=== PATIENT | male | born 1945 | race Caucasian/White ===

== ENCOUNTER → 2020-06-13 12:41 | Outpatient (CLI) | payer SELFPAY ==
[2020-06-13 10:41] VITALS: BMI 32.5
--- NOTE | 2020-06-13 12:55 | RAD_ITS ---
STUDY: X-RAY CHEST REASON FOR EXAM: Male, 75 years old. CHEST PAIN AND SOB ON EXERTION FOR AWHILE, TECHNIQUE: PA and lateral views of the chest. COMPARISON: None. FINDINGS: There is hyperinflation of the lungs consistent with chronic obstructive lung disease (COPD). There is no demonstrated pleural abnormality. Normal size heart. Normal mediastinum and tuyet. Normal visualized pulmonary arteries. There is atherosclerotic tortuosity of the aortic arch and descending thoracic aorta. Normal visualized thoracic spine. Normal visualized ribs, clavicles, and shoulders. There is no demonstrated abnormality of the visualized soft tissue structures of the upper abdomen. RAD/Chest PA and Lateral IMPRESSION: Emphysema without pneumonia or atelectasis. Electronically Signed: Preet Taylor MD at 16:59 EST Tel , Service support ,
[2020-06-13 14:16] LABS: Absolute Lymphocyte Count 1.89 X10^3/uL (0.83-4.51); Absolute Neutrophil Count 3.5 X10^3/uL (2.0-7.7); Basophil# 0.03 X10^3/uL; Basophil% 0.5 % (0-1); Eosinophil# 0.49 X10^3/uL; Eosinophils% 7.7 % (0-5); Hematocrit 42.6 % (40-54); Hemoglobin 13.7 g/dL (13.0-16.5); Lymphocyte # 1.89 X10^3/ul (4.0); Lymphocyte % 29.6 % (19-41); Mean Corp Hgb Conc 32.2 g/dL (32-36); Mean Corpuscular Hgb 29.3 pg (27.0-32.0); Monocyte# 0.51 X10^3/uL; NRBC Flagged by Analyzer 0 % (0-5); Neutrophil # 3.45 X10^3/uL (2.7-7.7); Platelet Count 165 K/mm3 (150-450); RBC Distribution Width CV 13.7 % (11.6-14.6); RBC Distribution Width SD 46.1 fl (35.1-43.9); Red Blood Count 4.68 M/mm3 (4.6-6.2); White Blood Count 6.4 K/mm3 (4.4-11.0)
[2020-06-13 14:22] LABS: International Normalized Ratio 1.5
[2020-06-13 14:23] LABS: Partial Thromboplast Time 40.7 Seconds (24.1-36.2)
[2020-06-13 14:42] LABS: AST(SGOT) 25 U/L (15-37); Alanine Aminotransfer ALT/SGPT 31 U/L (16-61); Albumin, Serum 3.7 g/dL (3.2-5.0); Alkaline Phosphatase 68 U/L (45-117); Anion Gap 5 (5-15); BUN 16 mg/dL (7-18); BUN/Creat Ratio 14.7 RATIO (10-20); Bilirubin, Direct 0.18 mg/dL (0.00-0.30); Calcium,Total 9.1 mg/dL (8.5-10.1); Chloride 102 mmol/L (98-107); Cholesterol 138 mg/dL (200); Creatinine, Serum 1.09 mg/dL (0.70-1.30); EST Glomerular Filtration Rate 70 mL/min (>60); Est Glom Filt Rate - Afr Amer 84 mL/min (>60); Globulin 4.1 g/dL (2.2-4.2); Glucose 95 mg/dL (74-106); High Density Lipoprotein 51 mg/dL; Potassium 4.4 mmol/L (3.5-5.1); Protein, Total 7.8 g/dL (6.4-8.2); Sodium Level 138 mmol/L (136-145); Triglycerides 159 mg/dL; Very Low Density Lipoprotein 32 mg/dL (5-40)
== END ==
PROVIDERS: PCP Internal Medicine; Referring Provider Internal Medicine Cardiovascular Disease; Visit Provider Internal Medicine Cardiovascular Disease
DX: R07.9 Chest pain, unspecified (principal); E78.00 Pure hypercholesterolemia, unspecified; I20.9 Angina pectoris, unspecified; I35.0 Nonrheumatic aortic (valve) stenosis; E78.2 Mixed hyperlipidemia; I10 Essential (primary) hypertension; I73.9 Peripheral vascular disease, unspecified; Z86.718 Personal history of other venous thrombosis and embolism
CPT/HCPCS: 36415; 71046; 80048; 80061; 80076; 85025; 85610; 85730

== ENCOUNTER → 2020-06-18 13:06 | Outpatient (CLI) | payer SELFPAY ==
[2020-06-13 10:41] VITALS: BMI 32.5
--- NOTE | 2020-06-18 13:17 | ECHOD_ITS ---
Reason For Study: Murmur Procedure This was a 2D Doppler, Color Flow transthoracic echocardiogram. The exam was of adequate technical quality. Exam performed in department. Left Ventricle Normal LV size. Left ventricular systolic function is normal. The estimated ejection fraction is 65 %. No evidence for diastolic dysfunction. No regional wall motion abnormalities noted. Right Ventricle Normal RV size. Normal systolic function. Atria The left atrium is mildly enlarged. Normal right atrium. No doppler evidence for ASD. Mitral Valve There is mild to moderate mitral annular calcification. Extension of the mitral annular calcification onto the base of the posterior mitral valve leaflet. Trivial mitral valve insufficiency. Tricuspid Valve Normal tricuspid valve. Trivial tricuspid valve insufficiency. Aortic Valve Trisinus/trileaflet aortic valve. Mild diffuse aortic valve thickening. Moderate to severe aortic valve calcification. Moderate to severe aortic valve stenosis. Trivial aortic valve insufficiency. Pulmonic Valve The pulmonic valve is not well visualized. Great Vessels Mild to moderately dilated aortic root. Pericardium/Pleural No pericardial effusion. MMode/2D Measurements & Calculations LVIDd: 4.9 cm IVSd: 0.81 cm LVOT diam: 2.2 cm LVIDs: 3.5 cm LVPWd: 1.2 cm LVOT area: 3.9 cm2 RVDd: 3.4 cm FS: 27.1 % LAV(MOD-bp): 75.8 ml Aortic Valve Planimetry: 1.1 cm2 LA A4 area: 23.4 cm2 LAV(MOD-bp) Indexed: 32.9 ml/m2 LAV(MOD-sp2): 77.8 ml LAV(MOD-sp4): 69.4 ml RA A4 area: 19.4 cm2 Time Measurements MV dec time: 0.27 sec Doppler Measurements & Calculations MV E max bon: 86.0 cm/sec Lat Peak E' Bon: 7.9 cm/sec Med Peak E' Bon: 6.5 cm/sec MV A max bon: 99.2 cm/sec E/E' lat: 10.8 E/E' med: 13.2 MV E/A: 0.87 MV V2 max: 108.0 cm/sec MV P1/2t max bon: 91.3 cm/sec Ao V2 max: 375.7 cm/sec MV max P.7 mmHg MV P1/2t: 97.4 msec Ao max P.5 mmHg MV V2 mean: 62.3 cm/sec MV dec slope: 274.6 cm/sec2 Ao V2 mean: 254.6 cm/sec MV mean P.8 mmHg Ao mean P.4 mmHg MV V2 VTI: 34.0 cm MVA(P1/2t): 2.3 cm2 Ao V2 VTI: 88.2 cm MVA(VTI): 3.1 cm2 EVERARDO(I,D): 1.2 cm2 EVERARDO(V,D): 1.0 cm2 AI max bon: 332.6 cm/sec LV V1 max: 97.6 cm/sec SV(LVOT): 104.3 ml AI max P.3 mmHg LV V1 max P.8 mmHg LV V1 mean P.3 mmHg AI dec slope: 128.1 cm/sec2 LV V1 mean: 70.4 cm/sec AI P1/2t: 760.8 msec LV V1 VTI: 26.9 cm PA V2 max: 104.0 cm/sec Interpretation Summary Left ventricular systolic function is normal. The estimated ejection fraction is 65 %. The left atrium is mildly enlarged. There is mild to moderate mitral annular calcification. Extension of the mitral annular calcification onto the base of the posterior mitral valve leaflet. Trivial mitral valve insufficiency. Trivial tricuspid valve insufficiency. Moderate to severe aortic valve stenosis. Trivial aortic valve insufficiency. Mild to moderately dilated aortic root. No evidence for diastolic dysfunction. Ordering Physician: Freddie Cantrell Referring Physician: Conor Contreras Performed By: Anoop Watkins RCS
== END ==
PROVIDERS: PCP Internal Medicine; Visit Provider Internal Medicine Cardiovascular Disease
DX: R01.1 Cardiac murmur, unspecified (principal); I20.9 Angina pectoris, unspecified; I35.0 Nonrheumatic aortic (valve) stenosis; I73.9 Peripheral vascular disease, unspecified; I10 Essential (primary) hypertension; E78.2 Mixed hyperlipidemia; Z86.718 Personal history of other venous thrombosis and embolism
CPT/HCPCS: 93306

== ENCOUNTER 2020-06-21 07:48 | Day surgery (SDC) | payer SELFPAY ==
[2020-06-13 10:41] VITALS: BMI 32.5
[2020-06-20 09:23] VITALS: BMI 32.5
--- NOTE | 2020-06-21 05:00 | HP_ITS ---
ADDENDUM by Dr. Freddie Cantrell MD on 06/13/20 at 1321 Addendum entered and electronically signed by Freddie Cantrell MD 06/13/20 13:21: Assessment & Plan 1. Nonrheumatic aortic (valve) stenosis I35.0 mild to moderate per ECHO 12/27/19 Plan - Dr. Freddie Cantrell MD The patient has a diagnosis of aortic valve stenosis. Based upon his previous noninvasive studies the degree/severity of aortic valve stenosis appears to is varied. This is included anywhere from mild to moderate to moderate to severe. At the present time based upon his symptoms and his previous diagnosis he will be asked to have a follow-up transthoracic echocardiogram performed. Orders Orders: 12 Lead EKG performed by [facility] Today Left & Right Heart Cath Today Basic Metabolic Profile (BMP) Today Lipid Profile Today Liver Profile Today Partial Thromboplast Time Today Prothrombin Time w/INR Today Echo Complete Today CBC W/Diff, Automated Today Chest PA and Lateral Today 2. Mixed hyperlipidemia E78.2 Plan - Dr. Freddie Cantrell MD The patient has a history of hyperlipidemia. He is on medical management. Orders Orders: Left & Right Heart Cath Today Basic Metabolic Profile (BMP) Today Lipid Profile Today Liver Profile Today Partial Thromboplast Time Today Prothrombin Time w/INR Today Echo Complete Today CBC W/Diff, Automated Today Chest PA and Lateral Today 3. Essential hypertension I10 Plan - Dr. Freddie Cantrell MD The patient has a history of hypertension. At the moment his blood pressure appears to be well controlled on no antihypertensive therapy. Orders Orders: 12 Lead EKG performed by B[facility] Today Left & Right Heart Cath Today Basic Metabolic Profile (BMP) Today Lipid Profile Today Liver Profile Today Partial Thromboplast Time Today Prothrombin Time w/INR Today Echo Complete Today CBC W/Diff, Automated Today Chest PA and Lateral Today 4. Peripheral arterial disease I73.9 Plan - Dr. Freddie Cantrell MD The patient has been evaluated for PAD in the past. The results that are available for review are noted above. Orders Orders: Left & Right Heart Cath Today Basic Metabolic Profile (BMP) Today Lipid Profile Today Liver Profile Today Partial Thromboplast Time Today Prothrombin Time w/INR Today Echo Complete Today CBC W/Diff, Automated Today Chest PA and Lateral Today 5. 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 Freddie Cantrell MD The patient has a history of DVT. It is unclear as to the exact etiology and whether or not he truly has an underlying inheritable/congenital condition. He has been on and then off and then back on anticoagulant therapy. Orders Orders: Left & Right Heart Cath Today Basic Metabolic Profile (BMP) Today Lipid Profile Today Liver Profile Today Partial Thromboplast Time Today Prothrombin Time w/INR Today Echo Complete Today CBC W/Diff, Automated Today Chest PA and Lateral Today 6. Angina pectoris I20.9 Plan - Dr. Freddie Cantrell MD The patient has symptoms that is concerning for an exertional angina pectoris scenario. This does raise concern about a relationship to his aortic valve disease but also with respect to the possibility of underlying CAD based upon his cardiovascular risk factors. Orders Orders: Left & Right Heart Cath Today Basic Metabolic Profile (BMP) Today Lipid Profile Today Liver Profile Today Partial Thromboplast Time Today Prothrombin Time w/INR Today Echo Complete Today CBC W/Diff, Automated Today Chest PA and Lateral Today Plan Detail Other Orders Orders: 12 Lead EKG performed by B[facility] Today I34.0, I35.1 Lipid Profile Today E78.00 Liver Profile Today E78.00 Other Medications New: aspirin 81 mg PO DAILY 1 tab 0RF Additional Comments - Dr. Freddie Cantrell MD The case was reviewed with the patient with his daughter present. At the present time he has been recommended to have a follow-up echocardiogram to reassess his aortic valve disorder. However based upon his symptoms and his known diagnosis and his cardiovascular risks he is also been recommended to have further evaluation with a diagnostic cardiac catheterization to evaluate not only his aortic valve disorder but also for the possibility of CAD. The procedure and risks were discussed with them. They were both agreeable to this approach. There was also discussion with respect to how to manage his anticoagulant therapy in and around the time of a diagnostic cardiac catheterization. The options included interruption of anticoagulant therapy with bridging anticoagulant therapy versus no bridging anticoagulant therapy. The patient's daughter states that when he was without his anticoagulant therapy it was for a long period of time and there was a question as to whether or not he had a recurrent DVT. She states there was no acute events soon after his lack of anticoagulant therapy. Thus, she was hopeful, as well as the patient, that this could be done without bridging anticoagulant therapy based upon his clinical scenario and lack of definitive diagnosis of any inheritable/congenital coagulopathy. The risks and benefits of bridging versus nonbridging anticoagulant therapy were discussed with him. At the present time they wanted to proceed with the above evaluation without bridging anticoagulant therapy. Depending upon the patient's findings he may need not only medical therapy but consideration for further tertiary care center evaluation of possible underlying CAD as well as his valvular heart disease. Thank you for allowing me to participate in the care of your patient. Please don't hesitate to call if any issues arise. This note was generated using a voice recognition system and there may be incorrect words, spelling or punctuation that were not noted when reviewing the office note prior to saving. Health Concerns The surgeon/proceduralist and patient have discussed in detail the risk of exposure to and/or potential harm posed by the COVID-19 virus with having a surgery/procedure at this time versus the risk of? delaying the surgery/procedure. It is not possible to know either the risk of delaying the surgery or procedure or chance of getting an infection with perfect accuracy, but a joint decision was made between the patient and the surgeon/proceduralist ?to proceed at this time with the scheduled surgery/procedure as indicated on the consent form. Follow Up 3 Months (PFM) 06/13/20 1321 <Electronically signed by Freddie faulkner MD> Date _ Freddie Cantrell MD cc: Dr. Conor Contreras MD ~* Signed HPI HPI History of Present Illness Details: This is a 75-year-old white male who presents today for outpatient cardiovascular consultation of a history of underlying aortic valve stenosis as well as concerns of exertional chest discomfort and shortness of breath/dyspnea concerning for angina pectoris. He states he has been followed in the past for a cardiac murmur and is somewhat knowledgeable about his underlying aortic valve disease. It appears that in December 2019 he had a transthoracic echocardiogram performed through the [facility] system. The left ventricle was reported as normal with an LVEF 65% with mild increased wall thickness, the mitral valve annulus was mildly calcified and there was mild MR, there was mild TR, the aortic valve was reported as having mild to moderate stenosis with mild AI, however his aortic valve area was reported at 0.9 cm?, the pulmonic valve had trivial OH. He had an echocardiogram performed through the same system in November 2018. Per that report he was reported as having an LVEF of 60%, concentric LVH, and moderate to severe aortic valve stenosis with an aortic valve area of 1.1 cm?. It also appears that in September 2014 he had a study done of his lower extremities which reported no evidence of arterial insufficiency in a nonexercised patient involving the right lower extremity or the left lower extremity. He also had a study done in August 2016 that stated he had chronic nonocclusive echogenic filling with abnormal compressibility involving the deep and superficial veins in the right common femoral vein, the right femoral vein, the right deep femoral vein, the right popliteal vein, the right posterior tibial vein, and the right greater saphenous vein which were consistent with the absence of acute DVT in the right lower extremity. He states that when he exerts himself he gets chest discomfort/pressure/tightness as well as feels short of breath. This improves when he stops and rests. He does not have orthopnea or PND. He states he has worn support stockings because of his history of DVT. He does not recall the etiology of his DVT. There is been no definitive inheritable condition diagnosed. He states he has been on warfarin for a long time. He was off of it for a long time. His daughter who is with him states that she believes at some point in time after he was off of it he may have developed recurrent DVT. He was placed back on his warfarin therapy and has remained on it. There is been no report of any recent acute DVT. He had an ECG in the office today. He was noted to be in sinus rhythm with no acute ECG changes. Intake Vital Signs 06/13/20 Height 6 ft 06/13/20 Weight: 240 lb 06/13/20 BMI 32.5 06/13/20 BP 102/60 06/13/20 Blood Pressure Location Lt brachial 06/13/20 Position Sitting 06/13/20 Respiration 18 06/13/20 Pulse 68 06/13/20 Pulse Source Auscultation Intake Visit Reasons: aortic valve stenosis/Ref. 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 Accompanied by: Daughter Allergies Penicillins Allergy (Unknown, Verified 06/13/20 10:41) unknown Medications atorvastatin 20 mg tablet 20 mg PO QHS 06/03/20 [History Confirmed 06/13/20] pantoprazole 40 mg tablet,delayed release 40 mg PO DAILY 06/03/20 [History Confirmed 06/13/20] tamsulosin 0.4 mg capsule 0.4 mg PO QHS 06/03/20 [History Confirmed 06/13/20] warfarin 5 mg tablet 5 mg PO DAILY 06/03/20 [History Confirmed 06/13/20] aspirin 81 mg tablet,delayed release 81 mg PO DAILY #1 tab 06/13/20 [Rx Confirmed 06/13/20] omega-3 fatty acids 1,000 mg capsule 1,000 mg PO DAILY 06/13/20 [History Confirmed 06/13/20] [facility] Medical History Mixed hyperlipidemia (Chronic) GERD (gastroesophageal reflux disease) (Chronic) PAD (peripheral artery disease) (Chronic) Non-rheumatic mitral regurgitation (Acute) Non-rheumatic aortic regurgitation (Acute) Nonrheumatic aortic (valve) stenosis (Chronic) Essential hypertension (Chronic) History of DVT (deep vein thrombosis) (Chronic) BPH (benign prostatic hyperplasia) (Chronic) Peripheral neuropathy (Chronic) Surgical History History of hernia repair (Resolved) Family History Other Sudden cardiac Social History (Updated 06/13/20 @ 13:[address] Freddie Cantrell MD) Smoking Status: Former smoker alcohol intake: never substance use type: does not use caffeine: Yes Type: coffee Number of servings: 1 ROS Const Const: Positive for fatigue (increased); negative for weakness, frequent falls, excessive sweating, weight gain or weight loss Eyes Eyes: Negative for transient loss of vision, blurry vision or change in vision ENT ENT: Positive for balance problems (slight); negative for dizziness Cardio Chest Pain: Yes Character: sharp Onset: exercise Location: mid sternal Relieving: rest Palpitations: No Edema: None (wears compression socks) Muscle aches with walking: None Resp Respiratory: Negative for SOB with activity, SOB at rest, SOB orthopnea\SOB lying down, Cough, Coughing up blood/hemoptysis, chest congestion, pain on inspiration, snoring, stridor, wheezing, crackles, paroxysmal nocturnal dyspnea or other GI GI: Negative vomiting or vomiting blood/hematemesis : Negative for hematuria Musc Musc: Positive for balance problems (slight); negative for muscle aches/ myalgia, muscle weakness or joint pain Skin Skin: Negative non-healing lesions or rash Neuro Neuro: Negative for dizziness, lightheadedness, orthostatic symptoms, frequent falls, weakness or blurry vision Robert Hematologic/Lymphatic: Negative for easy bleeding Endo Endo: Positive for fatigue (increased); negative for excessive sweating Psych Psych: Negative for anxiety or depression Allergy Allergy/Immunology: Negative for hives, Negative for rash Cardiology Exam Const Appearance: cooperative, healthy appearing, comfortable, no acute distress, well developed and well groomed Nutritional Appearance: overweight Orientation: alert, awake and oriented x3 Head Head: normal to inspection, normocephalic and atraumatic Ears: hearing grossly normal bilaterally Nose: external nose normal Face and Sinus: face symmetric Eyes Eyelids: eyelids normal Conjunctivae: conjunctivae normal Pupils: PERRL EOM: EOM intact bilaterally Neck Neck: normal visual inspection and full ROM Chest Chest inspection: normal inspection of the chest, symmetric chest movement and normal respiratory effort Auscultation: Bilateral: Clear to Auscultation Cardio Palpation: normal PMI Rate: regular rate Rhythm: regular rhythm Heart sounds: S1 normal and S2 normal Murmur: Grade 3/6, harsh and crescendo-decrescendo GI GI: normal to inspection, no hepatosplenomegaly and bowel sounds present Neuro General: alert, awake, oriented x3 and moves all extremities Skin Skin: no rashes or lesions noted Extremities Bruits: Positive: Right Radial Bruit, Left Radial Bruit Lower Extremity Edema: +1: Bilateral Bilateral support stockings Psych Psychological: normal affect Assessment & Plan 1. Nonrheumatic aortic (valve) stenosis I35.0 mild to moderate per ECHO 12/27/19 Plan The patient has a diagnosis of aortic valve stenosis. Based upon his previous noninvasive studies the degree/severity of aortic valve stenosis appears to is varied. This is included anywhere from mild to moderate to moderate to severe. At the present time based upon his symptoms and his previous diagnosis he will be asked to have a follow-up transthoracic echocardiogram performed. Orders Orders: 12 Lead EKG performed by [facility] Today Left & Right Heart Cath Today Basic Metabolic Profile (BMP) Today Lipid Profile Today Liver Profile Today Partial Thromboplast Time Today Prothrombin Time w/INR Today Echo Complete Today CBC W/Diff, Automated Today Chest PA and Lateral Today 2. Mixed hyperlipidemia E78.2 Plan The patient has a history of hyperlipidemia. He is on medical management. Orders Orders: Left & Right Heart Cath Today Basic Metabolic Profile (BMP) Today Lipid Profile Today Liver Profile Today Partial Thromboplast Time Today Prothrombin Time w/INR Today Echo Complete Today CBC W/Diff, Automated Today Chest PA and Lateral Today 3. Essential hypertension I10 Plan The patient has a history of hypertension. At the moment his blood pressure appears to be well controlled on no antihypertensive therapy. Orders Orders: 12 Lead EKG performed by BMS Today Left & Right Heart Cath Today Basic Metabolic Profile (BMP) Today Lipid Profile Today Liver Profile Today Partial Thromboplast Time Today Prothrombin Time w/INR Today Echo Complete Today CBC W/Diff, Automated Today Chest PA and Lateral Today 4. Peripheral arterial disease I73.9 Plan The patient has been evaluated for PAD in the past. The results that are available for review are noted above. Orders Orders: Left & Right Heart Cath Today Basic Metabolic Profile (BMP) Today Lipid Profile Today Liver Profile Today Partial Thromboplast Time Today Prothrombin Time w/INR Today Echo Complete Today CBC W/Diff, Automated Today Chest PA and Lateral Today 5. 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 It is unclear as to the exact etiology and whether or not he truly has an underlying inheritable/congenital condition. He has been on and then off and then back on anticoagulant therapy. Orders Orders: Left & Right Heart Cath Today Basic Metabolic Profile (BMP) Today Lipid Profile Today Liver Profile Today Partial Thromboplast Time Today Prothrombin Time w/INR Today Echo Complete Today CBC W/Diff, Automated Today Chest PA and Lateral Today 6. Angina pectoris I20.9 Plan The patient has symptoms that is concerning for an exertional angina pectoris scenario. This does raise concern about a relationship to his aortic valve disease but also with respect to the possibility of underlying CAD based upon his cardiovascular risk factors. Orders Orders: Left & Right Heart Cath Today Basic Metabolic Profile (BMP) Today Lipid Profile Today Liver Profile Today Partial Thromboplast Time Today Prothrombin Time w/INR Today Echo Complete Today CBC W/Diff, Automated Today Chest PA and Lateral Today Plan Detail Other Orders Orders: 12 Lead EKG performed by BMS Today I34.0, I35.1 Lipid Profile Today E78.00 Liver Profile Today E78.00 Other Medications New: aspirin 81 mg PO DAILY 1 tab 0RF Additional Comments The case was reviewed with the patient with his daughter present. At the present time he has been recommended to have a follow-up echocardiogram to reassess his aortic valve disorder. However based upon his symptoms and his known diagnosis and his cardiovascular risks he is also been recommended to have further evaluation with a diagnostic cardiac catheterization to evaluate not only his aortic valve disorder but also for the possibility of CAD. The procedure and risks were discussed with them. They were both agreeable to this approach. There was also discussion with respect to how to manage his anticoagulant therapy in and around the time of a diagnostic cardiac catheterization. The options included interruption of anticoagulant therapy with bridging anticoagulant therapy versus no bridging anticoagulant therapy. The patient's daughter states that when he was without his anticoagulant therapy it was for a long period of time and there was a question as to whether or not he had a recurrent DVT. She states there was no acute events soon after his lack of anticoagulant therapy. Thus, she was hopeful, as well as the patient, that this could be done without bridging anticoagulant therapy based upon his clinical scenario and lack of definitive diagnosis of any inheritable/congenital coagulopathy. The risks and benefits of bridging versus nonbridging anticoagulant therapy were discussed with him. At the present time they wanted to proceed with the above evaluation without bridging anticoagulant therapy. Depending upon the patient's findings he may need not only medical therapy but consideration for further tertiary care center evaluation of possible underlying CAD as well as his valvular heart disease. Thank you for allowing me to participate in the care of your patient. Please don't hesitate to call if any issues arise. This note was generated using a voice recognition system and there may be incorrect words, spelling or punctuation that were not noted when reviewing the office note prior to saving. Follow Up 3 Months (PFM) Coding Level of Care Code Off vis,new,level 5 Diagnoses Nonrheumatic aortic (valve) stenosis I35.0 Mixed hyperlipidemia E78.2 Essential hypertension I10 Peripheral arterial disease I73.9 History of DVT (deep vein thrombosis) Z86.718 Angina pectoris I20.9 Coding Level of Care Code Off vis,new,level 5 Diagnoses Nonrheumatic aortic (valve) stenosis I35.0 Mixed hyperlipidemia E78.2 Essential hypertension I10 Peripheral arterial disease I73.9 History of DVT (deep vein thrombosis) Z86.718 Angina pectoris I20.9 Supplemental Info Supplemental Information Diagnostics Electrocardiogram 06/13/20 Chest X-Ray 06/13/20 I have examined the patient the following changes are noted: The patient has undergone additional noninvasive valuation with a transthoracic echocardiogram with the results as noted below. Interpretation Summary Left ventricular systolic function is normal. The estimated ejection fraction is 65 %. The left atrium is mildly enlarged. There is mild to moderate mitral annular calcification. Extension of the mitral annular calcification onto the base of the posterior mitral valve leaflet. Trivial mitral valve insufficiency. Trivial tricuspid valve insufficiency. Moderate to severe aortic valve stenosis. Trivial aortic valve insufficiency. Mild to moderately dilated aortic root. No evidence for diastolic dysfunction. As noted before, case has been previously reviewed with the patient with his daughter present. The recommendation was to proceed with further evaluation with diagnostic cardiac catheterization. The procedure and risks were discussed and the patient with his daughter present granted consent.
[2020-06-21 08:21] LABS: Prothrombin Time Fingerstick 14.2 SEC (11.9-14.4)
[2020-06-21 09:46] LABS: Base Excess 2 mmol/L (-2 to +2); Bicarbonate 27.8 mmol/L (22-26); Blood Gas Specimen Type ART; PO2 36 mmHG (75-100); SO2 65 % (95-99); Total Carbon Dioxide 29 mmol/L; pCO2 51.8 mmHg (35-45); pH 7.34 (7.35-7.45)
[2020-06-21 09:46] LABS: Base Excess 3 mmol/L (-2 to +2); Bicarbonate 27.9 mmol/L (22-26); Blood Gas Specimen Type ART; PO2 69 mmHG (75-100); SO2 93 % (95-99); Total Carbon Dioxide 29 mmol/L; pCO2 47.3 mmHg (35-45); pH 7.38 (7.35-7.45)
[2020-06-21 09:55] LABS: Blood Gas Specimen Type VEN; VBG BASE EXCESS 3 mmol/L (-1.0-3.5); VBG Bicarbonate 29 mmol/L (22-26); VBG PO2 38 mmHg (25-40); VBG SO2 67 % (50-70); VBG TCO2 31 mmol/L (23-33); VBG pCO2 54.7 mmHg (41-51); VBG pH 7.33 (7.32-7.42)
[2020-06-21 10:00] LABS: Blood Gas Specimen Type VEN; VBG BASE EXCESS 2 mmol/L (-1.0-3.5); VBG Bicarbonate 28 mmol/L (22-26); VBG PO2 37 mmHg (25-40); VBG SO2 65 % (50-70); VBG TCO2 29 mmol/L (23-33); VBG pCO2 53.1 mmHg (41-51); VBG pH 7.33 (7.32-7.42)
[2020-06-21 10:00] LABS: Blood Gas Specimen Type VEN; VBG BASE EXCESS 2 mmol/L (-1.0-3.5); VBG Bicarbonate 28 mmol/L (22-26); VBG PO2 37 mmHg (25-40); VBG SO2 66 % (50-70); VBG TCO2 30 mmol/L (23-33); VBG pCO2 52.1 mmHg (41-51); VBG pH 7.34 (7.32-7.42)
--- NOTE | 2020-06-21 11:54 | CL.D_ITS ---
Patient Name: MANGO CASE Study Date: 06/21/2020 Performing: Freddie Cantrell MD Ht: 72.04 inches 183 cm : 1945 Wt: 240.3 lbs 109 kg Age: 75 Gender: male BSA: 2.3 PROCEDURE(S) PERFORMED BQ27-EPA/LHC/COR/LV DC11-AO ROOT ANGIO WITH HEART CATH CLINICAL PROFILE AND INDICATIONS Indications: Worsening Angina, Suspected CAD, Valvular Disease Heart Failure: None Stress/Imaging Stress/Image Study Performed: No Angina Classification Anginal Classification w/in 2 Weeks: CCS III CAD Presentations: Stable angina. CONCLUSIONS Elevated Left Ventricular End Diastolic Pressure Right heart pressures - mildly to moderately elevated The patient has pulmonary hypertension which is mild - moderate Intracardiac shunting: None Normal LV size, wall motion,and systolic function LVEF: by LV gram 55 % [place] Multivessel CAD Aortic Valve Calcification- Moderate - Severe Aortic Valve Stenosis- Moderate Aortic Root dilated Aortic Root Aneurysm RECOMMENDATIONS Risk factor modification Medical therapy Routine post intervention care Surgery consult for valvular disease, thoracic aortic disease, and CAD DESCRIPTION OF PROCEDURE The patient arrived to the procedure lab. The risks and benefits of the procedure as well as a full d escription of our services here and current unavailability of surgical backup were fully explained to the patient and/or their significant other prior to the catheterization. The Timeout was completed, verifying the correct patient and procedure. The patient's procedural site was prepped and draped in the usual fashion. Local anesthetic was given subcutaneously to right radial region with Lidocaine 2% . Using a modified Seldinger technique, arterial access was obtained via the right radial artery, a 6 Fr sheath was inserted. Venous access was obtained via the right brachiocephalic vein, with Micropunc ture set replacing the 20g IV in same arm. A 7Fr thermal dilution catheter was inserted and right hea rt pressures were recorded, it was then advanced to PA position for cardiac outputs. O2 saturations w ere then obtained. Thermal dilution cardiac outputs were then recorded. Left Coronary Artery selective angiography was performed in multiple views using a 5 Fr. 4.0 [place] catheter. Right Coronary Artery selective angiography was then performed in multiple views using a 6 Fr. JR 4 cathete r. Left Ventriculography was performed in [place] projection using a 5 Fr. [place] catheter. Simultaneous pressures were then recorded. LV to AO pullback pressures were then recorded. The Thermal dilution c atheter was then removed.The venous sheath was then pulled and manual compression applied until hemos tasis achieved. The arterial sheath was pulled and a TR Band was applied for hemostasis 9cc air inser francesco CORONARY ANGIOGRAPHY DOMINANCE: Right Dominant LEFT HEART ASSESSMENT Left Ventricular Ejection Fraction: by LV Gram 55 % Normal LV wall motion Elevated Left Ventricular End Diastolic Pressure LVEDP: 32 mmHg RIGHT HEART ASSESSMENT Thermal CO: 6.37 Thermal CI: 2.77 Sona CO: 6.08 Sona CI: 2.64 PW: 12 PA: 35/14 22 RV: 35/3 12 RA: 10 8 PVR: 126 SVR: 1331 Aortic Valve Area: 1.41 Aortic Valve Index: 0.61 Aortic Valve Mean Gradient: 23.1 Mitral Valve Area: >3.50 Mitral Valve index: 1.52 Mitral Valve Mean Gradient: 9.5 Right Heart pressures - elevated Pulmonary Hypertension Mild - Moderate Intracardiac shunting: None LEFT MAIN: Moderate calcification, eccentric: calified plaque: 50 % Stenosis LEFT ANTERIOR DESCENDING ARTERY: PROX LAD: 10 - 25 % Stenosis MID LAD: Mild luminal irregularities DIAGONAL 1: Proximal - 10 - 25 % Stenosis CIRCUMFLEX ARTERY: PROX CIRC: Mild luminal irregularities, eccentric: 10 - 25 % Stenosis RAMUS: is occluded RIGHT CORONARY ARTERY: Mild luminal irregularities VALVE FINDINGS: Aortic Valve Calcification - moderate - severe Aortic Valve Stenosis - moderate AORTIC ROOT: Dilated Aneurysm COMPLICATIONS No Complications PROCEDURE MEDICATIONS Fentanyl 50 mcg IV Versed 1 mg IV Heparin diluted in 23cc Heparinized saline. Patient given 10cc IA of this solution. 06/21/2020 09:25: 56 Heparin diluted in 23cc Heparinized saline. Patient given 10cc IA of this solution. 06/21/2020 09:25: 56 Verapamil 2.5mg, Ntg 100mcgs, 2000 units of Heparin diluted in 23cc Heparinized saline. Patient give n 10cc IA of this solution. 06/21/2020 09:25:56 SUMMARY OF HEMODYNAMIC DATA Time AIR REST ECG 08:17:21 Art 134/70 (92) 09:32:41 RA 10/ (8) SV 09:48:06 RV 35/3, 12 09:48:48 PA 35/14 (22) PA 09:49:25 PW 15/13 (12) PV 09:50:28 AO 145/84 (114) SA 10:09:45 PA 44/18 (26) 10:22:25 LV 177/14, 33 10:55:01 PW 29/37 (28) 10:55:01 LV 181/10, 32 10:55:07 PW / (21) 10:55:07 LV 191/3, 33 10:56:20 PW 30/30 (22) 10:56:20 LV 193/3, 33 10:56:26 PW 32/32 (24) 10:56:26 LVp 190/2, 34 10:56:42 AOp 181/81 (125) 10:56:47 PW 24/ (17) 10:58:08 PA 45/ (32) 10:58:21 RV 42/6, 17 10:58:36 RA 18/15 (13) 10:59:05 RM AIR REST 11:41:52 Valve Area (c P-P/ms Time AIR REST Mitral 3.50 9.5 mn/198 ms 10:55:01 Aortic 1.41 23.1 mn/348 ms9.0 pk/348 ms 10:56:42 Type SV CO (l/m) CI (l/m/ HR Time AIR REST Thermal 104.40 6.37 2.77 61 08:17:21 Sona 99.70 6.08 2.64 61 08:17:21 Label % O2 Pres/Loc Time AIR REST AO 93 PV 09:44:41 RA 66 SV 09:55:29 SVC 67 09:55:32 PA 65 PA 09:58:33 Signed By Freddie Cantrell MD On 06/21/2020 11:53:44 Freddie Cantrell MD
== END 2020-06-21 14:20 | disposition home or self-care (01) ==
PROVIDERS: PCP Internal Medicine; Referring Provider Internal Medicine Cardiovascular Disease; Visit Provider Internal Medicine Cardiovascular Disease
DX: I25.118 Atherosclerotic heart disease of native coronary artery with other forms of angina pectoris (principal); I27.20 Pulmonary hypertension, unspecified; I35.0 Nonrheumatic aortic (valve) stenosis; I73.9 Peripheral vascular disease, unspecified; I10 Essential (primary) hypertension; E78.2 Mixed hyperlipidemia; E66.3 Overweight; Z68.32 Body mass index [BMI] 32.0-32.9, adult; Z86.718 Personal history of other venous thrombosis and embolism; Z79.82 Long term (current) use of aspirin; Z79.01 Long term (current) use of anticoagulants; Z87.891 Personal history of nicotine dependence
CPT/HCPCS: 36416; 82803; 85610; 93460; 93567; 99152; 99153; J7040; Q9967; C1751; C1769; C1894

== ENCOUNTER → 2020-08-26 09:57 | Outpatient (CLI) | payer SELFPAY ==
[2020-08-26 08:38] VITALS: BMI 30.6
--- NOTE | 2020-08-26 10:02 | RAD_ITS ---
STUDY: X-RAY CHEST REASON FOR EXAM: Male, 75 years old. [place] TECHNIQUE: PA and lateral views of the chest. COMPARISON: Comparison is made with prior study dated 06/13/2020. FINDINGS: Surgical clips are seen in the right upper hemithorax. There now is evidence of a small left pleural effusion with left basilar infiltration and/or atelectasis. Sternal cerclage wires are present from a prior sternotomy. Prior mitral bowel replacement. Normal mediastinum and tuyet. Normal visualized pulmonary arteries. There is atherosclerotic calcification of the aortic arch with tortuosity. There are degenerative changes of the visualized thoracic spine. Normal visualized ribs, clavicles, and shoulders. There is no demonstrated abnormality of the visualized soft tissue structures of the upper abdomen. RAD/Chest PA and Lateral IMPRESSION: Small left pleural effusion with left basilar atelectasis and/or infiltrate. Electronically Signed: Omid Burleson MD at 13:23 EDT , Service support ,
[2020-08-26 11:24] LABS: Absolute Lymphocyte Count 1.81 X10^3/uL (0.83-4.51); Absolute Neutrophil Count 4.8 X10^3/uL (2.0-7.7); Basophil# 0.02 X10^3/uL; Basophil% 0.3 % (0-1); Eosinophil# 0.45 X10^3/uL; Eosinophils% 5.8 % (0-5); Hematocrit 39.5 % (40-54); Hemoglobin 12.6 g/dL (13.0-16.5); Lymphocyte # 1.81 X10^3/ul (4.0); Lymphocyte % 23.1 % (19-41); Mean Corp Hgb Conc 31.9 g/dL (32-36); Mean Corpuscular Volume 90.8 fL (80-94); Mean Platelet Vol. 10.4 fl (6.2-12.0); Monocyte# 0.68 X10^3/uL; Monocyte% 8.7 % (0-10); NRBC Flagged by Analyzer 0 % (0-5); Neutrophil # 4.83 X10^3/uL (2.7-7.7); Neutrophil % 61.7 % (47-70); Platelet Count 257 K/mm3 (150-450); RBC Distribution Width CV 13.6 % (11.6-14.6); RBC Distribution Width SD 45.6 fl (35.1-43.9); Red Blood Count 4.35 M/mm3 (4.6-6.2); White Blood Count 7.8 K/mm3 (4.4-11.0)
[2020-08-26 11:32] LABS: Prothrombin Time (Protime)PT. 42.2 SECONDS (11.7-14.9)
[2020-08-26 11:35] LABS: International Normalized Ratio 4.4
[2020-08-26 12:05] LABS: Anion Gap 7 (5-15); BUN 23 mg/dL (7-18); BUN/Creat Ratio 21.5 RATIO (10-20); Calcium,Total 8.9 mg/dL (8.5-10.1); Chloride 103 mmol/L (98-107); Creatinine, Serum 1.07 mg/dL (0.70-1.30); EST Glomerular Filtration Rate 71 mL/min (>60); Est Glom Filt Rate - Afr Amer 86 mL/min (>60); Glucose 105 mg/dL (74-106); Sodium Level 137 mmol/L (136-145)
== END ==
PROVIDERS: PCP Internal Medicine; Referring Provider Physician Assistant Medical; Visit Provider Physician Assistant Medical
DX: I25.10 Atherosclerotic heart disease of native coronary artery without angina pectoris (principal); I77.810 Thoracic aortic ectasia; I10 Essential (primary) hypertension; R06.00 Dyspnea, unspecified; Z95.3 Presence of xenogenic heart valve; Z95.1 Presence of aortocoronary bypass graft; Z98.890 Other specified postprocedural states
CPT/HCPCS: 36415; 71046; 80048; 85025; 85610

== ENCOUNTER → 2020-10-09 08:11 | Outpatient (CLI) | payer SELFPAY ==
[2020-08-26 08:38] VITALS: BMI 30.6
--- NOTE | 2020-10-09 08:13 | ECHOD_ITS ---
Reason For Study: AVR Procedure This was a 2D Doppler, Color Flow transthoracic echocardiogram. The study was technically difficult. Exam performed in department. Left Ventricle Normal LV size. Left ventricular systolic function is normal. The estimated ejection fraction is 55 %. Post operative septal motion. No regional wall motion abnormalities noted. Right Ventricle Normal RV size. Normal systolic function. Atria The left atrium is mildly enlarged. The right atrium is mildly enlarged. No doppler evidence for ASD. Mitral Valve There is moderate mitral annular calcification. Extension of the mitral annular calcification onto the base of the posterior mitral valve leaflet. Mild (1+) mitral valve insufficiency. Tricuspid Valve Normal tricuspid valve. Mild tricuspid valve insufficiency. Right ventricular systolic pressure estimated to be 28 mmHg. Aortic Valve Stable appearing bioprosthetic aortic valve apparatus. Pulmonic Valve The pulmonic valve is not well visualized. Great Vessels The aortic root is not well visualized. Pericardium/Pleural No pericardial effusion. MMode/2D Measurements & Calculations LVIDd: 3.5 cm IVSd: 1.4 cm LVOT diam: 2.0 cm LVIDs: 2.7 cm LVPWd: 1.1 cm LVOT area: 3.1 cm2 RVDd: 3.7 cm FS: 24.0 % LAV(MOD-bp): 78.0 ml LVAd ap4: 29.2 cm2 LVAd ap2: 31.3 cm2 LAV(MOD-bp) Indexed: 34.8 ml/m2 LVLd ap4: 7.6 cm LVLd ap2: 7.8 cm LAV(MOD-sp2): 90.3 ml EDV(MOD-sp4): 92.8 ml EDV(MOD-sp2): 106.1 ml LAV(MOD-sp4): 65.5 ml EDV(sp4-el): 95.3 ml EDV(sp2-el): 106.5 ml LVAs ap4: 19.0 cm2 LVAs ap2: 19.5 cm2 LVLs ap4: 6.7 cm LVLs ap2: 6.9 cm ESV(MOD-sp4): 46.5 ml ESV(MOD-sp2): 47.1 ml ESV(sp4-el): 45.4 ml ESV(sp2-el): 46.8 ml EF(MOD-sp4): 49.9 % EF(MOD-sp2): 55.6 % EF(sp4-el): 52.4 % SV(MOD-sp4): 46.3 ml SV(MOD-sp2): 59.0 ml SV(sp4-el): 49.9 ml LA dimension(2D): 4.9 cm LA A4 area: 22.1 cm2 RA A4 area: 19.2 cm2 Doppler Measurements & Calculations MV E max bon: 92.2 cm/sec Lat Peak E' Bon: 7.2 cm/sec Med Peak E' Bon: 5.2 cm/sec MV A max bon: 86.5 cm/sec E/E' lat: 12.9 E/E' med: 17.8 MV E/A: 1.1 Ao V2 max: 209.3 cm/sec LV V1 max: 138.6 cm/sec SV(LVOT): 107.9 ml Ao max P.5 mmHg LV V1 max P.7 mmHg Ao V2 mean: 147.8 cm/sec LV V1 mean P.3 mmHg Ao mean P.7 mmHg LV V1 mean: 97.7 cm/sec Ao V2 VTI: 50.8 cm LV V1 VTI: 34.3 cm EV[place]ARDO(I,D): 2.1 cm2 [place](V,D): 2.1 cm2 PA V2 max: 100.0 cm/sec TR max bon: 248.3 cm/sec TR max P.7 mmHg ECHO/Echo Complete Interpretation Summary The study was technically difficult. Left ventricular systolic function is normal. The estimated ejection fraction is 55 %. Post operative septal motion. The left atrium is mildly enlarged. The right atrium is mildly enlarged. There is moderate mitral annular calcification. Extension of the mitral annular calcification onto the base of the posterior mi tral valve leaflet. Mild (1+) mitral valve insufficiency. Mild tricuspid valve insufficiency. Stable appearing bioprosthetic aortic valve apparatus. Right ventricular systolic pressure estimated to be 28 mmHg. Transmitral diastolic flow velocities suggest diastolic dysfunction (pseudonorm al pattern). Ordering Physician: Miriam Perez/Freddie Cantrell Referring Physician: Conor Contreras Performed By: Billie Chandler RDCS
== END ==
PROVIDERS: PCP Internal Medicine; Referring Provider Physician Assistant Medical; Visit Provider Physician Assistant Medical
DX: I25.10 Atherosclerotic heart disease of native coronary artery without angina pectoris (principal); Z95.3 Presence of xenogenic heart valve; Z98.890 Other specified postprocedural states
CPT/HCPCS: 93306

== ENCOUNTER → 2020-11-25 09:29 | Outpatient (CLI) | payer SELFPAY ==
[2020-11-25 08:26] VITALS: BMI 32.4
--- NOTE | 2020-11-25 09:41 | RAD_ITS ---
STUDY: X-RAY - LEFT SHOULDER REASON FOR EXAM: Female, 69 years old. Left shoulder pain with reduced range of motion. TECHNIQUE: 4 view(s) of the shoulder. COMPARISON: None. FINDINGS: Generalized osteopenia. Mild arthrosis of the glenohumeral joint. Mild arthrosis of the AC joint. Normal acromion. Sclerosis and cystic change of the greater tuberosity humeral head. Calcific tendinitis. Normal visualized pulmonary apex. RAD/Shoulder min 2 Views IMPRESSION: Osteopenia with osteoarthritic changes as described. Calcific tendinitis. No acute abnormality, erosions or periostitis. Electronically Signed: Gary Palm MD at 12:56 EDT , Service support ,
== END ==
PROVIDERS: PCP Internal Medicine; Referring Provider Internal Medicine; Visit Provider Internal Medicine
DX: M25.512 Pain in left shoulder (principal)
CPT/HCPCS: 73030

== ENCOUNTER → 2021-01-22 10:14 | Outpatient (CLI) | payer OTHER, SELFPAY ==
[2021-01-22 12:17] LABS: AST(SGOT) 22 U/L (15-37); Alanine Aminotransfer ALT/SGPT 32 U/L (16-61); Alkaline Phosphatase 70 U/L (45-117); Bilirubin, Direct 0.17 mg/dL (0.00-0.30); Cholesterol 152 mg/dL (200); High Density Lipoprotein 54 mg/dL; Triglycerides 142 mg/dL; Very Low Density Lipoprotein 28 mg/dL (5-40)
== END ==
PROVIDERS: PCP Internal Medicine; Referring Provider Physician Assistant Medical; Visit Provider Physician Assistant Medical
DX: E78.2 Mixed hyperlipidemia (principal)
CPT/HCPCS: 36415; 80061; 80076

== ENCOUNTER → 2021-03-05 11:31 | Outpatient (CLI) | payer OTHER, SELFPAY ==
[2021-03-05 15:14] LABS: Absolute Lymphocyte Count 1.65 X10^3/uL (0.83-4.51); Basophil# 0.02 X10^3/uL; Basophil% 0.4 % (0-1); Eosinophil# 0.44 X10^3/uL; Eosinophils% 7.7 % (0-5); Hematocrit 42.7 % (40-54); Hemoglobin 13.9 g/dL (13.0-16.5); Lymphocyte # 1.65 X10^3/ul (0.83-4.51); Mean Corp Hgb Conc 32.6 g/dL (32-36); Mean Corpuscular Hgb 29.8 pg (27.0-32.0); Mean Corpuscular Volume 91.6 fL (80-94); Mean Platelet Vol. 11.1 fl (6.2-12.0); Monocyte# 0.56 X10^3/uL; Monocyte% 9.9 % (0-10); NRBC Flagged by Analyzer 0 % (0-5); Neutrophil # 2.99 X10^3/uL (2.7-7.7); Neutrophil % 52.6 % (47-70); Platelet Count 166 K/mm3 (150-450); RBC Distribution Width CV 14.6 % (11.6-14.6); RBC Distribution Width SD 49.2 fl (35.1-43.9); Red Blood Count 4.66 M/mm3 (4.6-6.2); White Blood Count 5.7 K/mm3 (4.4-11.0)
[2021-03-05 15:28] LABS: ALB/GLOB Ratio 0.8 RATIO (0.9-2.4); AST(SGOT) 27 U/L (15-37); Alanine Aminotransfer ALT/SGPT 28 U/L (16-61); Albumin, Serum 3.6 g/dL (3.2-5.0); Alkaline Phosphatase 63 U/L (45-117); Anion Gap 7 (5-15); BUN 20 mg/dL (7-18); BUN/Creat Ratio 17.5 RATIO (10-20); Calcium,Total 9.3 mg/dL (8.5-10.1); Chloride 102 mmol/L (98-107); Creatinine, Serum 1.14 mg/dL (0.70-1.30); EST Glomerular Filtration Rate 66 mL/min (>60); Est Glom Filt Rate - Afr Amer 80 mL/min (>60); Globulin 4.3 g/dL (2.2-4.2); Glucose 107 mg/dL (74-106); Potassium 4.6 mmol/L (3.5-5.1); Protein, Total 7.9 g/dL (6.4-8.2); Sodium Level 138 mmol/L (136-145)
== END ==
PROVIDERS: PCP Internal Medicine; Visit Provider Internal Medicine
DX: R10.9 Unspecified abdominal pain (principal)
CPT/HCPCS: 36415; 80053; 85025

== ENCOUNTER → 2021-03-14 07:22 | Outpatient (CLI) | payer SELFPAY, OTHER ==
--- NOTE | 2021-03-14 07:29 | CT_ITS ---
INDICATION: Abdominal pain EXAMINATION: CT ABDOMEN AND PELVIS WITH CONTRAST - CT Abdomen And Pelvis W/ Contrast Injection TECHNIQUE: Helically acquired images were obtained of the abdomen and pelvis following IV contrast. A radiation dose optimization technique was used for this scan. IV Contrast dosage and agent: 100 mL of ISOVUE 300 Oral contrast: None. COMPARISON: None. FINDINGS: LOWER CHEST: Mild prominence of the bronchovascular and interstitial lung markings is visualized, mild scarring visualized in bilateral lung latif with subtle bronchiectatic changes. Tortuosity of the lower thoracic aorta above the diaphragm. LIVER: Homogeneous. No focal mass. GALLBLADDER AND BILIARY TREE: No calcified gallstones. No gallbladder distension or wall edema. No intra- or extrahepatic biliary ductal dilation. PANCREAS: No focal cystic or solid mass. SPLEEN: Normal size without focal cystic or solid mass. ADRENAL GLANDS: No nodules. KIDNEYS AND URETERS: Normal renal size and position. Bilateral parapelvic cysts and mild prominence of the pelvicalyceal systems is visualized bilaterally, no evidence of obstructive stone or mass is seen. Mild hydronephrosis and hydroureter is seen. PERITONEUM: No ascites or free air. No other fluid collection. BOWEL: Subtle low attenuation visualized in the wall of the cecum inferior to the ileocecal junction, this could be artifactual due to overlying stool however would recommend follow-up evaluation. Scattered diverticular disease but no evidence of acute diverticulitis. Abundance of stool visualized in the large bowel. The small bowel loops are unremarkable. The appendix is visualized and is unremarkable. LYMPH NODES: Subtle scattered peritoneal lymph nodes are seen. VESSELS: Aorta is non-dilated. URINARY BLADDER: Unremarkable. REPRODUCTIVE ORGANS: The prostate gland is enlarged in size and demonstrates multiple coarse calcifications. ABDOMINAL WALL: No discrete abdominal wall hernia. Left inguinal hernia visualized. Bilateral inguinal lymphadenopathy seen. Lymph nodes visualized along the iliac chains most prominent on axial series 2 image 105 measuring 1.5 cm on the right and 1.8 cm on the left.. BONES: Extensive degenerative bone changes are visualized most prominent at L5-S1. CT/Abdomen/Pelvis WITH Contrast IMPRESSION: Mild bilateral hydroureter nephrosis and hydroureter with parapelvic cysts seen. Enlarged prostate gland with multiple coarse calcifications. Bilateral inguinal lymphadenopathy seen. Subtle scattered peritoneal lymphadenopathy seen. Left inguinal hernia. Electronically Signed: Mitchell Joshua MD at 11:44 EDT Tel , Service support ,
== END ==
PROVIDERS: PCP Internal Medicine; Visit Provider Internal Medicine
DX: K40.90 Unilateral inguinal hernia, without obstruction or gangrene, not specified as recurrent (principal); N40.0 Benign prostatic hyperplasia without lower urinary tract symptoms; R59.0 Localized enlarged lymph nodes
CPT/HCPCS: 74177; Q9967

== ENCOUNTER → 2021-04-04 09:42 | Outpatient (CLI) | payer OTHER, SELFPAY ==
[2021-04-04 12:29] LABS: PSA,Total - Annual Screen 0.32 ng/mL (0.00-4.00)
== END ==
PROVIDERS: PCP Internal Medicine; Referring Provider Internal Medicine; Visit Provider Internal Medicine
DX: N40.0 Benign prostatic hyperplasia without lower urinary tract symptoms (principal)
CPT/HCPCS: 36415; 84153; G0103

== ENCOUNTER → 2021-05-15 10:27 | Outpatient (CLI) | payer OTHER, SELFPAY ==
[2021-05-15 12:11] LABS: PSA,Total- Diagnostic 0.33 ng/mL (0.0-4.0)
== END ==
PROVIDERS: PCP Internal Medicine; Referring Provider Urology; Visit Provider Urology
DX: N40.1 Benign prostatic hyperplasia with lower urinary tract symptoms (principal)
CPT/HCPCS: 36415; 84153

== ENCOUNTER 2021-07-23 10:14 | Outpatient (CLI) | payer SELFPAY ==
[2021-07-23 12:35] LABS: Absolute Lymphocyte Count 1.93 X10^3/uL (0.83-4.51); Absolute Neutrophil Count 2.9 X10^3/uL (2.0-7.7); Basophil# 0.02 X10^3/uL; Basophil% 0.3 % (0-1); Eosinophil# 0.34 X10^3/uL; Eosinophils% 5.8 % (0-5); Hematocrit 42.3 % (40-54); Hemoglobin 13.8 g/dL (13.0-16.5); Lymphocyte # 1.93 X10^3/ul (0.83-4.51); Lymphocyte % 32.8 % (19-41); Mean Corp Hgb Conc 32.6 g/dL (32-36); Mean Corpuscular Hgb 28.9 pg (27.0-32.0); Mean Corpuscular Volume 88.7 fL (80-94); Mean Platelet Vol. 10.5 fl (6.2-12.0); Monocyte# 0.68 X10^3/uL; Monocyte% 11.6 % (0-10); NRBC Flagged by Analyzer 0 % (0-5); Neutrophil # 2.89 X10^3/uL (2.7-7.7); Neutrophil % 49.2 % (47-70); Platelet Count 187 K/mm3 (150-450); RBC Distribution Width CV 14.1 % (11.6-14.6); RBC Distribution Width SD 45.3 fl (35.1-43.9); Red Blood Count 4.77 M/mm3 (4.6-6.2); White Blood Count 5.9 K/mm3 (4.4-11.0)
[2021-07-23 12:53] LABS: Anion Gap 5 (5-15); BUN 28 mg/dL (7-18); Calcium,Total 9.1 mg/dL (8.5-10.1); Chloride 100 mmol/L (98-107); EST Glomerular Filtration Rate 52 mL/min (>60); Est Glom Filt Rate - Afr Amer 63 mL/min (>60); Glucose 111 mg/dL (74-106); Potassium 4.6 mmol/L (3.5-5.1); Sodium Level 133 mmol/L (136-145)
[2021-07-23 12:59] LABS: AST(SGOT) 32 U/L (15-37); Alanine Aminotransfer ALT/SGPT 29 U/L (16-61); Albumin, Serum 3.5 g/dL (3.2-5.0); Alkaline Phosphatase 83 U/L (45-117); Bilirubin, Direct 0.15 mg/dL (0.00-0.30); Cholesterol 221 mg/dL (200); Globulin 4.6 g/dL (2.2-4.2); High Density Lipoprotein 34 mg/dL; Protein, Total 8.1 g/dL (6.4-8.2); Triglycerides 283 mg/dL; Very Low Density Lipoprotein 57 mg/dL (5-40)
== END 2021-07-23 23:59 | disposition home or self-care (01) ==
LOC: BIMLAB 10:14
PROVIDERS: Physician Assistant Medical; PCP Internal Medicine; Referring Provider Internal Medicine; Visit Provider Internal Medicine
DX: I10 Essential (primary) hypertension (principal); E78.00 Pure hypercholesterolemia, unspecified; E78.2 Mixed hyperlipidemia
CPT/HCPCS: 36415; 80048; 80061; 80076; 85025

== ENCOUNTER → 2021-11-28 | Outpatient (CLI) | payer OTHER, SELFPAY ==
[2021-11-28 09:57] LABS: AST(SGOT) 34 U/L (15-37); Alanine Aminotransfer ALT/SGPT 33 U/L (16-61); Albumin, Serum 3.7 g/dL (3.2-5.0); Alkaline Phosphatase 70 U/L (45-117); Bilirubin, Direct 0.15 mg/dL (0.00-0.30); Cholesterol 148 mg/dL (200); Globulin 4.1 g/dL (2.2-4.2); High Density Lipoprotein 46 mg/dL; Protein, Total 7.8 g/dL (6.4-8.2); Triglycerides 175 mg/dL; Very Low Density Lipoprotein 35 mg/dL (5-40)
== END | disposition home or self-care (01) ==
PROVIDERS: PCP Internal Medicine; Referring Provider Internal Medicine Cardiovascular Disease; Visit Provider Internal Medicine Cardiovascular Disease
DX: E78.00 Pure hypercholesterolemia, unspecified (principal)
CPT/HCPCS: 36415; 80061; 80076

== ENCOUNTER → 2022-01-16 | Outpatient (CLI) | payer OTHER, SELFPAY ==
[2022-01-16 12:54] LABS: Anion Gap 6 (5-15); BUN 22 mg/dL (7-18); Calcium,Total 9.3 mg/dL (8.5-10.1); Chloride 104 mmol/L (98-107); Creatinine, Serum 1.16 mg/dL (0.70-1.30); EST Glomerular Filtration Rate 65 mL/min (>60); Est Glom Filt Rate - Afr Amer 78 mL/min (>60); Glucose 119 mg/dL (74-106); PSA,Total- Diagnostic 0.24 ng/mL (0.0-4.0); Potassium 4.4 mmol/L (3.5-5.1); Sodium Level 137 mmol/L (136-145)
== END | disposition home or self-care (01) ==
LOC: BIMLAB 08:31
PROVIDERS: PCP Internal Medicine; Referring Provider Internal Medicine; Visit Provider Internal Medicine
DX: I10 Essential (primary) hypertension (principal); N40.1 Benign prostatic hyperplasia with lower urinary tract symptoms
CPT/HCPCS: 36415; 80048; 84153

== ENCOUNTER → 2022-07-31 | Outpatient (CLI) | payer OTHER, SELFPAY ==
[2022-07-31 15:41] LABS: Absolute Neutrophil Count 4.5 X10^3/uL (2.0-7.7); Basophil# 0.02 X10^3/uL; Basophil% 0.3 % (0-1); Eosinophil# 0.54 X10^3/uL; Eosinophils% 7.4 % (0-5); Hematocrit 43.2 % (40-54); Hemoglobin 13.8 g/dL (13.0-16.5); Mean Corp Hgb Conc 31.9 g/dL (32-36); Mean Corpuscular Hgb 29.2 pg (27.0-32.0); Mean Corpuscular Volume 91.3 fL (80-94); Mean Platelet Vol. 10.9 fl (6.2-12.0); Monocyte# 0.61 X10^3/uL; Monocyte% 8.4 % (0-10); NRBC Flagged by Analyzer 0 % (0-5); Neutrophil % 61.8 % (47-70); Platelet Count 164 K/mm3 (150-450); RBC Distribution Width SD 47.5 fl (35.1-43.9); Red Blood Count 4.73 M/mm3 (4.6-6.2); White Blood Count 7.3 K/mm3 (4.4-11.0)
[2022-07-31 15:50] LABS: ALB/GLOB Ratio 0.9 RATIO (0.9-2.4); AST(SGOT) 27 U/L (15-37); Alanine Aminotransfer ALT/SGPT 26 U/L (16-61); Albumin, Serum 3.6 g/dL (3.2-5.0); Alkaline Phosphatase 64 U/L (45-117); Anion Gap 6 (5-15); BUN 25 mg/dL (7-18); BUN/Creat Ratio 21.6 RATIO (10-20); Calcium,Total 9.2 mg/dL (8.5-10.1); Chloride 105 mmol/L (98-107); Creatinine, Serum 1.16 mg/dL (0.70-1.30); EST Glomerular Filtration Rate 65 mL/min (>60); Est Glom Filt Rate - Afr Amer 78 mL/min (>60); Glucose 107 mg/dL (74-106); Potassium 4.4 mmol/L (3.5-5.1); Protein, Total 7.6 g/dL (6.4-8.2); Sodium Level 139 mmol/L (136-145)
== END | disposition home or self-care (01) ==
PROVIDERS: PCP Internal Medicine; Referring Provider Internal Medicine; Visit Provider Internal Medicine
DX: K21.9 Gastro-esophageal reflux disease without esophagitis (principal)
CPT/HCPCS: 36415; 80053; 85025

== ENCOUNTER → 2022-10-02 | Outpatient (CLI) | payer OTHER, SELFPAY ==
[2022-10-02 10:46] LABS: AST(SGOT) 35 U/L (15-37); Alanine Aminotransfer ALT/SGPT 33 U/L (16-61); Albumin, Serum 3.7 g/dL (3.2-5.0); Alkaline Phosphatase 84 U/L (45-117); Cholesterol 149 mg/dL (200); Globulin 4.4 g/dL (2.2-4.2); High Density Lipoprotein 47 mg/dL; Protein, Total 8.1 g/dL (6.4-8.2); Triglycerides 159 mg/dL; Very Low Density Lipoprotein 32 mg/dL (5-40)
== END | disposition home or self-care (01) ==
LOC: LAB 09:38
PROVIDERS: PCP Internal Medicine; Referring Provider Nurse Practitioner Family; Visit Provider Nurse Practitioner Family
DX: E78.2 Mixed hyperlipidemia (principal); Z95.3 Presence of xenogenic heart valve
CPT/HCPCS: 36415; 80061; 80076

== ENCOUNTER → 2022-10-09 | Outpatient (CLI) | payer SELFPAY, OTHER ==
--- NOTE | 2022-10-09 08:05 | CDU_ITS ---
Reason For Study: Abnormal life line screening Rt. Velocities/BP Lt. Velocities/BP Prox CCA 60.7/12.6 cm/sec. Prox CCA 60.5/15.1 cm/sec. Mid CCA 52.2/12.6 cm/sec. Mid CCA 64.2/21.2 cm/sec. Dist CCA 61.7/14.5 cm/sec. Dist CCA 61.8/15.1 cm/sec. Prox ICA 47.5/16.3 cm/sec. Prox ICA 55.6/16.3 cm/sec. Mid ICA 107.2/36 cm/sec. Mid ICA 82.6/24.9 cm/sec. Dist ICA 64.5/19.5 cm/sec. Dist ICA 75.8/25.1 cm/sec. Rt. ICA/CCA = 1.77. Lt. ICA/CCA = 1.34. Prox ECA 79.6/10.7 cm/sec. Prox ECA 101.1/7.7 cm/sec. Rt. Vert. 65.4/17.6 cm/sec. Lt. Vert. 53.2/14.5 cm/sec. Right Extracranial There is intimal thickening but no significant atherosclerotic plaque noted in the right common carotid artery. There is heterogeneous, irregular atherosclerotic plaque noted in the right internal carotid artery. There is intimal thickening but no significant atherosclerotic plaque noted in the right external carotid artery. Antegrade flow is noted in the right vertebral artery. Left Extracranial There is intimal thickening but no significant atherosclerotic plaque noted in the left common carotid artery. There is heterogeneous, smooth atherosclerotic plaque noted in the left internal carotid artery. There is heterogeneous, irregular atherosclerotic plaque noted in the left external carotid artery. Antegrade flow is noted in the left vertebral artery. Procedure Carotid Duplex [id number]. This is a Carotid Duplex examination using B-mode, color flow and specral Doppler. Exam performed in department. VL/Carotid Duplex Ultrasound Interpretation Summary Mild (<50%) stenosis right extracranial internal carotid. Mild (<50%) stenosis left extracranial internal carotid. Patent and antegrade vertebrals bilaterally. Ordering Physician: David Roman Referring Physician: Guillaume Javed Performed By: Leesa Calderón RVT
== END | disposition home or self-care (01) ==
PROVIDERS: PCP Internal Medicine; Referring Provider Nurse Practitioner Family; Visit Provider Nurse Practitioner Family
DX: I65.22 Occlusion and stenosis of left carotid artery (principal); R68.89 Other general symptoms and signs
CPT/HCPCS: 93880

== ENCOUNTER → 2023-02-12 | Outpatient (CLI) | payer OTHER, SELFPAY ==
--- NOTE | 2023-02-12 14:19 | RAD_ITS ---
EXAM: XR LUMBOSACRAL SPINE, 4 OR 5 VIEWS CLINICAL INDICATION: Low Back Pain TECHNIQUE: Frontal, lateral and bilateral oblique views of the lumbar spine. COMPARISON: CT abdomen and pelvis, 03/14/2021 FINDINGS: VERTEBRAE: Multilevel endplate osteophytosis and facet arthrosis. Preservation of the normal lumbar lordosis. No discrete evidence of spondylolysis or spondylolisthesis. No acute fracture is identified. SACRUM/COCCYX: Symmetric arthrosis of the bilateral SI joints. DISC SPACES: Multilevel intervertebral disc height loss. VASCULATURE: Vascular calcifications. GASTROINTESTINAL TRACT: Normal as visualized. Included bowel gas pattern is non-obstructive. RAD/L/S Spine Min 4 Views IMPRESSION: Degenerative changes. No acute osseous findings. Electronically Signed: Raúl Keen DO at 21:00 EDT ,
--- NOTE | 2023-02-12 14:20 | RAD_ITS ---
EXAM: XR BILATERAL HIPS WITH PELVIS WHEN PERFORMED, 2 VIEWS CLINICAL INDICATION: Bilateral Hip pain TECHNIQUE: Frontal view of the bilateral hips with pelvis when performed. COMPARISON: Lumbar spine on the same date. CT abdomen and pelvis, 03/14/2021. FINDINGS: BONES/JOINTS: Degenerative changes in the lower lumbar spine and at the bilateral SI joints. Acetabular hypertrophy and sclerosis. Mild superior hip joint space narrowing, left greater than right. No displaced fracture. No widening of the pubic symphysis. SOFT TISSUES: No significant abnormality. No soft tissue swelling or gas. VASCULATURE: Vascular calcifications. RAD/Hips B/L min 2 views w/ Pelvis IMPRESSION: Degenerative changes. No acute osseous findings. Electronically Signed: Raúl Keen DO at 21:09 EDT ,
== END | disposition home or self-care (01) ==
PROVIDERS: PCP Internal Medicine; Referring Provider Internal Medicine; Visit Provider Internal Medicine
DX: M25.551 Pain in right hip (principal); M25.552 Pain in left hip; M54.50 Low back pain, unspecified
CPT/HCPCS: 72110; 73521

== ENCOUNTER → 2023-06-18 | Outpatient (CLI) | payer OTHER, SELFPAY ==
--- OUTSIDE RECORDS SUMMARY | 2023-06-18 09:26 | XMS RPT_ITS | CCD ---
Author Name Unknown Address [address] [place] [address] Organization [facility] Care Team Providers Care Morning Caregiver Name Role Phone LEOLA KINSEY MD Referring Unavailable LEOLA KINSEY MD Consulting Unavailable ABEL HERNANDES MD Admitting Unavailable ABEL HERNANDES MD Attending Unavailable ABEL HERNANDES MD Primary Care Unavailable PROVIDER, UNKNOWN Consulting Unavailable AMELIE MO, DR LEOLA Mooney Primary Care Physician Allergies Allergy Classification Reported Allergen(s) Allergy Type Date of Onset Reaction(s) Facility (1 source) Adhesive Tape Drug allergy (disorder) [facility] Repository (1 source) Penicillin Drug Allergy [facility] Repository (1 source) Penicillin; Translations: [penicillins] Drug Allergy Muscle pain (finding) [facility] Medications Current Medications Medication Drug Class(es) Dates Sig (Normalized) Sig (Original) bee propolis (1 source) Start: 9 bee propolis bee propolis, 2 cap, BID, 0 Refill(s) Start Date: 08/15/18 Status: Ordered calcium carbonate 1500 mg / cholecalciferol 200 unt oral tablet (1 source) Vitamin D Start: 9 take 1 tablet by mouth twice daily calcium (as carbonate)-vitamin D 600 mg-200 intl units oral tablet Dose = 2 tab(s), Oral, BID, # 270 tab(s), 0 Refill(s) Start Date: 08/05/18 Status: Ordered latif of green (1 source) Start: 9 latif of green ltaif of green, 1 cap, BID, 0 Refill(s) Start Date: 08/15/18 Status: Ordered forever active MONIQUE (1 source) Start: 9 forever active MONIQUE forever active MONIQUE, 2 cap(s), BID, hyaloronic acid, wolfgang, turmeric, 0 Refill(s) Start Date: 08/15/18 Status: Ordered Garlic preparation (1 source) Non-Standardized Food Allergenic Extract Start: 9 take 1 capsule by mouth twice daily garlic oral capsule Dose = 3 cap(s), Oral, BID, 0 Refill(s) Start Date: 08/05/18 Status: Ordered inflammatone (1 source) Start: 9 inflammatone inflammatone, 2 tab(s), BID, 0 Refill(s) Start Date: 08/15/18 Status: Ordered krill oil 500 mg oral capsule (1 source) Start: 5 omega-3 polyunsaturated fatty acids 500 mg oral capsule Dose : 1,000 mg = 2 cap(s), Oral, BID, 0 Refill(s) Start Date: 09/21/14 Status: Ordered magnesium oxide 250 mg oral tablet (1 source) Start: 9 Magnesium 250 mg tablet Dose : 250 mg = 1 tab(s), Oral, BID, 0 Refill(s) Start Date: 08/15/18 Status: Ordered pantoprazole 40 mg delayed release oral tablet (1 source) Proton Pump Inhibitor Start: 5 Protonix 40 mg oral enteric coated tablet Dose : 40 mg = 1 tab(s), Oral, qAM, 0 Refill(s) Start Date: 09/21/14 Status: Ordered tadalafil 20 mg oral tablet (1 source) Phosphodiesterase 5 Inhibitor Start: 9 Cialis 20 mg oral tablet (NF) Dose : 20 mg = 1 tab(s), Oral, qDay, PRN as needed for erectile dysfunction, 0 Refill(s) Start Date: 08/05/18 Status: Ordered tamsulosin hydrochloride 0.4 mg oral capsule (1 source) alpha-Adrenergic Janeth Start: 9 tamsulosin 0.4 mg oral capsule Dose : 0.4 mg = 1 cap(s), Oral, qHS, # 30 cap(s), 0 Refill(s) Start Date: 08/05/18 Status: Ordered turmeric extract 500 mg oral capsule (1 source) Start: 9 take 1 tablet by mouth twice daily turmeric 500 mg oral capsule 1 tab, BID, 0 Refill(s) Start Date: 08/15/18 Status: Ordered warfarin sodium 5 mg oral tablet (1 source) Vitamin K Antagonist Start: 5 warfarin 5 mg oral tablet Dose : 10 mg = 2 tab(s), Oral, qHS, 0 Refill(s) Start Date: 09/21/14 Status: Ordered Problems Problem Classification Problem Date Documented Da te Episodic/Chronic Esophageal disorders (2 sources) Gastro-esophageal reflux disease without esophagitis; Translations: [Acid reflux] Onset: 11-23-2019 09-21-2014 Chronic Fever of unknown origin (2 sources) Fever, unspecified; Translations: [Fever, unspecified] Onset: 11-23-2019 Episodic Fluid and electrolyte disorders (1 source) Hypo-osmolality and hyponatremia; Translations: [Hypo-osmolality and hyponatremia] Onset: 11-23-2019 Episodic Hyperplasia of prostate (1 source) Benign prostatic hyperplasia without lower urinary tract symptoms; Translations: [Benign prostatic hyperplasia without lower urinary tract symptoms] Onset: 11-23-2019 Chronic Other aftercare (1 source) terminal makeup operator (current) use of anticoagulants; Translations: [alf (current) use of anticoagulants] Onset: 11-23-2019 Episodic Other aftercare (1 source) Long-term current use of anticoagulant; Translations: [alf (current) use of anticoagulants] Episodic Other aftercare (1 source) Drug monitoring done; Translations: [Encounter for therapeutic drug level monitoring] Episodic Other diseases of veins and lymphatics (1 source) Peripheral venous insufficiency 06-24-2015 Episodic Other lower respiratory disease (1 source) Hypoxemia; Translations: [Hypoxemia] Onset: 11-23-2019 Episodic Other nervous system disorders (1 source) 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 Peripheral and visceral atherosclerosis (1 source) Peripheral vascular disease, unspecified; Translations: [Peripheral vascular disease, unspecified] Onset: 11-23-2019 Chronic Phlebitis; thrombophlebitis and thromboembolism (3 sources) Personal history of other venous thrombosis and embolism; Translations: [History of thromboembolism of vein] Onset: 11-23-2019 Episodic Results Test Name Value Interpretation Reference Range Facil ity Encounters Encounter Date Encounter Type Care Provider Facility Start: 11-22-2020 End: 11-05-2021 Lab-Standing Order [facility] Start: 11-23-2019 End: 11-27-2019 Evaluation and management of inpatient LEOLA MO [facility] Procedures Date Procedure Procedure Detail Performing Clinician Start: 11-23-2019 Urinalysis LEOLA WILL IAMS Payers Date Payer Category Payer Unknown [id number] Unknown [id number] Social History Date Type Detail Facility Start: 08-05-2018 Tobacco smoking status Ex-smoker (fi nding) [facility] Evaluation + Plan note Note Date & Type Note Facility Evaluation + Plan note No data available for this section [facility] Hospital Discharge instructions Note Date & Type Note Facility Hospital Discharge instructions No data available for this section [facility] Progress note Note Date & Type Note Facility Progress note No data available for this section [facility] Summary Purpose Family History No Family History Records FoundNo Family History Records FoundNo Family History Records FoundNo Family History Records FoundNo Family History Records Found Advance Directives No Advanced Directives Records FoundNo Advanced Directives Records FoundNo Advanced Directives Records FoundNo Advanced Directives Records FoundNo Advanced Directives Records Found Hospital Course Note [facility] DISCHARGE SUMMARY NAME ACCOUNT SEX AGE ADMIT DISCHARGE PT MED. RECORD# NUMBER DATE DATE TYPE MANGO CASE [id number] M 74 11/23/19 11/27/19 1 [id number] ROOM: [facility] DATE OF : 1945 ATTENDING PHYSICIAN: Silvia Leung This is a shared split visit with Dr. Hernandes, who also rounded on and examined the patient today. FINAL DIAGNOSES: 1. COVID-19. 2. Pneumonia. 3. Hypoxia, resolved. DIAGNOSTIC DATA: Laboratory data: The patient was positive for coronavirus. INR on admission was 1.4. Today, on the day of discharge, is 2.9. Kidney function stayed stable. On discharge, his BUN is 14, creatinine 0.8, sodium 132. Urinalysis is unremarkable. Legionella is negative. Urine culture with no growth. Mycoplasma pneumonia is still pending. Blood cultures x2 are still pending, but are negative at 72 hours. Chest x-ray revealed a right upper lobe infiltrate and left lower lobe infiltrate. HOSPITAL COURSE: This is a 74-year-old normally healthy, active Sikh gentleman who presented to the (more content not included)... Additional Source Comments (unrecognized sect ion and content) No Status Records FoundNo Status Records FoundNo Status Records FoundNo Status Records FoundNo Status Records Found INFORMATION SOURCE (unrecogn ized section and content) DATE CREATED AUTHOR AUTHOR'S ORGANIZ ATION 12/28/2019 [facility] DATE CREATED AUTHOR AUTHOR'S ORGANIZ ATION 08/14/2020 [facility] DATE CREATED AUTHOR AUTHOR'S ORGANIZ ATION 11/23/2020 [facility] DATE CREATED AUTHOR AUTHOR'S ORGANIZ ATION 07/30/2021 [facility] Care Team (unrecognized sect ion and content) Personnel Name: LEOLA KINSEY MD Address: [address] [place] [address], [address] FOR RECORDS PERTAINING TO PATIENTS WHO ARE OR HAVE BEEN ENROLLED IN A CHEMICAL DEPENDENCY/SUBSTANCEABUSE PROGRAM, SOME INFORMATION MAY BE OMITTED. This clinical summary was aggregated from multiple sources. Caution should be exercised in using it in the provision of clinical care. This summary normalizes information from multiple sources, and as a consequence, information in this document may materially change the coding, format and clinical context of patient data. In addition, data may be omitted in some cases. CLINICAL DECISIONS SHOULD BE BASED ON THE PRIMARY CLINICAL RECORDS. [facility] [employer] [facility]. provides no warranty or guarantee of the accuracy or completeness of information in this document.
[2023-06-18 12:10] LABS: Absolute Lymphocyte Count 1.59 X10^3/uL (0.83-4.51); Absolute Neutrophil Count 3.9 X10^3/uL (2.0-7.7); Basophil# 0.03 X10^3/uL; Basophil% 0.4 % (0-1); Eosinophil# 0.64 X10^3/uL; Eosinophils% 9.5 % (0-5); Hematocrit 44.7 % (40-54); Hemoglobin 14.2 g/dL (13.0-16.5); Lymphocyte # 1.59 X10^3/ul (0.83-4.51); Lymphocyte % 23.6 % (19-41); Mean Corp Hgb Conc 31.8 g/dL (32-36); Mean Corpuscular Volume 94.3 fL (80-94); Mean Platelet Vol. 11.4 fl (6.2-12.0); Monocyte# 0.61 X10^3/uL; Monocyte% 9.1 % (0-10); NRBC Flagged by Analyzer 0 % (0-5); Neutrophil # 3.86 X10^3/uL (2.7-7.7); Neutrophil % 57.3 % (47-70); Platelet Count 168 K/mm3 (150-450); RBC Distribution Width CV 13.6 % (11.6-14.6); RBC Distribution Width SD 46.8 fl (35.1-43.9); Red Blood Count 4.74 M/mm3 (4.6-6.2); White Blood Count 6.7 K/mm3 (4.4-11.0)
[2023-06-18 12:32] LABS: Anion Gap 5 (5-15); BUN 28 mg/dL (7-18); BUN/Creat Ratio 23.9 RATIO (10-20); Calcium,Total 9.7 mg/dL (8.5-10.1); Chloride 105 mmol/L (98-107); Creatinine, Serum 1.17 mg/dL (0.70-1.30); EST Glomerular Filtration Rate 64 mL/min (>60); Est Glom Filt Rate - Afr Amer 77 mL/min (>60); Glucose 115 mg/dL (74-106); PSA,Total - Annual Screen 0.31 ng/mL (0.00-4.00); Potassium 4.5 mmol/L (3.5-5.1); Sodium Level 141 mmol/L (136-145)
[2023-06-18 12:38] LABS: AST(SGOT) 28 U/L (15-37); Alanine Aminotransfer ALT/SGPT 27 U/L (16-61); Albumin, Serum 3.7 g/dL (3.2-5.0); Alkaline Phosphatase 70 U/L (45-117); Bilirubin, Direct 0.15 mg/dL (0.00-0.30); Cholesterol 130 mg/dL (200); Globulin 3.9 g/dL (2.2-4.2); High Density Lipoprotein 45 mg/dL; Protein, Total 7.6 g/dL (6.4-8.2); Triglycerides 156 mg/dL; Very Low Density Lipoprotein 31 mg/dL (5-40)
== END | disposition home or self-care (01) ==
LOC: BIMLAB 09:04
PROVIDERS: Nurse Practitioner Family; PCP Internal Medicine; Referring Provider Internal Medicine; Visit Provider Internal Medicine
DX: I10 Essential (primary) hypertension (principal); E78.2 Mixed hyperlipidemia; Z12.5 Encounter for screening for malignant neoplasm of prostate
CPT/HCPCS: 36415; 80048; 80061; 80076; 84153; 85025; G0103

== ENCOUNTER → 2023-12-14 | Outpatient (CLI) | payer OTHER, SELFPAY ==
[2023-12-14 11:08] LABS: Absolute Lymphocyte Count 1.84 X10^3/uL (0.83-4.51); Absolute Neutrophil Count 4.4 X10^3/uL (2.0-7.7); Basophil# 0.02 X10^3/uL; Basophil% 0.3 % (0-1); Eosinophil# 0.33 X10^3/uL; Eosinophils% 4.6 % (0-5); Hemoglobin 13.8 g/dL (13.0-16.5); Lymphocyte # 1.84 X10^3/ul (0.83-4.51); Lymphocyte % 25.4 % (19-41); Mean Corp Hgb Conc 32.1 g/dL (32-36); Mean Corpuscular Hgb 29.5 pg (27.0-32.0); Mean Corpuscular Volume 91.9 fL (80-94); Monocyte# 0.63 X10^3/uL; Monocyte% 8.7 % (0-10); NRBC Flagged by Analyzer 0 % (0-5); Neutrophil # 4.41 X10^3/uL (2.7-7.7); Neutrophil % 60.7 % (47-70); Platelet Count 183 K/mm3 (150-450); RBC Distribution Width CV 14.1 % (11.6-14.6); RBC Distribution Width SD 47.8 fl (35.1-43.9); Red Blood Count 4.68 M/mm3 (4.6-6.2); White Blood Count 7.3 K/mm3 (4.4-11.0)
[2023-12-14 11:29] LABS: Anion Gap 6 (5-15); BUN 30 mg/dL (7-18); Chloride 105 mmol/L (98-107); Creatinine, Serum 1.11 mg/dL (0.70-1.30); EST Glomerular Filtration Rate 68 mL/min (>60); Est Glom Filt Rate - Afr Amer 82 mL/min (>60); Glucose 105 mg/dL (74-106); Potassium 4.2 mmol/L (3.5-5.1); Sodium Level 139 mmol/L (136-145)
[2023-12-14 11:50] LABS: AST(SGOT) 31 U/L (15-37); Alanine Aminotransfer ALT/SGPT 30 U/L (16-61); Albumin, Serum 3.5 g/dL (3.2-5.0); Alkaline Phosphatase 74 U/L (45-117); Bilirubin, Direct 0.17 mg/dL (0.00-0.30); Cholesterol 128 mg/dL (200); Globulin 3.9 g/dL (2.2-4.2); High Density Lipoprotein 45 mg/dL; Protein, Total 7.4 g/dL (6.4-8.2); Triglycerides 142 mg/dL; Very Low Density Lipoprotein 28 mg/dL (5-40)
== END | disposition home or self-care (01) ==
PROVIDERS: Nurse Practitioner Family; PCP Internal Medicine; Referring Provider Internal Medicine; Visit Provider Internal Medicine
DX: I10 Essential (primary) hypertension (principal); E78.2 Mixed hyperlipidemia
CPT/HCPCS: 36415; 80048; 80061; 80076; 85025

== ENCOUNTER → 2024-01-14 | Outpatient (CLI) | payer SELFPAY, OTHER ==
--- NOTE | 2024-01-14 07:52 | ECHOD_ITS ---
Reason For Study: VALVE REPLACEMENT Procedure This was a 2D Doppler, Color Flow transthoracic echocardiogram. Exam performed in department. Left Ventricle Normal LV size. Left ventricular systolic function is normal. The left ventricular ejection fraction is 60 %. Stage 1 diastolic dysfunction. No regional wall motion abnormalities noted. Right Ventricle Normal RV size. Normal systolic function. Atria The left atrium is mildly enlarged. The right atrium is mildly enlarged. Tricuspid Valve Normal tricuspid valve. Mild (1+) tricuspid valve insufficiency. Pulmonary artery systolic pressure is 34 mmHg. Aortic Valve Peak aortic valve gradient 35 mmHg. Mean aortic valve gradient 20 mmHg. Normal prosthetic aortic valve. Pulmonic Valve Normal pulmonic valve. Great Vessels Mild to moderately dilated aortic root. The pulmonary artery is normal size. Inferior vena cava collapse with respiration. Pericardium/Pleural No pericardial effusion. MMode/2D Measurements & Calculations LVOT diam: 2.0 cm Ao root diam: 4.1 cm LAV(MOD-bp): 78.5 ml LVOT area: 3.1 cm2 LAV(MOD-bp) Indexed: 34.4 ml/m2 LAV(MOD-sp2): 74.2 ml LAV(MOD-sp4): 75.4 ml LVAd ap4: 32.9 cm2 SV(MOD-sp4): 76.9 ml SV(sp4-el): 82.0 ml LVLd ap4: 8.1 cm EDV(MOD-sp4): 109.1 ml EDV(sp4-el): 113.1 ml LVAs ap4: 15.9 cm2 LVLs ap4: 6.9 cm ESV(MOD-sp4): 32.2 ml ESV(sp4-el): 31.1 ml EF(MOD-sp4): 70.5 % EF(sp4-el): 72.5 % LA A4 area: 24.5 cm2 LA dimension(2D): 5.4 cm RA A4 area: 23.2 cm2 Time Measurements MV dec time: 0.24 sec Doppler Measurements & Calculations MV E max bon: 91.9 cm/sec Lat Peak E' Bon: 10.6 cm/sec Med Peak E' Bon: 5.8 cm/sec MV A max bon: 104.4 cm/sec E/E' lat: 8.7 E/E' med: 15.8 MV E/A: 0.88 MV V2 max: 108.8 cm/sec Ao V2 max: 295.6 cm/sec MV max P.7 mmHg MV dec slope: 387.7 cm/sec2 Ao max P.0 mmHg MV V2 mean: 62.8 cm/sec Ao V2 mean: 212.3 cm/sec MV mean P.8 mmHg Ao mean P.6 mmHg MV V2 VTI: 45.1 cm Ao V2 VTI: 72.2 cm AV (velocity ratio): 0.50 MVA(VTI): 2.5 cm2 EVERARDO(I,D): 1.6 cm2 EVERARDO(V,D): 1.5 cm2 LV V1 max: 140.8 cm/sec SV(LVOT): 112.2 ml TR max bon: 279.0 cm/sec LV V1 max P.9 mmHg TR max P.1 mmHg LV V1 mean P.0 mmHg LV V1 mean: 106.6 cm/sec LV V1 VTI: 35.9 cm ECHO/Echo Complete Interpretation Summary Normal LV size. Left ventricular systolic function is normal. The left ventricular ejection fraction is 60 %. Stage 1 diastolic dysfunction. Pulmonary artery systolic pressure is 34 mmHg. Mean aortic valve gradient 20 mmHg. Normal prosthetic aortic valve. Ordering Physician: Naman Mckeon Referring Physician: Naman Mckeon Performed By: Terra Meyer RCS
== END | disposition home or self-care (01) ==
LOC: CVS 07:48
PROVIDERS: PCP Internal Medicine; Referring Provider Internal Medicine Cardiovascular Disease; Visit Provider Internal Medicine Cardiovascular Disease
DX: Z95.3 Presence of xenogenic heart valve (principal)
CPT/HCPCS: 93306

== ENCOUNTER → 2024-11-17 | Outpatient (CLI) | payer OTHER, SELFPAY ==
[2024-11-17 12:43] LABS: Absolute Lymphocyte Count 1.72 X10^3/uL (0.83-4.51); Absolute Neutrophil Count 5.4 X10^3/uL (2.0-7.7); Basophil# 0.02 X10^3/uL; Basophil% 0.2 % (0-1); Eosinophils% 3.7 % (0-5); Hematocrit 38.8 % (40-54); Hemoglobin 12.7 g/dL (13.0-16.5); Lymphocyte # 1.72 X10^3/ul (0.83-4.51); Lymphocyte % 21.2 % (19-41); Mean Corp Hgb Conc 32.7 g/dL (32-36); Mean Corpuscular Hgb 30.2 pg (27.0-32.0); Mean Corpuscular Volume 92.4 fL (80-94); Mean Platelet Vol. 11.4 fl (6.2-12.0); Monocyte# 0.67 X10^3/uL; Monocyte% 8.3 % (0-10); NRBC Flagged by Analyzer 0 % (0-5); Neutrophil # 5.38 X10^3/uL (2.7-7.7); Neutrophil % 66.2 % (47-70); Platelet Count 140 K/mm3 (150-450); RBC Distribution Width CV 14.5 % (11.6-14.6); RBC Distribution Width SD 48.9 fl (35.1-43.9); White Blood Count 8.1 K/mm3 (4.4-11.0)
[2024-11-17 13:42] LABS: Cholesterol 140 mg/dL (<=200); High Density Lipoprotein 46 mg/dL; Low Density Lipoprotein Calc. 75 mg/dL; Triglycerides 97 mg/dL; Very Low Density Lipoprotein 19 mg/dL (5-40); cholesterol:hdl ratio screen 3.06
[2024-11-17 14:18] LABS: PSA,Total - Annual Screen 0.24 ng/mL (0.02-4.00)
[2024-11-17 15:12] LABS: ALB/GLOB Ratio 1.5 RATIO (0.9-2.4); AST(SGOT) 34 U/L (<=37); Alanine Aminotransfer ALT/SGPT 32 U/L (<=46); Albumin, Serum 4.1 g/dL (3.4-4.8); Alkaline Phosphatase 62 U/L (40-129); Anion Gap 10 (5-15); BUN 30 mg/dL (4-19); BUN/Creat Ratio 28.6 RATIO (10-20); Bilirubin, Direct 0.24 mg/dL (0.00-0.30); Calcium,Total 9.2 mg/dL (7.6-11.0); Carbon Dioxide 26.3 mmol/L (21.0-32.0); Chloride 102 mmol/L (98-108); Creatinine, Serum 1.06 mg/dL (0.70-1.20); EST Glomerular Filtration Rate 71 (>60); Globulin 2.7 g/dL (2.2-4.2); Glucose 96 mg/dL (70-99); Potassium 4.4 mmol/L (3.3-5.1); Protein, Total 6.8 g/dL (5.9-8.4); Sodium Level 139 mmol/L (133-145); Total Bilirubin 0.56 mg/dL (0.00-1.30)
== END | disposition home or self-care (01) ==
PROVIDERS: Nurse Practitioner Family; PCP Internal Medicine; Referring Provider Internal Medicine; Visit Provider Internal Medicine
DX: I10 Essential (primary) hypertension (principal); E78.2 Mixed hyperlipidemia; N40.1 Benign prostatic hyperplasia with lower urinary tract symptoms
CPT/HCPCS: 36415; 80053; 80061; 82248; 84153; 84439; 84443; 85025; G0103

== ENCOUNTER → 2025-01-12 | Outpatient (CLI) | payer OTHER, SELFPAY ==
--- OUTSIDE RECORDS SUMMARY | 2025-01-12 06:22 | XMS RPT_ITS | CCD ---
Author Organization [facility] Care Team Providers Care Director Of Culture Name Role Phone CONOR KINSEY MD Referring Unavailable CONOR KINSEY MD Consulting Unavailable ABEL HERNANDES MD Admitting Unavailable ABEL HERNANDES MD Attending Unavailable ABEL HERNANDES MD Primary Care Unavailable PROVIDER, UNKNOWN Consulting Unavailable AMELIE MO, DR CONOR Mooney Primary Care Physician [phone] Dr. Conor Kinsey Referring Provider Dr. Freddie Cantrell Attending Provider Dr. Guillaume Javed Primary Care Provider [phone] Dr. Guillaume Javed Primary Care Provider [phone] Dr. Guillaume Javed Attending Provider [phone] Dr. Guillaume Javed Referring Provider [phone] Dr. Guillaume Javed Primary Care Provider [phone] Dr. Guillaume Javed Attending Provider [phone] Dr. Guillaume Javed Referring Provider [phone] Dr. Guillaume Javed Primary Care Provider [phone] Dr. Guillaume Javed Attending Provider [phone] Dr. Guillaume Javed Referring Provider [phone] Jessie REFERENCE SERVICES HEAD, BISHOP Bland Attending Provider [phone] Dr. Jenaro Perez Attending Provider [phone] Dr. Guillaume Javed Primary Care Provider [phone] Dr. Guillaume Javed Referring Provider [phone] [facility] REFERENCE SERVICES HEAD, REFERENCE SERVICES HEAD-C Lena Bland Attending Provider [phone] Dr. Guillaume Javed Attending Provider [phone] Tegan MO, Dr. Galaviz Primary Care Provider Tegan MO, Dr. Galaviz Attending Provider [phone] Tegan MO, Dr. Galaviz Referring Provider [phone] Shilo Higuera Attending Provider Jewel REFERENCE SERVICES HEAD-CRicky Attending Provider Anatoly REFERENCE SERVICES HEAD-CAminata Attending Provider [phone] Cate Hunter Attending Unavailable Oleghe, Efewongbe Primary Care Unavailable Mike, Naman Attending Unavailable Oleghe, Efewongbe Primary Care Unavailable Oleghe, Efewongbe Primary Care Unavailable hSilo Dockery Attending Unavailable Oleghe, Efewongbe Referring Unavailable Oleghe, Efewongbe Referring Unavailable Korey Santos Attending Unavailable Oleghe, Efewongbe Primary Care Unavailable Oleghe, Efewongbe Referring Unavailable Oleghe, Efewongbe Primary Care Unavailable Oleghe, Efewongbe Attending Unavailable Oleghe, Efewongbe Primary Care Unavailable Ricky Holloway Attending Unavailable Oleghe, Efewongbe Referring Unavailable Oleghe, Efewongbe Primary Care Unavailable Aminata Ledbetter Attending Unavailable Oleghe, Efewongbe Referring Unavailable Oleghe, Efewongbe Referring Unavailable Oleghe, Efewongbe Primary Care Unavailable Oleghe, Efewongbe Attending Unavailable Mike, Deep Water Attending Unavailable Mike, Deep Water Referring Unavailable Oleghe, Efewongbe Primary Care Unavailable Oleghe, Efewongbe Primary Care Unavailable Shilo Dockery Attending Unavailable Shilo Dockery Referring Unavailable Allergies Allergy Classification Reported Allergen(s) Allergy Type Date of Onset Reaction(s) Facility (1 source) Adhesive Tape Drug allergy (disorder) [facility] (1 source) Penicillin Drug Allergy [facility] (1 source) Penicillin; Translations: [penicillins] Drug Allergy Muscle pain (finding) [facility] (9 sources) Penicillins Propensity to adverse reactions 3 Extreme Pain [facility] (1 source) Penicillins Drug allergy (disorder) 5 [facility] Medications Current Medications Medication Drug Class(es) Dates Sig (Normalized) Sig (Original) aspirin 81 mg delayed release oral tablet (11 sources) Platelet Aggregation Inhibitor, Nonsteroidal Anti-inflammatory Drug Start: 2020 take 1 tablet by mouth once daily Aspirin 81 mg tablet,delayed release (DR/EC) Active 81 mg PO DAILY 1 2020 1:00am bee propolis (1 source) Start: 08-15-2018 bee propolis bee propolis, 2 cap, BID, 0 Refill(s) Start Date: 08/15/18 Status: Ordered calcium carbonate 1500 mg / cholecalciferol 200 unt oral tablet (1 source) Vitamin D Start: 08-05-2018 take 1 tablet by mouth twice daily calcium (as carbonate)-vitamin D 600 mg-200 intl units oral tablet Dose = 2 tab(s), Oral, BID, # 270 tab(s), 0 Refill(s) Start Date: 08/05/18 Status: Ordered cephalexin 500 mg oral capsule (2 sources) Cephalosporin Antibacterial Start: 12-28-2024 take 1 capsule by mouth every six hours Cephalexin 500 mg capsule Active 500 mg PO EVERY 6 HOURS 28 7 0 December 28, 2024 12:00am January 03, 2025 12:00am latif of green (1 source) Start: 08-15-2018 latif of green altif of green, 1 cap, BID, 0 Refill(s) Start Date: 08/15/18 Status: Ordered forever active MONIQUE (1 source) Start: 08-15-2018 forever active MONIQUE forever active MONIQUE, 2 cap(s), BID, hyaloronic acid, wolfgang, turmeric, 0 Refill(s) Start Date: 08/15/18 Status: Ordered Garlic preparation (1 source) Non-Standardized Food Allergenic Extract Start: 08-05-2018 take 1 capsule by mouth twice daily garlic oral capsule Dose = 3 cap(s), Oral, BID, 0 Refill(s) Start Date: 08/05/18 Status: Ordered inflammatone (1 source) Start: 08-15-2018 inflammatone inflammatone, 2 tab(s), BID, 0 Refill(s) Start Date: 08/15/18 Status: Ordered krill oil 500 mg oral capsule (1 source) Start: 09-21-2014 omega-3 polyunsaturated fatty acids 500 mg oral capsule Dose : 1,000 mg = 2 cap(s), Oral, BID, 0 Refill(s) Start Date: 09/21/14 Status: Ordered magnesium oxide 250 mg oral tablet (1 source) Start: 08-15-2018 Magnesium 250 mg tablet Dose : 250 mg = 1 tab(s), Oral, BID, 0 Refill(s) Start Date: 08/15/18 Status: Ordered [place]-3 Fatty Acids (Fish Oil Concentrate) 1,000 mg capsule (11 sources) Start: 2020 take 1 capsule by mouth once daily [place]-3 Fatty Acids (Fish Oil Concentrate) 1,000 mg capsule Active 1000 mg PO DAILY 2020 1:00am Start: 2020 take 1 capsule by mo uth once daily [place]-3 Fatty Acids (Fish Oil Concentrate) 1,000 mg capsule Active 1000 MG PO DAILY 2020 12:00am Start: 2020 take 1 capsule by mo [facility] once daily [place]-3 Fatty Acids (Fish Oil Concentrate) 1,000 mg capsule Active 1000 MG PO DAILY 2020 1:00am polyethylene glycol 3350 78803 mg powder for oral solution (11 sources) Osmotic Laxative Start: 07-31-2020 Polyethylene Glycol 3350 (Miralax) 17 gram powder in packet Active 17 g PO DAILY July 31, 2020 1:00am tadalafil 20 mg oral tablet (1 source) Phosphodiesterase 5 Inhibitor Start: 08-05-2018 Cialis 20 mg oral tablet (NF) Dose : 20 mg = 1 tab(s), Oral, qDay, PRN as needed for erectile dysfunction, 0 Refill(s) Start Date: 08/05/18 Status: Ordered turmeric extract 500 mg oral capsule (1 source) Start: 08-15-2018 take 1 tablet by mouth twice daily turmeric 500 mg oral capsule 1 tab, BID, 0 Refill(s) Start Date: 08/15/18 Status: Ordered Completed/Discontinued Medications Medication Drug Class(es) Dates Sig (Normalized) Sig (Original) acetaminophen 325 mg oral tablet (11 sources) Start: 07-31-2020 End: 08-22-2021 take 2 tablets by mouth every four hours as needed Acetaminophen 325 mg tablet Discontinued 650 mg PO Q4H as needed July 31, 2020 1:00am August 22, 2021 9:48am Start: 07-31-2020 End: 08-22-2021 take 650 mg by mouth every four hours Acetaminophen Discontinued 650 MG PO Q4H July 31, 2020 12:00am August 22, 2021 8:48am apixaban 5 mg oral tablet (20 sources) Factor Xa Inhibitor Start: 10-31-2020 End: 04-28-2024 take 1 tablet by mouth twice daily Apixaban (Eliquis) 5 mg tablet Discontinued 5 mg PO TWICE A DAY 180 4 May 27, 2023 5:09pm April 28, 2024 11:27am atorvastatin 20 mg oral tablet (20 sources) HMG-CoA Reductase Inhibitor Start: 09-08-2022 End: 09-19-2024 take 1 tablet by mouth at bedtime Atorvastatin 20 mg tablet Discontinued 20 mg PO AT BEDTIME 90 3 September 20, 2023 11:24am September 19, 2024 11:49am Start: 03-31-2022 End: 09-08-2022 Atorvastatin 40 mg tablet Discontinued 20 mg PO AT BEDTIME 45 3 September 08, 2022 1:29pm September 08, 2022 2:06pm Start: 03-31-2022 End: 09-08-2022 take 20 mg by mouth at bedtime Atorvastatin Discontinu ed 20 MG PO AT BEDTIME 45 September 08, 2022 12:29pm September 08, 2022 1:06pm Start: 08-22-2021 End: 03-31-2022 take 1 tablet by mouth at bedtime Atorvastatin 40 mg tablet Discontinued 40 mg PO AT BEDTIME 90 3 August 22, 2021 10:12am March 31, 2022 8:37am Start: 06-03-2020 End: 08-22-2021 take 1 tablet by mouth at bedtime Atorvastatin 20 mg tablet Discontinued 20 mg PO AT BEDTIME June 03, 2020 1:00am August 22, 2021 10:13am azithromycin 250 mg oral tablet (11 sources) Macrolide Antimicrobial Start: 06-20-2021 End: 07-23-2021 take 2-5 tablets by mouth once daily Azithromycin 250 mg tablet Discontinued 0 PO .COMPLEX 6 0 June 20, 2021 1:00am July 23, 2021 10:51am take 500 mg today (day 1), then 250 mg for 4 days (days 2-5) PO furosemide 40 mg oral tablet (20 sources) Loop Diuretic Start: 08-26-2020 End: 10-09-2020 take 1 tablet by mouth once daily Furosemide (Lasix) 40 mg tablet Discontinued 40 mg PO DAILY 30 August 26, 2020 5:05pm October 09, 2020 9:12am lansoprazole 30 mg delayed release oral capsule (18 sources) Proton Pump Inhibitor Start: 07-31-2022 End: 11-17-2024 take 1 capsule by mouth once daily Lansoprazole (Prevacid) 30 mg capsule,delayed release(DR/EC) Discontinued 30 mg PO DAILY October 07, 2023 4:28pm November 17, 2024 12:10pm methylPREDNISolone 4 mg oral tablet (6 sources) Corticosteroid Start: 02-12-2023 End: 06-04-2023 take 1 tablet by mouth once daily Methylprednisolone (Medrol (You)) 4 mg tablets,dose pack Discontinued 4 mg PO DAILY February 12, 2023 12:00am June 04, 2023 10:08am metoprolol tartrate 25 mg oral tablet (20 sources) beta-Adrenergic Janeth Start: 07-31-2020 End: 12-15-2024 Metoprolol Tartrate 25 mg tablet Discontinued 12.5 mg PO TWICE A DAY May 02, 2024 12:30pm December 15, 2024 8:54am Start: 07-31-2020 End: 04-05-2023 take 12.5 mg by mouth twice daily Metoprolol Tartrate Active 12.5 MG PO TWICE A DAY April 05, 2023 12:08pm Start: 06-21-2020 End: 07-31-2020 take 1 tablet by mouth twice daily Metoprolol Tartrate 25 mg tablet Discontinued 25 mg PO TWICE A DAY 60 June 21, 2020 2:07pm July 31, 2020 10:22am mupirocin 0.02 mg/mg topical ointment (20 sources) RNA Synthetase Inhibitor Antibacterial Start: 11-09-2023 End: 12-15-2024 Mupirocin 2 % ointment Discontinued 1 NMA TOPICAL DAILY 28 06May 19, 2024 9:23am December 15, 2024 8:27am Start: 02-15-2023 End: 11-09-2023 Mupirocin 2 % ointment Disco ntinued 1 NMA TOPICAL DAILY 28 06February 15, 2023 1:20pm November 09, 2023 4:06pm Start: 03-31-2022 End: 02-15-2023 Mupirocin 2 % ointment Disco ntinued 1 NMA TOPICAL DAILY March 31, 2022 8:35am February 15, 2023 1:20pm Start: 03-31-2022 End: 02-15-2023 Mupirocin Active 1 APPLIC TO PICAL DAILY February 15, 2023 12:20pm Start: 02-27-2022 End: 03-31-2022 Mupirocin 2 % ointment Disco ntinued 1 NMA TOPICAL TWICE A DAY 26 08February 27, 2022 12:00am March 31, 2022 8:37am pantoprazole 40 mg delayed release oral tablet (20 sources) Proton Pump Inhibitor Start: 07-23-2021 End: 07-31-2022 take 1 tablet by mouth once daily Pantoprazole 40 mg tablet,delayed release (DR/EC) Discontinued 40 mg PO DAILY 90 July 23, 2021 11:08am July 31, 2022 12:38pm Start: 04-04-2021 End: 07-23-2021 take 1 tablet by mouth twice daily Pantoprazole 40 mg tablet,delayed release (DR/EC) Discontinued 40 mg PO TWICE A DAY 180 April 04, 2021 9:32am July 23, 2021 11:09am Start: 09-21-2014 End: 04-04-2021 take 1 tablet by mouth once daily Pantoprazole 40 mg tablet,delayed release (DR/EC) Discontinued 40 mg PO DAILY 90 August 26, 2020 9:15am April 04, 2021 9:33am sennosides, long term 8.6 mg oral capsule (11 sources) Start: 07-31-2020 End: 08-26-2020 take 1 capsule by mouth twice daily Sennosides (Senna) 8.6 mg capsule Discontinued 8.6 mg PO TWICE A DAY July 31, 2020 1:00am August 26, 2020 8:39am tamsulosin hydrochloride 0.4 mg oral capsule (20 sources) alpha-Adrenergic Janeth Start: 08-05-2018 End: 03-17-2024 take 1 capsule by mouth at bedtime Tamsulosin 0.4 mg capsule Discontinued 0.4 mg PO AT BEDTIME 90 March 09, 2023 2:04pm March 17, 2024 12:00pm traMADol hydrochloride 50 mg oral tablet (11 sources) Opioid Agonist Start: 07-31-2020 End: 11-25-2020 take 1 tablet by mouth every six hours as needed Tramadol 50 mg tablet Discontinued 50 mg PO EVERY 6 HOURS as needed July 31, 2020 1:00am November 25, 2020 8:24am warfarin sodium 5 mg oral tablet (20 sources) Vitamin K Antagonist Start: 10-09-2020 End: 11-25-2020 take 2 tablets by mouth once daily Warfarin 5 mg tablet Discontinued 10 mg PO DAILY 180 3 October 14, 2020 4:48pm November 25, 2020 8:24am Please contact the information source for Protocol details. Start: 10-09-2020 End: 11-25-2020 take 10 mg by mouth once daily Warfarin Discontinued 1 0 MG PO DAILY 180 October 14, 2020 3:48pm November 25, 2020 7:24am Start: 09-21-2014 End: 10-09-2020 take 1 tablet by mouth once daily Warfarin 5 mg tablet Discontinued 5 mg PO DAILY June 03, 2020 1:00am October 09, 2020 9:15am Problems Active Problems Problem Classification Problem Date Documented Da te Episodic/Chronic Abdominal hernia (12 sources) Hernia of abdominal cavity; Translations: [Unspecified abdominal hernia without obstruction or gangrene] Episodic Abdominal pain (20 sources) Left flank pain; Translations: [Unspecified abdominal pain] 01-06-2021 Episodic Acute bronchitis (11 sources) Acute bronchitis; Translations: [Acute bronchitis, unspecified] 06-20-2021 Episodic Aortic; peripheral; and visceral artery aneurysms (11 sources) Aortic root dilatation; Translations: [Thoracic aortic ectasia] 06-21-2020 Chronic Blindness and vision defects (6 sources) Visual impairment; Translations: [Unqualified visual loss, right eye, normal vision left eye] 06-04-2023 Chronic Blindness and vision defects (1 source) Unqualified visual loss, right eye, normal vision left eye; Translations: [Unqualified visual loss, one eye] 06-04-2023 Chronic Chronic ulcer of skin (9 sources) Ulcer of lower extremity; Translations: [Non-pressure chronic ulcer of unspecified part of right lower leg with fat layer exposed] 02-27-2022 Chronic Coronary atherosclerosis and other heart disease (20 sources) Coronary arteriosclerosis; Translations: [Atherosclerotic heart disease of [place] coronary artery without angina pectoris] Onset: 01-09-2025 Chronic Disorders of lipid metabolism (18 sources) Mixed hyperlipidemia; Translations: [Mixed hyperlipidemia] Chronic Esophageal disorders (20 sources) Gastro-esophageal reflux disease without esophagitis; Translations: [Acid reflux] Onset: 11-23-2019 09-21-2014 Chronic Essential hypertension (20 sources) Essential hypertension; Translations: [Essential (primary) hypertension] Onset: 11-23-2024 Chronic Fever of unknown origin (2 sources) Fever, unspecified; Translations: [Fever, unspecified] Onset: 11-23-2019 Episodic Fluid and electrolyte disorders (1 source) Hypo-osmolality and hyponatremia; Translations: [Hypo-osmolality and hyponatremia] Onset: 11-23-2019 Episodic Heart valve disorders (20 sources) Aortic stenosis, non-rheumatic ; Translations: [Nonrheumatic aortic (valve) stenosis] Onset: 07-08-2020 Chronic Comment on above: mild to moderate per ECHO 12/27/19 23 mm [place] [place] valve-tissue valve 07/22/20 Hyperplasia of prostate (20 sources) Benign prostatic hyperplasia without lower urinary tract symptoms; Translations: [Benign prostatic hyperplasia] Onset: 11-23-2019 Chronic Open wounds of extremities (1 source) Unspecified open wound, left lower leg, initial encounter; Translations: [Unspecified open wound, left lower leg, initial encounter] Onset: 01-02-2025 Episodic Osteoarthritis (11 sources) Osteoarthritis of joint of left shoulder region; Translations: [Primary osteoarthritis, left shoulder] 12-18-2020 Chronic Other aftercare (1 source) terminal worker (current) use of anticoagulants; Translations: [terminal worker (current) use of anticoagulants] Onset: 11-23-2019 Episodic Other aftercare (15 sources) Long-term current use of anticoagulant; Translations: [halfway (current) use of anticoagulants] Episodic Other aftercare (1 source) Drug monitoring done; Translations: [Encounter for therapeutic drug level monitoring] Episodic Other connective tissue disease (11 sources) Tendinitis of left rotator cuff; Translations: [Other shoulder lesions, left shoulder] 12-18-2020 Episodic Other connective tissue disease (11 sources) Calcific tendinitis of left shoulder; Translations: [Calcific tendinitis of left shoulder] 11-25-2020 Episodic Other diseases of kidney and ureters (11 sources) Bilateral hydronephrosis ; Translations: [Unspecified hydronephrosis] 03-14-2021 Episodic Other diseases of veins and lymphatics (1 source) Peripheral venous insufficiency 06-24-2015 Episodic Other ear and sense organ disorders (10 sources) Bilateral earache; Translations: [Otalgia, bilateral] 01-16-2022 Episodic Other ear and sense organ disorders (1 source) Otalgia, bilateral; Translations: [Otalgia, unspecified] Episodic Other lower respiratory disease (1 source) Hypoxemia; Translations: [Hypoxemia] Onset: 11-23-2019 Episodic Other lower respiratory disease (6 sources) Rib pain; Translations: [Pleurodynia] 10-29-2022 Episodic Other lower respiratory disease (1 source) Other forms of dyspnea; Translations: [Other forms of dyspnea] Onset: 01-09-2025 Episodic Other nervous system disorders (1 source) 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 Other nervous system disorders (1 source) Unspecified mononeuropathy of bilateral lower limbs; Translations: [Unspecified mononeuropathy of bilateral lower limbs] Onset: 01-02-2025 Chronic Other nervous system disorders (8 sources) Tremor; Translations: [Tremor, unspecified] 11-17-2024 Episodic Other non-traumatic joint disorders (11 sources) Pain in right knee; Translations: [Right knee pain] 07-23-2021 Episodic Other non-traumatic joint disorders (5 sources) Shoulder pain; Translations: [Pain in left shoulder] 11-25-2020 Episodic Other non-traumatic joint disorders (6 sources) Hip pain; Translations: [Pain in right hip] 02-12-2023 Episodic Other non-traumatic joint disorders (6 sources) Pain in left shoulder; Translations: [Left shoulder pain] 11-25-2020 Episodic Other non-traumatic joint disorders (1 source) Pain in right hip; Translations: [Pain in joint, pelvic region and thigh] 06-18-2023 Episodic Peripheral and visceral atherosclerosis (12 sources) Peripheral vascular disease, unspecified; Translations: [Peripheral arterial disease] Onset: 11-23-2019 06-03-2020 Chronic Phlebitis; thrombophlebitis and thromboembolism (14 sources) Personal history of other venous thrombosis and embolism; Translations: [History of thromboembolism of vein] Onset: 11-23-2019 Episodic Comment on above: bilateral legs Chronic bilateral Pneumonia (except that caused by tuberculosis or sexually transmitted disease) (1 source) Unspecified bacterial pneumonia; Translations: [Unspecified bacterial pneumonia] Onset: 11-23-2019 Episodic Residual codes; unclassified (6 sources) Hypersomnia; Translations: [Hypersomnia, unspecified] 10-29-2022 Chronic Residual codes; unclassified (9 sources) Bilateral lower limb edema; Translations: [Localized edema] 02-27-2022 Episodic Residual codes; unclassified (8 sources) Problem, abnormal test; Translations: [Other general symptoms and signs] 10-02-2022 Episodic Residual codes; unclassified (3 sources) Other general symptoms and signs; Translations: [Other abnormal clinical findings] 10-02-2022 Episodic Skin and subcutaneous tissue infections (4 sources) Cellulitis of lower leg; Translations: [Cellulitis of left lower limb] 12-28-2024 Episodic Spondylosis; intervertebral disc disorders; other back problems (7 sources) Low back pain; Translations: [Low back pain] 02-12-2023 Episodic Unclassified (1 source) Invalid ICD10 Description; Translations: [Invalid ICD10 Description] Onset: 11-23-2019 Unclassified (1 source) Eye glasses, device (physical object) 09-21-2014 Varicose veins of lower extremity (1 source) Asymptomatic varicose veins of unspecified lower extremity; Translations: [Asymptomatic varicose veins of unspecified lower extremity] Onset: 11-23-2019 Episodic Past or Other Problems Problem Classification Problem Date Documented Da te Episodic/Chronic Coronary atherosclerosis and other heart disease (4 sources) Presence of aortocoronary bypass graft; Translations: [Aortocoronary bypass status] Onset: 07-08-2020 Episodic Residual codes; unclassified (14 sources) History of repair of ascending aorta; Translations: [Other specified postprocedural states] Onset: 07-08-2020 03-31-2022 Episodic Comment on above: aortoplasty of the a scending aorta 07/22/20 Residual codes; unclassified (4 sources) Other specified postprocedural states; Translations: [Personal history of surgery to heart and great vessels, presenting hazards to health] Onset: 07-08-2020 Episodic Results Test Name Value Interpretation Reference Range Facility Internal Medicine Office Vis benji 01-02-2025 Internal Medicine Office Visit [facility] [address] [place] [address] [place] [address] OFFICE VISIT Date of Service: 01/02/25 MR#: [id number] Acct: [id number] Name: HAYDEN CASE Boni Rep #: [id number] : 1945 Provider: BISHOP alston Age/Sex: 79/M Location: [facility] Status: Signed Intake Vital Signs 12/28/24 10:21 01/02/25 09:01 Height 5 ft 11 in Weight: 224 lb BMI 31.2 BP 121/73 H 158/94 H Blood Pressure Location Lt brachial Lt brachial Position Sitting Sitting Respiration 18 Pulse 67 76 Pulse Source Monitor Monitor Temp 98.2 F 98.4 F Temp Source Temporal Temporal Pulse Oximetry (%) 96 95 Oxygen Delivery Method room air room air Intake Visit Reasons: [facility] F/U Chief Complaint: 6 M FU Security Rep Required: No Accompanied by: Is patient in pain?: No Allergies Penicillins Adverse Reaction (Unknown, Verified 01/02/25 08:53) Extreme Pain Medications ???Medication ???Instructions ???Recorded ???Confirmed ???Type aspirin 81 mg tablet,delayed 81 mg PO DAILY #1 TAB 06/13/20 Rx release omega-3 fatty acids 1,000 mg 1,000 mg PO DAILY 06/13/20 5 History capsule (Fish Oil Concentrate) polyethylene glycol 3350 17 gram 17 g PO DAILY 07/31/20 01/02/25 Hi story oral powder packet (Miralax) tamsulosin 0.4 mg capsule 0.4 mg PO QHS #90 caps 03/17/24 Rx apixaban 5 mg tablet (Eliquis) 5 mg PO BID #180 tabs 04/28/24 Rx atorvastatin 20 mg tablet 20 mg PO QHS #90 tabs 09/19/24 Rx lansoprazole 30 mg capsule,delayed 30 mg PO DAILY #90 caps 11/17/24 01/02/25 Rx release (Prevacid) cephalexin 500 mg capsule 500 mg PO Q6H 7 days #28 caps 12/0601/02/25 Rx Have you fallen in the past year?: No Nurse's Note: Pt was seen on 12/28/24 for Cellulitis on LLE, pt was started on Keflex but it was noted it looked really bad. Pt has seen a lot of improvement w/ the keflex and has 2 more days left. Pt denies, redness, warmth, or drainage. He states there is still some swelling but it is nowhere near what it was. Pt denies redness traveling up or down. Pt has been elevating and using compression socks. Upon examination. Pt has warmth, purple tissue, some yellow where skin tore. Pt has very edematous L ankle swelling and a wound on the ankle which has been there for a year and never fully healed, The wound did not occur w/ any injury, it is yellow, and seeping. Pt states that was there before the cellulitis, pt also c/o dulled sensation in BLE and pins and needles, w/ slow healing wounds for a long time now. a1c done to this. +1 pitting edema noted. [facility] Medical History Cellulitis of left lower leg Tremor Low back pain Bilateral hip pain Hypersomnolence Rib pain on left side Bilateral lower extremity edema Ulcer of right lower extremity with fat layer exposed Chronic pain of both ears Abdominal hernia CAD (coronary artery disease) Right knee pain Enlarged prostate Bilateral hydronephrosis Abdominal pain BPH (benign prostatic hyperplasia) Left flank pain Calcific tendinitis of left shoulder Left shoulder pain Aortic root dilatation Atherosclerotic heart disease of [place] coronary artery without angina pectoris Mixed hyperlipidemia GERD (gastroesophageal reflux disease) BPH (benign prostatic hyperplasia) PAD (peripheral artery disease) Non-rheumatic mitral regurgitation Non-rheumatic aortic regurgitation Nonrheumatic aortic (valve) stenosis Essential hypertension Peripheral neuropathy History of DVT (deep vein thrombosis) Surgical History History of ascending aorta repair ( 07/22/20) History of aortic valve replacement with bioprosthetic valve ( 07/22/20) History of coronary artery bypass surgery ( 07/22/20) History of right and left heart catheterization (LHC) ( 06/21/20) History of hernia repair Family History Other Sudden cardiac Social History household members: children housing: house Smoking Status: Former smoker how long ago did patient quit smokin years ago alcohol intake: never substance use type: does not use caffeine: Yes Type: coffee Number of servings: 1 what type of physical activity do you participate in: none do you feel safe at home: Yes HPI HPI Chief Complaint: 6 M FU Details: HAYDEN CASE, is a 79 M who presents to the office today for follow-up for cellulitis of the left lower extremity. Patient does have a history of of chronic vascular disease as well as neuropathy. Patient states that he has had a wound to the left inner aspect of his (more content not included)... Normal [facility] Urgent Care Visit Reporton 0 12-28-2024 Urgent Care Visit Report [facility] [address], [address] [place] [address] OFFICE VISIT Date of Service: 12/28/24 MR#: [id number] Acct: [id number] Name: HAYDEN CASE Rep #: [id number] : 1945 Provider: BISHOP Holloway Age/Sex: 79/M Location: [facility] Status: Signed Intake Vital Signs 12/15/24 08:25 12/28/24 10:21 Height 5 ft 11 in 5 ft 11 in Weight: 226 lb 224 lb BMI 31.5 31.2 BP 96/48 L 121/73 H Blood Pressure Location Lt brachial Lt brachial Position Sitting Sitting Respiration 18 Pulse 55 L 67 Pulse Source Monitor Monitor Temp 98.2 F Temp Source Temporal Pulse Oximetry (%) 92 96 Oxygen Delivery Method room air room air Intake Visit Reasons: LEFT LEG INFECTED/ SORES Chief Complaint: 6 M FU Allergies Penicillins Adverse Reaction (Unknown, Verified 12/28/24 10:22) Extreme Pain Medications ???Medication ???Instructions ???Recorded ???Confirmed ???Type aspirin 81 mg tablet,delayed 81 mg PO DAILY #1 TAB 06/13/20 Rx release omega-3 fatty acids 1,000 mg 1,000 mg PO DAILY 06/13/20 5 History capsule (Fish Oil Concentrate) polyethylene glycol 3350 17 gram 17 g PO DAILY 07/31/20 12/28/24 Hi story oral powder packet (Miralax) tamsulosin 0.4 mg capsule 0.4 mg PO QHS #90 caps 03/17/24 Rx apixaban 5 mg tablet (Eliquis) 5 mg PO BID #180 tabs 04/28/24 Rx atorvastatin 20 mg tablet 20 mg PO QHS #90 tabs 09/19/24 Rx lansoprazole 30 mg capsule,delayed 30 mg PO DAILY #90 caps 11/17/24 12/28/24 Rx release (Prevacid) cephalexin 500 mg capsule 500 mg PO Q6H 7 days #28 caps 12/0612/28/24 Rx Have you fallen in the past year?: No PFSH Medical History (Updated 12/28/24 @ 10:31 by BISHOP Patel) Cellulitis of left lower leg Tremor Low back pain Bilateral hip pain Hypersomnolence Rib pain on left side Bilateral lower extremity edema Ulcer of right lower extremity with fat layer exposed Chronic pain of both ears Abdominal hernia CAD (coronary artery disease) Right knee pain Enlarged prostate Bilateral hydronephrosis Abdominal pain BPH (benign prostatic hyperplasia) Left flank pain Calcific tendinitis of left shoulder Left shoulder pain Aortic root dilatation Atherosclerotic heart disease of [place] coronary artery without angina pectoris Mixed hyperlipidemia GERD (gastroesophageal reflux disease) BPH (benign prostatic hyperplasia) PAD (peripheral artery disease) Non-rheumatic mitral regurgitation Non-rheumatic aortic regurgitation Nonrheumatic aortic (valve) stenosis Essential hypertension Peripheral neuropathy History of DVT (deep vein thrombosis) Surgical History History of ascending aorta repair ( 07/22/20) History of aortic valve replacement with bioprosthetic valve ( 07/22/20) History of coronary artery bypass surgery ( 07/22/20) History of right and left heart catheterization (LHC) ( 06/21/20) History of hernia repair Family History Other Sudden cardiac Social History household members: children housing: house Smoking Status: Former smoker how long ago did patient quit smokin years ago alcohol intake: never substance use type: does not use caffeine: Yes Type: coffee Number of servings: 1 what type of physical activity do you participate in: none do you feel safe at home: Yes HPI HPI Chief Complaint: 6 M FU Details: HAYDEN CASE, is a 79 M who presents to the office today for HPI: Patient presents today complaining of increased redness and swelling to his left lower extremity. He notes that he does have chronic vascular changes however he feels that over the last several days it has worsened becoming more red and swollen. Patient does have a history of DVT for which he takes Eliquis and denies any missed doses. Denies any fever. Denies any trauma to the leg. ROS: As noted in HPI Physical Exam: VITALS: Reviewed. GEN: Healthy appearing, well-developed, NAD. PSYCH: AOx3. Normal memory, mood, and affect. HEENT -Eyes: -No discharge or redness; -Ears: -Mouth and throat: Moist mucous membranes. NECK: CV: Regular rate and rhythm LUNGS: Normal respiratory effort. Lungs clear bilaterally. SKIN: Warm, well perfused. Chronic vascular changes and erythema to the left lower leg from the lower calf down to and including the left foot. There are several ulcerated areas. No obvious drainage noted. No obvious streaking noted. MSK: Normal gait. No calf or popliteal tenderness. NEURO: Ambulating with no limitations. Normal muscle strength and tone. No focal deficits. C (more content not included)... Normal [facility] Cardiology Visit Reporton Cardiology Visit Report [facility] [address] [place] [address] OFFICE VISIT Date of Service: 12/15/24 MR#: [id number] Acct: [id number] Name: HAYDEN CASE Rep #: [id number] : 1945 Provider: FLEX Bañuelos Age/Sex: 79/M Location: [facility] Status: Signed HPI HPI History of Present Illness Details: Hayden Case is an 79-year-old male who presents to office today for follow-up for monitoring his cardiovascular health. He has a history of CAD status post CABG, status post aortic valve replacement, status post ascending aortic aortoplasty, hyperlipidemia and hypertension. He has a history of chronic DVT and is on Eliquis for this. Patient underwent CABG at [facility] receiving HERMAN to the LAD and SVG to the diagonal branch. His aortic valve replacement and aortoplasty was performed at [facility] 05/21/2021. Most recent echocardiogram 01/14/2024 demonstrates ejection fraction of 60%, pulmonary artery systolic pressure 34 mmHg, mean aortic valve gradient 20 mmHg with normal prosthetic aortic valve. Upon presentation today, patient reports fatigue described as low energy with exertion. His daughter shares he fell asleep several times on his way to his appointment today. He reports he typically gets good sleep but went to bed late last night. He reports dizziness most noticed when walking or going from sitting to standing. He notices bilateral lower extremity edema that fluctuates. He denies any noticable correlation with his swelling, nothing makes it better, nothing worsens it/causes it. He becomes short of breath with activity, as simple as walking on a flat surface. this has been going on for probably about a year now. Further ROS below. 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 His job does not required exerting himself. Intake Vital Signs 12/14/23 08:41 11/17/24 08:19 12/15/24 08:25 Height 5 ft 11 in 5 ft 11 in 5 ft 11 in Weight: 226 lb BMI 31.5 BP 96/48 L Blood Pressure Location Lt brachial Position Sitting Respiration 18 Pulse 55 L Pulse Source Monitor Pulse Oximetry (%) 92 Oxygen Delivery Method room air Intake Visit Reasons: 1 Y FU Security Rep Required: No Is patient in pain?: No Allergies Penicillins Adverse Reaction (Unknown, Verified 12/15/24 08:25) Extreme Pain Medications ???Medication ???Instructions ???Recorded ???Confirmed ???Type aspirin 81 mg tablet,delayed 81 mg PO DAILY #1 TAB 06/13/2005/01 Rx release omega-3 fatty acids 1,000 mg 1,000 mg PO DAILY 06/13/20 5 History capsule (Fish Oil Concentrate) polyethylene glycol 3350 17 gram 17 g PO DAILY 07/31/20 12/15/24 Hi story oral powder packet (Miralax) tamsulosin 0.4 mg capsule 0.4 mg PO QHS #90 caps 03/17/24 Rx apixaban 5 mg tablet (Eliquis) 5 mg PO BID #180 tabs 04/28/2405/01 Rx atorvastatin 20 mg tablet 20 mg PO QHS #90 tabs 09/19/2405/01 Rx lansoprazole 30 mg capsule,delayed 30 mg PO DAILY #90 caps 11/17/24 12/15/24 Rx release (Prevacid) Have you fallen in the past year?: No PFSH Medical History Tremor Low back pain Bilateral hip pain Hypersomnolence Rib pain on left side Bilateral lower extremity edema Ulcer of right lower extremity with fat layer exposed Chronic pain of both ears Abdominal hernia CAD (coronary artery disease) Right knee pain Enlarged prostate Bilateral hydronephrosis Abdominal pain BPH (benign prostatic hyperplasia) Left flank pain Calcific tendinitis of left shoulder Left shoulder pain Aortic root dilatation Atherosclerotic heart disease of [place] coronary artery without angina pectoris Mixed hyperlipidemia GERD (gastroesophageal reflux disease) BPH (benign prostatic hyperplasia) PAD (peripheral artery disease) Non-rheumatic mitral regurgitation Non-rheumatic aortic regurgitation Nonrheumatic aortic (valve) stenosis Essential hypertension Peripheral neuropathy History of DVT (deep vein thrombosis) Surgical History History of ascending aorta repair ( 07/22/20) History of aortic valve replacement with bioprosthetic valve ( 07/22/20) History of coronary artery bypass surgery ( 07/22/20) History of right and left heart catheterization (LHC) ( 06/21/20) History of hernia repair Family History Other Sudden cardiac Social History household members: children housing: house Smoking Status: Former smoker how long ago did patient quit smokin years ago alcohol intake: never substance use type: does not use caffeine: Yes Type: coffee Number of servings: 1 what type of ph (more content not included)... Normal [facility] Absolute lymphocyte countOrd ered By: Guillaume Javed on 11-17-2024 Lymphocytes Auto (Unsp spec) [#/Vol] 1.72 10*3/uL 0.83-4.51 [facility] Absolute neutrophil countOrd ered By: Guillaume Javed on 11-17-2024 Neutrophils (Bld) [#/Vol] 5.4 10*3/uL 2.0-7.7 [facility] Anion gap in Serum or Plasma Ordered By: Guillaume Javed on 11-17-2024 Anion gap [Moles/Vol] 10 mmol/L 5-15 [facility] Automated lymphocyte count a s percentage of total leukocytesOrdered By: Guillaume Javed on 11-17-2024 Lymphocytes/100 WBC Auto (Unsp spec) 21.2 % 19-41 [facility] BUN/creatinine ratioOrdered By: Guillaume Javed on 11-17-2024 Urea nitrogen/Creatinine [Mass ratio] 28.6 mg/mg High 10-20 [facility] Basophil percentageOrdered B y: Guillaume Javed on 11-17-2024 Basophils/100 WBC (Bld) 0.2 % 0-1 [facility] Bilirubin directOrdered By: Guillaume Javed on 11-17-2024 Bilirubin.direct [Mass/Vol] 0.24 mg/dL 0.00-0.30 [facility] Bilirubin, Directon 11-18-19 25 Bilirubin.direct [Mass/Vol] 0.24 mg/dL Normal 0.00-0.30 [facility] Comment on above: Order Comment: DR. Juan Ramon POSADAS ORDERED ALL LABS BUT JUNIE LENA JESSIE ORDERED LIVER Performed By: #### L [id number], L501.9910, L500.4050, L506.0400, L100.0100, L501.4700 #### [facility] [address] [place], [address] Bilirubin, totalOrdered By: Guillaume Javed on 11-17-2024 Bilirubin [Mass/Vol] 0.56 mg/dL 0.00-1.30 [facility] CBC W/Diff, Automatedon 11-05 Absolute Lymph 1.72 X10 3/uL Normal 0.83-4.51 [facility] Comment on above: Performed By: #### L [id number], L501.9910, L500.4050, L506.0400, L100.0100, L501.4700 #### [facility] [address] [place], [address] Absolute Neut 5.4 X10 3/uL Normal 2.0-7.7 [facility] Comment on above: Performed By: #### L [id number], [id number], L500.4050, L506.0400, L100.0100, L501.4700 #### [facility] [address] [place], [address] Basophils/100 WBC (Bld) 0.2 % Normal 0-1 [facility] Comment on above: Performed By: #### L [id number], [id number], L500.4050, L506.0400, L100.0100, L501.4700 #### [facility] [address] [place], [address] Eosinophils/100 WBC (Bld) 3.7 % Normal 0-5 [facility] Comment on above: Performed By: #### L [id number], L501.9910, L500.4050, L506.0400, L100.0100, L501.4700 #### [facility] [address] [place], [address] Erythrocyte distribution width (RBC) [Ratio] 14.5 % Normal 11.6-14.6 [facility] Comment on above: Performed By: #### L [id number], L501.9910, L500.4050, L506.0400, L100.0100, L501.4700 #### [facility] [address] [place], [address] Hematocrit (Bld) [Volume fraction] 38.8 % Low 40-54 [facility] Comment on above: Performed By: #### L [id number], L501.9910, L500.4050, L506.0400, L100.0100, L501.4700 #### [facility] [address] [place], [address] Hemoglobin (Bld) [Mass/Vol] 12.7 g/dL Low 13.0-16.5 [facility] Comment on above: Performed By: #### L [id number], L501.9910, L500.4050, L506.0400, L100.0100, L501.4700 #### [facility] [address] [place], [address] IG% 0.400 Normal 0.0-0.9 [facility] Comment on above: Result Comment: IG% - Immature Granulocytes (promyelocytes, myelocytes and metamyelocytes) > 1% indicates that a LEFT SHIFT is Present. Performed By: #### L [id number], L501.9910, L500.4050, L506.0400, L100.0100, L501.4700 #### [facility] [address] [place], [address] Lymphocytes/100 WBC (Bld) 21.2 % Normal 19-41 [facility] Comment on above: Performed By: #### L [id number], L501.9910, L500.4050, L506.0400, L100.0100, L501.4700 #### [facility] [address] [place], [address] MCH (RBC) [Entitic mass] 30.2 pg Normal 27.0-32.0 [facility] Comment on above: Performed By: #### L [id number], L501.9910, L500.4050, L506.0400, L100.0100, L501.4700 #### [facility] [address] [place], [address] MCHC (RBC) [Mass/Vol] 32.7 g/dL Normal 32-36 [facility] Comment on above: Performed By: #### L [id number], L501.9910, L500.4050, L506.0400, L100.0100, L501.4700 #### [facility] [address] [place], [address] MCV (RBC) [Entitic vol] 92.4 fL Normal 80-94 [facility] Comment on above: Performed By: #### L [id number], L501.9910, L500.4050, L506.0400, L100.0100, L501.4700 #### [facility] [address] [place], [address] Monocytes/100 WBC (Bld) 8.3 % Normal 0-10 [facility] Comment on above: Performed By: #### L [id number], L501.9910, L500.4050, L506.0400, L100.0100, L501.4700 #### [facility] [address] [place], [address] Neutrophils/100 WBC (Bld) 66.2 % Normal 47-70 [facility] Comment on above: Performed By: #### L 501.9520, L501.9910, L500.4050, L506.0400, L100.0100, L501.4700 #### [facility] [address] [place], [address] Nucleated RBC (Bld) [#/Vol] 0 10*3/uL Normal 0-5 [facility] Comment on above: Performed By: #### L 501.9520, L501.9910, L500.4050, L506.0400, L100.0100, L501.4700 #### [facility] [address] [place], [address] Platelet mean volume (Bld) [Entitic vol] 11.4 fL Normal 6.2-12.0 [facility] Comment on above: Performed By: #### L 501.9520, L501.9910, L500.4050, L506.0400, L100.0100, L501.4700 #### [facility] [address] [place], [address] Platelets (Bld) [#/Vol] 140 10*3/uL Low 150-450 [facility] Comment on above: Performed By: #### L [id number], L501.9910, L500.4050, L506.0400, L100.0100, L501.4700 #### [facility] [address] [place], [address] RBC (Bld) [#/Vol] 4.20 10*6/uL Low 4.6-6.2 [facility] Comment on above: Performed By: #### L 501.9520, L501.9910, L500.4050, L506.0400, L100.0100, L501.4700 #### [facility] [address] [place], [address] RDW SD 48.9 fl High 35.1-43.9 [facility] Comment on above: Performed By: #### L 501.9520, L501.9910, L500.4050, L506.0400, L100.0100, L501.4700 #### [facility] [address] [place], [address] WBC (Bld) [#/Vol] 8.1 10*3/uL Normal 4.4-11.0 [facility] Comment on above: Performed By: #### L 501.9520, L501.9910, L500.4050, L506.0400, L100.0100, L501.4700 #### [facility] [address] [place], [address] Calculated very low density lipoprotein (VLDL) cholesterol measurementOrdered By: Lena Roman on 11-17-2024 Calculated very low density lipoprotein (VLDL) cholesterol measurement 19 mg/dL 5-40 [facility] Carbon dioxide, total [Moles /volume] in Central venous bloodOrdered By: Guillaume Javed on 11-17-2024 CO2 [Moles/Vol] 26.3 mmol/L 21.0-32.0 [facility] Chloride assayOrdered By: Leonora Javed on 11-17-2024 Chloride [Moles/Vol] 102 mmol/L 98-108 [facility] Comprehensive Metabolic Prof ilon 11-17-2024 Albumin [Mass/Vol] 4.1 g/dL Normal 3.4-4.8 [facility] Comment on above: Order Comment: DR. Juan Ramon POSADAS ORDERED ALL LABS BUT JUNIE ROMAN ORDERED LIVER Performed By: #### L 501.9520, L501.9910, L500.4050, L506.0400, L100.0100, L501.4700 #### [facility] [address] [place], [address] Albumin/Globulin [Mass ratio] 1.5 {ratio} Normal 0.9-2.4 [facility] Comment on above: Order Comment: DR. Juan Ramon POSADAS ORDERED ALL LABS BUT JUNIE PAREDES JESSIE ORDERED LIVER Performed By: #### L 501.9520, L501.9910, L500.4050, L506.0400, L100.0100, L501.4700 #### [facility] [address] [place], [address] ALK PHOS 62 U/L Normal 40-129 [facility] Comment on above: Order Comment: DR. Juan Ramon POSADAS ORDERED ALL LABS BUT JUNIE PAREDES JESSIE ORDERED LIVER Performed By: #### L 501.9520, L501.9910, L500.4050, L506.0400, L100.0100, L501.4700 #### [facility] [address] [place], [address] ALT [Catalytic activity/Vol] 32 U/L Normal <=46 [facility] Comment on above: Order Comment: DR. Juan Ramon POSADAS ORDERED ALL LABS BUT JUNIE LENA ROMAN ORDERED LIVER Performed By: #### L 501.9520, L501.9910, L500.4050, L506.0400, L100.0100, L501.4700 #### [facility] [address] [place], [address] AST [Catalytic activity/Vol] 34 U/L Normal <=37 [facility] Comment on above: Order Comment: DR. Juan Ramon POSADAS ORDERED ALL LABS BUT JUNIE LENA ROMAN ORDERED LIVER Performed By: #### L 501.9520, L501.9910, L500.4050, L506.0400, L100.0100, L501.4700 #### [facility] [address] [place], [address] Bilirubin [Mass/Vol] 0.56 mg/dL Normal 0.00-1.30 [facility] Comment on above: Order Comment: DR. Juan Ramon POSADAS ORDERED ALL LABS BUT JUNIE ROMAN ORDERED LIVER Performed By: #### L 501.9520, L501.9910, L500.4050, L506.0400, L100.0100, L501.4700 #### [facility] [address] [place], [address] BUN/CRE 28.6 RATIO High 10-20 [facility] Comment on above: Order Comment: DR. Juan Ramon POSADAS ORDERED ALL LABS BUT JUNIE ROMAN ORDERED LIVER Performed By: #### L [id number], L501.9910, L500.4050, L506.0400, L100.0100, L501.4700 #### [facility] [address] [place], [address] Calcium [Mass/Vol] 9.2 mg/dL Normal 7.6-11.0 [facility] Comment on above: Order Comment: DR. Juan Ramon POSADAS ORDERED ALL LABS BUT JUNIE ROMAN ORDERED LIVER Performed By: #### L [id number], L501.9910, L500.4050, L506.0400, L100.0100, L501.4700 #### [facility] [address] [place], [address] Chloride [Moles/Vol] 102 mmol/L Normal 98-108 [facility] Comment on above: Order Comment: DR. Juan Ramon POSADAS ORDERED ALL LABS BUT JUNIE ROMAN ORDERED LIVER Performed By: #### L [id number], L501.9910, L500.4050, L506.0400, L100.0100, L501.4700 #### [facility] [address] [place], [address] CO2 [Moles/Vol] 26.3 mmol/L Normal 21.0-32.0 [facility] Comment on above: Order Comment: DR. Juan Ramon POSADAS ORDERED ALL LABS BUT JUNIE ROMAN ORDERED LIVER Performed By: #### L [id number], L501.9910, L500.4050, L506.0400, L100.0100, L501.4700 #### [facility] [address] [place], [address] Creatinine [Mass/Vol] 1.06 mg/dL Normal 0.70-1.20 [facility] Comment on above: Order Comment: DR. Juan Ramon POSADAS ORDERED ALL LABS BUT JUNIE ROMAN ORDERED LIVER Performed By: #### L [id number], L501.9910, L500.4050, L506.0400, L100.0100, L501.4700 #### [facility] [address] [place], [address] GAP 10 Normal 5-15 [facility] Comment on above: Order Comment: DR. Juan Ramon POSADAS ORDERED ALL LABS BUT JUNIE ROMAN ORDERED LIVER Performed By: #### L [id number], L501.9910, L500.4050, L506.0400, L100.0100, L501.4700 #### [facility] [address] [place], [address] GFR/1.73 sq M.predicted among non-blacks MDRD (S/P/Bld) [Vol rate/Area] 71 mL/min/{1.73_m2} Normal >60 [facility] Comment on above: Order Comment: DR. Juan Ramon POSADAS ORDERED ALL LABS BUT JUNIE ROMAN ORDERED LIVER Result Comment: mL/m in/1.73m2 CKD-EPI Creatinine Equation (2020) Performed By: #### L 501.9520, L501.9910, L500.4050, L506.0400, L100.0100, L501.4700 #### [facility] [address] [place], [address] Globulin (S) [Mass/Vol] 2.7 g/dL Normal 2.2-4.2 [facility] Comment on above: Order Comment: DR. Juan Ramon POSADAS ORDERED ALL LABS BUT JUNIE ROMAN ORDERED LIVER Performed By: #### L 501.9520, L501.9910, L500.4050, L506.0400, L100.0100, L501.4700 #### [facility] [address] [place], [address] Glucose [Mass/Vol] 96 mg/dL Normal 70-99 [facility] Comment on above: Order Comment: DR. Juan Ramon POSADAS ORDERED ALL LABS BUT JUNIE ROMAN ORDERED LIVER Performed By: #### L 501.9520, L501.9910, L500.4050, L506.0400, L100.0100, L501.4700 #### [facility] [address] [place], [address] Potassium [Moles/Vol] 4.4 mmol/L Normal 3.3-5.1 [facility] Comment on above: Order Comment: DR. Juan Ramon POSADAS ORDERED ALL LABS BUT JUNIE ROMAN ORDERED LIVER Performed By: #### L 501.9520, L501.9910, L500.4050, L506.0400, L100.0100, L501.4700 #### [facility] [address] [place], [address] Sodium [Moles/Vol] 139 mmol/L Normal 133-145 [facility] Comment on above: Order Comment: DR. Juan Ramon POSADAS ORDERED ALL LABS BUT JUNIE ROMAN ORDERED LIVER Performed By: #### L 501.9520, L501.9910, L500.4050, L506.0400, L100.0100, L501.4700 #### [facility] [address] [place], [address] T PROT 6.8 g/dL Normal 5.9-8.4 [facility] Comment on above: Order Comment: DR. Juan Ramon POSADAS ORDERED ALL LABS BUT JUNIE ROMAN ORDERED LIVER Performed By: #### L 501.9520, L501.9910, L500.4050, L506.0400, L100.0100, L501.4700 #### [facility] [address] [place], [address] Urea nitrogen [Mass/Vol] 30 mg/dL High 4-19 [facility] Comment on above: Order Comment: DR. Juan Ramon POSADAS ORDERED ALL LABS BUT JUNIE LENA JESSIE ORDERED LIVER Performed By: #### L 501.9520, L501.9910, L500.4050, L506.0400, L100.0100, L501.4700 #### [facility] [address] [place], [address] Eosinophil percentageOrdered By: Guillaume Javed on 11-17-2024 Eosinophils/100 WBC (Bld) 3.7 % 0-5 [facility] Erythrocyte distribution wid th ratioOrdered By: Guillaume Javed on 11-17-2024 Erythrocyte distribution width (RBC) [Ratio] 14.5 % 11.6-14.6 [facility] Erythrocyte distribution wid th standard deviationOrdered By: Guillaume Javed on 11-17-2024 Erythrocyte distribution width (RBC) [Ratio] 48.9 fl High 35.1-43.9 [facility] Glomerular filtration rate ( GFR) estimation/1.73 sq m using serum, plasma, or whole bOrdered By: Guillaume Javed on 11-17-2024 GFR/1.73 sq M.predicted among non-blacks MDRD (S/P/Bld) [Vol rate/Area] 71 mL/min/{1.73_m2} >60 [facility] Comment on above: mL/min/1.73m2 CKD-EP I Creatinine Equation (2020) Hematocrit Auto (Bld) [Volum e fraction]Ordered By: Guillaume Javed on 11-17-2024 Hematocrit (Bld) [Volume fraction] 38.8 % Low 40-54 [facility] Hemoglobin measurementOrdere d By: Guillaume Javed on 11-17-2024 Hemoglobin (Bld) [Mass/Vol] 12.7 g/dL Low 13.0-16.5 [facility] Immature granulocytes/100 WB C Auto (Bld)Ordered By: Guillaume Javed on 11-17-2024 Immature granulocytes/100 WBC (Bld) 0.400 % 0.0-0.9 [facility] Comment on above: IG% - Immature Granu locytes (promyelocytes, myelocytes and metamyelocytes) > 1% indicates that a LEFT SHIFT is Present. Internal Medicine Office Vis iton 11-17-2024 Internal Medicine Office Visit [facility] [address] [place] [address] [place] [address] OFFICE VISIT Date of Service: 11/17/24 MR#: [id number] Acct: [id number] Name: HAYDEN CASE Rep #: [id number] : 1945 Provider: Dr. Guillaume martinez MD Age/Sex: 79/M Location: [facility] Status: Signed Intake Vital Signs 05/19/24 07:54 11/17/24 08:19 Height 5 ft 11 in 5 ft 11 in Weight: 225 lb BMI 31.4 BP 126/72 H Blood Pressure Location Lt brachial Position Sitting Respiration 16 Pulse 68 Pulse Source Monitor Temp 97.4 F L Temp Source Temporal Pulse Oximetry (%) 95 Oxygen Delivery Method room air Intake Visit Reasons: 6 M FU Chief Complaint: 6 M FU Is patient in pain?: No Allergies Penicillins Adverse Reaction (Unknown, Verified 11/17/24 08:16) Extreme Pain Medications ???Medication ???Instructions ???Recorded ???Confirmed ???Type aspirin 81 mg tablet,delayed 81 mg PO DAILY #1 TAB 06/13/20 Rx release omega-3 fatty acids 1,000 mg 1,000 mg PO DAILY 06/13/20 5 History capsule (Fish Oil Concentrate) polyethylene glycol 3350 17 gram 17 g PO DAILY 07/31/20 11/17/24 Hi story oral powder packet (Miralax) tamsulosin 0.4 mg capsule 0.4 mg PO QHS #90 caps 03/17/24 Rx apixaban 5 mg tablet (Eliquis) 5 mg PO BID #180 tabs 04/28/24 Rx metoprolol tartrate 25 mg tablet 12.5 mg (1/2 x 25 mg) PO BID #90 1 07/02/23 11/17/24 Rx tabs mupirocin 2 % topical ointment 1 applic topical DAILY #22 grams 1 07/20/23 11/17/24 Rx atorvastatin 20 mg tablet 20 mg PO QHS #90 tabs 09/19/24 Rx lansoprazole 30 mg capsule,delayed 30 mg PO DAILY #90 caps 11/17/24 Rx release (Prevacid) Have you fallen in the past year?: No PFSH Medical History (Updated 11/17/24 @ 12:[address] Guillaume Javed MD) Tremor Low back pain Bilateral hip pain Hypersomnolence Rib pain on left side Bilateral lower extremity edema Ulcer of right lower extremity with fat layer exposed Chronic pain of both ears Abdominal hernia CAD (coronary artery disease) Right knee pain Enlarged prostate Bilateral hydronephrosis Abdominal pain BPH (benign prostatic hyperplasia) Left flank pain Calcific tendinitis of left shoulder Left shoulder pain Aortic root dilatation Atherosclerotic heart disease of [place] coronary artery without angina pectoris Mixed hyperlipidemia GERD (gastroesophageal reflux disease) BPH (benign prostatic hyperplasia) PAD (peripheral artery disease) Non-rheumatic mitral regurgitation Non-rheumatic aortic regurgitation Nonrheumatic aortic (valve) stenosis Essential hypertension Peripheral neuropathy History of DVT (deep vein thrombosis) Surgical History History of ascending aorta repair ( 07/22/20) History of aortic valve replacement with bioprosthetic valve ( 07/22/20) History of coronary artery bypass surgery ( 07/22/20) History of right and left heart catheterization (LHC) ( 06/21/20) History of hernia repair Family History Other Sudden cardiac Social History household members: children housing: house Smoking Status: Former smoker how long ago did patient quit smokin years ago alcohol intake: never substance use type: does not use caffeine: Yes Type: coffee Number of servings: 1 what type of physical activity do you participate in: none do you feel safe at home: Yes HPI HPI Chief Complaint: 6 M FU Details: HAYDEN CASE, is a 79 M who presents to the office today for follow up of his chronic medical conditions. Also has some concerns. Reports tremors which he believes started a year ago. He states that it is intermittent and sometimes with intentionality, he believes he could control it. Occasionally, feels dizzy but he states that this typically only happens after lunch at work. No falls. No family history of Parkinson's. Feels well otherwise. History of hypertension, blood pressure today 26/72 mmHg. No chest pain, palpitation or shortness of breath. Also history of reflux on Prevacid. No dark or bloody stool or unintentional weight changes. Other chronic medical conditions are stable. ROS Const Constitutional: No body ache, chills, excessive sweating, fatigue, fever(s), frequent falls, headache(s), snoring, weakness, sleep problems or change in appetite Eyes Eyes: No blurry vision, change in vision, bulging eyes, floaters, visual disturbances or Light sensitivity ENT ENT: No abnormal hearing, ear or mastoid pain, tinnitus, balance problems, nosebleed/epistaxis , nasal congestion, nasal discharge, headache(s), neck pain or sore throat Resp Respiratory: No cough, excessive phlegm produ (more content not included)... Normal [facility] LDL calc ser/plasOrdered By: Lena Roman on 11-17-2024 Cholesterol in LDL [Mass/Vol] 75 mg/dL [facility] Comment on above: Artcomoeha=172-285 m g/dL & Higher Kzav=618 mg/dL or greater Laboratory - Chemistry and C hemistry - challengeOrdered By: Guillaume Javed on 11-17-2024 AST [Catalytic activity/Vol] 34 U/L <38 [facility] Lipid Profileon 11-17-2024 CHOL:HDL 3.06 Normal [facility] Comment on above: Performed By: #### L 500.4100 #### [facility] [address] [place], [address] Cholesterol [Mass/Vol] 140 mg/dL Normal <=200 [facility] Comment on above: Result Comment: Chol esterol level, Desirable <200 mg/dL Borderline high cholesterol 200-239 mg/dL High cholesterol >=240 mg/dL Recommendations of the NCEP Adult Treatment Panel for the following risk-cutoff thresholds for the [place] population. Performed By: #### L 500.4100 #### [facility] [address] [place], [address] Cholesterol in HDL [Mass/Vol] 46 mg/dL Normal [facility] Comment on above: Result Comment: Shari onal Cholesterol Education Program (NCEP) guidelines: <40 mg/dL: Low HDL-cholesterol (major risk factor for CHD) >= 60 mg/dL: High HDL-cholesterol (negative risk factor for CHD) HDL-cholesterol is affected by a number of factors, e.g. smoking, exercise, hormones, sex and age. Performed By: #### L 500.4100 #### [facility] [address] [place], [address] Cholesterol in LDL [Mass/Vol] 75 mg/dL Normal [facility] Comment on above: Result Comment: Bord fasaku=296-885 mg/dL Higher Aygv=093 mg/dL or greater Performed By: #### L 500.4100 #### [facility] [address] [place], [address] Cholesterol in VLDL [Mass/Vol] 19 mg/dL Normal 5-40 [facility] Comment on above: Performed By: #### L 500.4100 #### [facility] [address] [place], [address] Triglyceride [Mass/Vol] 97 mg/dL Normal [facility] Comment on above: Result Comment: The drugs N-Acetylcysteine and Metamizole may falsely depress this assay. Normal range: <150 mg/dL Borderline High: 150-199 mg/dL High: 200-499 mg/dL Very High: >500 mg/dL Performed By: #### L 500.4100 #### [facility] [address] [place], [address] MCV (mean corpuscular volume ) determinationOrdered By: Guillaume Javed on 11-17-2024 MCV (RBC) [Entitic vol] 92.4 fL 80-94 [facility] Mean corpuscular hemoglobin (MCH) determinationOrdered By: Guillaume Javed on 11-17-2024 MCH (RBC) [Entitic mass] 30.2 pg 27.0-32.0 [facility] Mean corpuscular hemoglobin concentration (MCHC) determinationOrdered By: Guillaume Javed on 11-17-2024 MCHC (RBC) [Mass/Vol] 32.7 g/dL 32-36 [facility] Mean platelet volume determi nationOrdered By: Guillaume Javed on 11-17-2024 Platelet mean volume (Bld) [Entitic vol] 11.4 fL 6.2-12.0 [facility] Monocyte percentageOrdered B y: Guillaume Butterfieldjonnaguila on 11-17-2024 Monocytes/100 WBC (Bld) 8.3 % 0-10 [facility] Neutrophil percentageOrdered By: [facility] Javed on 11-17-2024 Neutrophils/100 WBC (Bld) 66.2 % 47-70 [facility] Nucleated red blood cell per centageOrdered By: Alondralodge grassfarrah Javed on 11-17-2024 Nucleated RBC/100 WBC (Bld) [Ratio] 0 % 0-5 [facility] PSA,Total - Annual Screenon 11-17-2024 PSA,TOT SCREEN 0.24 ng/mL Normal 0.02-4.00 [facility] Comment on above: Order Comment: DR. Juan Ramon POSADAS ORDERED ALL LABS BUT JUNIE ROMAN ORDERED LIVER Result Comment: This test was performed using the [employer] tPSA method. Measured values of a patient??sample can vary depending on the testing procedure used. PSA values determined on patient samples by different testing procedures cannot be used interchangeably. If there is a change in PSA assays while monitoring therapy, sequential testing should be performed to confirm baseline values. Performed By: #### L 501.9520, L501.9910, L500.4050, L506.0400, L100.0100, L501.4700 #### [facility] [address] [place], [place], [id number] Platelet countOrdered By: Leonora Javed on 11-17-2024 Platelets (Bld) [#/Vol] 140 10*3/uL Low 150-450 [facility] Potassium measurement (mass/ volume)Ordered By: Guillaume Javed on 11-17-2024 Potassium (Unsp spec) [Mass/Vol] 4.4 mmol/L 3.3-5.1 [facility] RBC Auto (Bld) [#/Vol]Ordere d By: Guillaume Javed on 11-17-2024 RBC (Bld) [#/Vol] 4.20 10*6/uL Low 4.6-6.2 [facility] Screening total cholesterol/ high density lipoprotein (HDL) cholesterol ratioOrdered By: Lena Roman on 11-17-2024 Cholesterol.total/Choles terol in HDL [Mass ratio] 3.06 {ratio} [facility] Serum creatinine measurement (mass/volume)Ordered By: Guillaume Javed on 11-17-2024 Creatinine [Mass/Vol] 1.06 mg/dL 0.70-1.20 [facility] Serum globulin measurementOr dered By: Guillaume Javed on 11-17-2024 Globulin (S) [Mass/Vol] 2.7 g/dL 2.2-4.2 [facility] Serum glucose measurement (m ass/volume)Ordered By: Guillaume Javed on 11-17-2024 Glucose [Mass/Vol] 96 mg/dL 70-99 [facility] Serum or plasma alanine castle otransferase (ALT) measurementOrdered By: Guillaume Javed on 11-17-2024 ALT [Catalytic activity/Vol] 32 U/L <47 [facility] Serum or plasma albumin erin urement (mass/volume)Ordered By: Guillaume Javed on 11-17-2024 Albumin [Mass/Vol] 4.1 g/dL 3.4-4.8 [facility] Serum or plasma albumin/glob ulin mass ratioOrdered By: Guillaume Javed on 11-17-2024 Albumin/Globulin [Mass ratio] 1.5 {ratio} 0.9-2.4 [facility] Serum or plasma alkaline eric sphatase measurementOrdered By: Guillaume Javed on 11-17-2024 ALP [Catalytic activity/Vol] 62 U/L 40-129 [facility] Serum or plasma calcium erin urement (mass/volume)Ordered By: Guillaume Javed on 11-17-2024 Calcium [Mass/Vol] 9.2 mg/dL 7.6-11.0 [facility] Serum or plasma cholesterol in HDL measurement (mass/volume)Ordered By: Lena Roman on 11-17-2024 Cholesterol in HDL [Mass/Vol] 46 mg/dL >40 [facility] Comment on above: National Cholesterol Education Program (NCEP) guidelines:<40 mg/dL: Low HDL-cholesterol (major risk factor for CHD)>= 60 mg/dL: High HDL-cholesterol (negative risk factor for CHD)HDL-cholesterol is affected by a number of factors, e.g. smoking, exercise, hormones, sex and age. Serum or plasma cholesterol measurement (mass/volume)Ordered By: Lena Roman on 11-17-2024 Cholesterol [Mass/Vol] 140 mg/dL <201 [facility] Comment on above: Cholesterol level, D esirable <200 mg/dLBorderline high cholesterol 200-239 mg/dLHigh cholesterol >=240 mg/dLRecommendations of the NCEP Adult Treatment Panel for the following risk-cutoff thresholds for the [place] population. Serum or plasma urea nitroge n measurement (mass/volume)Ordered By: Guillaume Javed on 11-17-2024 Urea nitrogen [Mass/Vol] 30 mg/dL High 4-19 [facility] Sodium levelOrdered By: Alondra valentineaguila Tegan on 11-17-2024 Sodium [Moles/Vol] 139 mmol/L 133-145 [facility] T4 Free Directon 11-17-2024 T4 FREE DIRECT 1.10 ng/dL Normal 0.76-1.46 [facility] Comment on above: Order Comment: DR. Juan Ramon POSADAS ORDERED ALL LABS BUT JUNIE ROMAN ORDERED LIVER Performed By: #### L 501.9520, L501.9910, L500.4050, L506.0400, L100.0100, L501.4700 #### [facility] [address] [place], [place], [address] T4 freeOrdered By: Leonoraedsonbrantfarrah Javed on 11-17-2024 Free T4 [Mass/Vol] 1.10 ng/dL 0.76-1.46 [facility] TSH DL <= 0.005 mIU/L QnOrde red By: Guillaume Scoutjonnaguila on 11-17-2024 TSH Qn 3.320 uIU/mL 0.300-4.200 [facility] Thyroid Stim Hormone (TSH)on 11-17-2024 TSH 3.320 uIU/mL Normal 0.300-4.200 [facility] Comment on above: Order Comment: DR. Juan Ramon POSADAS ORDERED ALL LABS BUT BID LENA ROMAN ORDERED LIVER Performed By: #### L 501.9520, L501.9910, L500.4050, L506.0400, L100.0100, L501.4700 #### [facility] [address] [place], [place], [id number] Total proteinOrdered By: Jonathan calvert Scoutjonnaguila on 11-17-2024 Protein [Mass/Vol] 6.8 g/dL 5.9-8.4 [facility] Triglycerides measurementOrd ered By: Lena Roman on 11-17-2024 Triglyceride [Mass/Vol] 97 mg/dL <199 [facility] Comment on above: The drugs N-Acetylcy steine and Metamizole may falsely depress this assay. Normal range: <150 mg/dLBorderline High: 150-199 mg/dLHigh: 200-499 mg/dLVery High: >500 mg/dL White blood cell (WBC) count Ordered By: Leonoraedsonbrantfarrah Javed on 11-17-2024 WBC (Bld) [#/Vol] 8.1 10*3/uL 4.4-11.0 [facility] Internal Medicine Office Vis iton 05-19-2024 Internal Medicine Office Visit [facility] [address] [place] [address] OFFICE VISIT Date of Service: 05/19/24 MR#: [id number] Acct: [id number] Name: HAYDEN CASE Rep #: [id number] : 1945 Provider: FLEX Davis Age/Sex: 78/M Location: [facility] Status: Signed Intake Vital Signs 11/05/23 10:02 12/14/23 08:41 05/19/24 07:54 Height 5 ft 11 in 5 ft 11 in 5 ft 11 in Weight: 241 lb 6 oz BMI 33.6 BP 126/70 H Blood Pressure Location Lt brachial Position Sitting Respiration 16 Pulse 53 L Pulse Source Monitor Temp 97.6 F L Temp Source Temporal Pulse Oximetry (%) 97 Oxygen Delivery Method room air Intake Visit Reasons: 6 M FU Chief Complaint: 6 M FU Security Rep Required: No Accompanied by: Is patient in pain?: No Allergies Penicillins Adverse Reaction (Unknown, Verified 05/19/24 07:46) Extreme Pain Medications ???Medication ???Instructions ???Recorded ???Confirmed ???Type aspirin 81 mg tablet,delayed 81 mg PO DAILY #1 TAB 06/13/20 05/19/24 Rx release omega-3 fatty acids 1,000 mg 1,000 mg PO DAILY 06/13/20 05/19/24 History capsule (Fish Oil Concentrate) polyethylene glycol 3350 17 gram 17 g PO DAILY 07/31/20 05/19/24 History oral powder packet (Miralax) atorvastatin 20 mg tablet 20 mg PO QHS #90 tabs 09/20/23 05/19/24 Rx lansoprazole 30 mg capsule,delayed 30 mg PO DAILY #90 caps 10/07/23 05/19/24 Rx release (Prevacid) tamsulosin 0.4 mg capsule 0.4 mg PO QHS #90 caps 03/17/24 05/19/24 Rx apixaban 5 mg tablet (Eliquis) 5 mg PO BID #180 tabs 04/28/24 05/19/24 Rx metoprolol tartrate 25 mg tablet 12.5 mg (1/2 x 25 mg) PO BID #90 05/02/24 05/19/24 Rx tabs mupirocin 2 % topical ointment 1 applic topical DAILY #22 grams 05/19/24 05/19/24 Rx Have you fallen in the past year?: No PFSH Medical History Low back pain Bilateral hip pain Hypersomnolence Rib pain on left side Bilateral lower extremity edema Ulcer of right lower extremity with fat layer exposed Chronic pain of both ears Abdominal hernia CAD (coronary artery disease) Right knee pain Enlarged prostate Bilateral hydronephrosis Abdominal pain BPH (benign prostatic hyperplasia) Left flank pain Calcific tendinitis of left shoulder Left shoulder pain Aortic root dilatation Atherosclerotic heart disease of [place] coronary artery without angina pectoris Mixed hyperlipidemia GERD (gastroesophageal reflux disease) BPH (benign prostatic hyperplasia) PAD (peripheral artery disease) Non-rheumatic mitral regurgitation Non-rheumatic aortic regurgitation Nonrheumatic aortic (valve) stenosis Essential hypertension Peripheral neuropathy History of DVT (deep vein thrombosis) Surgical History History of ascending aorta repair ( 07/22/20) History of aortic valve replacement with bioprosthetic valve ( 07/22/20) History of coronary artery bypass surgery ( 07/22/20) History of right and left heart catheterization (LHC) ( 06/21/20) History of hernia repair Family History Other Sudden cardiac Social History household members: children housing: house Smoking Status: Former smoker how long ago did patient quit smokin years ago alcohol intake: never substance use type: does not use caffeine: Yes Type: coffee Number of servings: 1 what type of physical activity do you participate in: none do you feel safe at home: Yes HPI HPI Chief Complaint: 6 M FU Details: HAYDEN CASE, is a 78 M who presents to the office today for 6 month checkup of his chronic conditions. He states that he feels good most of the time occasionally feeling sluggish. He has no new concerns or complaints today Patient does not check his BP at home stating that he doesn't have anything to check it with. He states that most of the time its in good shape. He states that he takes his meds regularly unless he forgets which doesn't happen much as he has a weekly pill box that his daughter helps him with. Patient has BPH and states that he still wakes up at night (between 2-3 times a night). He states that when he does have to go he has to go NOW. Patient does follow-p with cardiology for his valve replacement. He is only required to see them annually unless he has symptoms He tries to drink water stating he probably doesn't drink as much as he should He drinks a few cups of coffee a day when he is working He is still active working 4 days a week. He is on his feet a moving around quite a bit ROS Const Constitutional: No body ache, chills, excessive sweating, fatigue, fever(s), frequent falls, headache(s), snoring, weakness or parker (more content not included)... Normal [facility] Echo Completeon 01-14-2024 Echo Complete [facility] [address] [place] [address] Echo Complete 01/14/24815 MR#: [id number] Acct: [id number] Name: HAYDEN CASE Rep #: [id number] : 1945 78 From: Naman Mckeon MD Attending Dr: Dr. Naman Mckeon MD Status: SCOTTY JONES Ordering Dr: Naman Mckeon MD Date: 01/14/24 Location: [facility] Sex: M C Admitted: Reason For Study: VALVE REPLACEMENT Procedure This was a 2D Doppler, Color Flow transthoracic echocardiogram. Exam performed in department. Left Ventricle Normal LV size. Left ventricular systolic function is normal. The left ventricular ejection fraction is 60 %. Stage 1 diastolic dysfunction. No regional wall motion abnormalities noted. Right Ventricle Normal RV size. Normal systolic function. Atria The left atrium is mildly enlarged. The right atrium is mildly enlarged. Tricuspid Valve Normal tricuspid valve. Mild (1+) tricuspid valve insufficiency. Pulmonary artery systolic pressure is 34 mmHg. Aortic Valve Peak aortic valve gradient 35 mmHg. Mean aortic valve gradient 20 mmHg. Normal prosthetic aortic valve. Pulmonic Valve Normal pulmonic valve. Great Vessels Mild to moderately dilated aortic root. The pulmonary artery is normal size. Inferior vena cava collapse with respiration. Pericardium/Pleural No pericardial effusion. MMode/2D Measurements Calculations LVOT diam: 2.0 cm Ao root diam: 4.1 cm LAV(MOD-bp): 78.5 ml LVOT area: 3.1 cm2 LAV(MOD-bp) Indexed: 34.4 ml/m2 LAV(MOD-sp2): 74.2 ml LAV(MOD-sp4): 75.4 ml LVAd ap4: 32.9 cm2 SV(MOD-sp4): 76.9 ml SV(sp4-el): 82.0 ml LVLd ap4: 8.1 cm EDV(MOD-sp4): 109.1 ml EDV(sp4-el): 113.1 ml LVAs ap4: 15.9 cm2 LVLs ap4: 6.9 cm ESV(MOD-sp4): 32.2 ml ESV(sp4-el): 31.1 ml EF(MOD-sp4): 70.5 % EF(sp4-el): 72.5 % LA A4 area: 24.5 cm2 LA dimension(2D): 5.4 cm RA A4 area: 23.2 cm2 Time Measurements MV dec time: 0.24 sec Doppler Measurements Calculations MV E max latoya: 91.9 cm/sec Lat Peak E' Latoya: 10.6 cm/sec Med Peak E' Latoya: 5.8 cm/sec MV A max latoya: 104.4 cm/sec E/E' lat: 8.7 E/E' med: 15.8 MV E/A: 0.88 MV V2 max: 108.8 cm/sec Ao V2 max: 295.6 cm/sec MV max P.7 mmHg MV dec slope: 387.7 cm/sec2 Ao max P.0 mmHg MV V2 mean: 62.8 cm/sec Ao V2 mean: 212.3 cm/sec MV mean P.8 mmHg Ao mean P.6 mmHg MV V2 VTI: 45.1 cm Ao V2 VTI: 72.2 cm AV (velocity ratio): 0.50 MVA(VTI): 2.5 cm2 EVERARDO(I,D): 1.6 cm2 EVERARDO(V,D): 1.5 cm2 LV V1 max: 140.8 cm/sec SV(LVOT): 112.2 ml TR max latoya: 279.0 cm/sec LV V1 max P.9 mmHg TR max P.1 mmHg LV V1 mean P.0 mmHg LV V1 mean: 106.6 cm/sec LV V1 VTI: 35.9 cm ECHO/Echo Complete Interpretation Summary Normal LV size. Left ventricular systolic function is normal. The left ventricular ejection fraction is 60 %. Stage 1 diastolic dysfunction. Pulmonary artery systolic pressure is 34 mmHg. Mean aortic valve gradient 20 mmHg. Normal prosthetic aortic valve. __ Ordering Physician: Naman Mckeon Referring Physician: Naman Mckeon Performed By: Terra Meyer RCS 01/14/2446 Date Naman Mckeon MD CC: Dr. Naman Mckeon MD; Dr. Guillaume Javed MD Date Dictated: 01/14/24815 Date Transcribed: 01/14/24945 Career Services Assistant: Signed Normal [facility] Absolute lymphocyte countOrd ered By: Guillaume Galeanoaguila on 06-18-2023 Lymphocytes Auto (Unsp spec) [#/Vol] 1.59 10*3/uL 0.83-4.51 [facility] Basophil percentageOrdered B y: Guillaume Javed on 06-18-2023 Basophils/100 WBC (Bld) 0.4 % 0-1 [facility] Chloride [Moles/Vol] 105 mmol/L 98-107 [facility] Eosinophils/100 WBC (Bld) 9.5 % 0-5 [facility] Glucose [Mass/Vol] 115 mg/dL 74-106 [facility] Comment on above: Fasting Glucose resu lt from 100 to 125 mg/dL suggests IMPAIRED HOMEOSTASIS per A.D.A. criteria. Neutrophils (Bld) [#/Vol] 3.9 10*3/uL 2.0-7.7 [facility] Neutrophils/100 WBC (Bld) 57.3 % 47-70 [facility] Potassium [Moles/Vol] 4.5 mmol/L 3.5-5.1 [facility] Sodium [Moles/Vol] 141 mmol/L 136-145 [facility] WBC (Bld) [#/Vol] 6.7 10*3/uL 4.4-11.0 [facility] Basophil percentageOrdered B y: Lena Jessie on 06-18-2023 Bilirubin [Mass/Vol] 0.50 mg/dL 0.20-1.00 [facility] Comment on above: For patients on eltr ombopag therapy, use of [employer] [place] TBIL is not recommended. Cholesterol [Mass/Vol] 130 mg/dL <200 [facility] Comment on above: <200 mg/dL Desirable 200-240 mg/dL Borderline >240 mg/dL High Risk Protein [Mass/Vol] 7.6 g/dL 6.4-8.2 [facility] Triglyceride [Mass/Vol] 156 mg/dL <199 [facility] Comment on above: The drugs N-Acetylcy steine and Metamizole may falsely depress this assay.Serum Triglycerides Reference Interval Normal <150 mg/dL Borderline high 150 - 199 mg/dL High 200 - 499 mg/dL Very High > or = 500 mg/dL Blood erythrocytes count (nu mber/volume)Ordered By: Guillaume Javed on 06-18-2023 RBC (Bld) [#/Vol] 4.74 10*6/uL 4.6-6.2 [facility] Blood hemoglobin measurement (mass/volume)Ordered By: Guillaume Javed on 06-18-2023 Hemoglobin (Bld) [Mass/Vol] 14.2 g/dL 13.0-16.5 [facility] Blood lymphocytes/100 leukoc ytesOrdered By: Guillaume Javed on 06-18-2023 Lymphocytes/100 WBC (Bld) 23.6 % 19-41 [facility] Blood monocytes/100 leukocyt esOrdered By: Guillaume Javed on 06-18-2023 Monocytes/100 WBC (Bld) 9.1 % 0-10 [facility] Blood platelet mean volumeOr dered By: Guillaume Javed on 06-18-2023 Platelet mean volume (Bld) [Entitic vol] 11.4 fL 6.2-12.0 [facility] Determination of erythrocyte mean corpuscular volume (MCV)Ordered By: Guillaume Javed on 06-18-2023 MCV (RBC) [Entitic vol] 94.3 fL 80-94 [facility] Direct bilirubinOrdered By: Lena Roman on 06-18-2023 Bilirubin.direct [Mass/Vol] 0.15 mg/dL 0.00-0.30 [facility] Hematocrit Auto (Bld) [Volum e fraction]Ordered By: Guillaume Javed on 06-18-2023 Hematocrit (Bld) [Volume fraction] 44.7 % 40-54 [facility] Laboratory - Chemistry and C hemistry - challengeOrdered By: Lena Roman on 06-18-2023 ALP [Catalytic activity/Vol] 70 U/L 45-117 [facility] ALT [Catalytic activity/Vol] 27 U/L 16-61 [facility] Globulin (S) [Mass/Vol] 3.9 g/dL 2.2-4.2 [facility] Laboratory - Chemistry and C hemistry - challengeOrdered By: Guillaume Javed on 06-18-2023 CO2 [Moles/Vol] 31.0 mmol/L 21.0-32.0 [facility] Urea nitrogen/Creatinine [Mass ratio] 23.9 mg/mg 10-20 [facility] Laboratory - Hematology and Cell countsOrdered By: Guillaume Javed on 06-18-2023 Erythrocyte distribution width (RBC) [Entitic vol] 46.8 fL 35.1-43.9 [facility] Erythrocyte distribution width (RBC) [Ratio] 13.6 % 11.6-14.6 [facility] Immature granulocytes/100 WBC (Bld) 0.100 % 0.0-0.9 [facility] Comment on above: IG% - Immature Granu locytes (promyelocytes, myelocytes and metamyelocytes) > 1% indicates that a LEFT SHIFT is Present. MCH (RBC) [Entitic mass] 30.0 pg 27.0-32.0 [facility] Nucleated RBC/100 WBC (Bld) [Ratio] 0 % 0-5 [facility] MCHC Auto (RBC) [Mass/Vol]Or dered By: Guillaume Javed on 06-18-2023 MCHC (RBC) [Mass/Vol] 31.8 g/dL 32-36 [facility] No Panel InformationOrdered By: Guillaume Javed on 06-18-2023 Estimated GFR (MDRD) Amer 77 mL/min >60 [facility] Comment on above: GFR Calc Estimated GFR (MDRD) Non-Af Amer 64 mL/min >60 [facility] Comment on above: Non- GFR Calc Prostate Specific Antigen Screen 0.31 ng/mL 0.00-4.00 [facility] Comment on above: This test was perfor med using the TPSA assay method for the[employer] chemistry system. Values obtained with differentassay methods cannot be used interchangably.When changing PSA assays in the course of monitoring apatient, additional sequential testing should be carriedout to confirm baseline values. Platelets bldOrdered By: Jonathan Javed on 06-18-2023 Platelets (Bld) [#/Vol] 168 10*3/uL 150-450 [facility] Serum or plasma albumin erin urement (mass/volume)Ordered By: Lena Roman on 06-18-2023 Albumin [Mass/Vol] 3.7 g/dL 3.2-5.0 [facility] Serum or plasma calcium erin urement (mass/volume)Ordered By: Guillaume Javed on 06-18-2023 Calcium [Mass/Vol] 9.7 mg/dL 8.5-10.1 [facility] Serum or plasma cholesterol in HDL measurement (mass/volume)Ordered By: Lena Roman on 06-18-2023 Cholesterol in HDL [Mass/Vol] 45 mg/dL >40 [facility] Comment on above: The drugs N-Acetylcy steine and Metamizole may falsely depress this assay. Reference Range HDL <40 mg/dL Low HDL Cholesterol HDL >or= 60 mg/dL High HDL Cholesterol Serum or plasma cholesterol in VLDL measurement (mass/volume)Ordered By: Lena Roman on 06-18-2023 Cholesterol in VLDL [Mass/Vol] 31 mg/dL 5-40 [facility] Serum or plasma creatinine m easurement (mass/volume)Ordered By: Guillaume Javed on 06-18-2023 Creatinine [Mass/Vol] 1.17 mg/dL 0.70-1.30 [facility] Comment on above: The validity of the calculated GFR & GFRAA in patients over 70 years has not been determined. Clinical correlation is essential. Serum or plasma low density lipoprotein (LDL) cholesterol measurement (mass/volume)Ordered By: Lena Roman on 06-18-2023 Cholesterol in LDL [Mass/Vol] 54 mg/dL 0-130 [facility] Serum or plasma urea nitroge n measurement (mass/volume)Ordered By: Guillaume Javed on 06-18-2023 Urea nitrogen [Mass/Vol] 28 mg/dL 7-18 [facility] Thin prep Papanicolaou smear with manual screeningOrdered By: Lena Roman on 06-18-2023 Thin prep Papanicolaou smear with manual screening 28 U/L 15-37 [facility] Thin prep Papanicolaou smear with manual screeningOrdered By: Guillaume Javed on 06-18-2023 Thin prep Papanicolaou smear with manual screening 5 5-15 [facility] Basophil percentageOrdered B y: Lena Roman on 10-02-2022 Bilirubin [Mass/Vol] 0.60 mg/dL 0.20-1.00 [facility] Comment on above: For patients on eltr ombopag therapy, use of [employer] [place] TBIL is not recommended. Cholesterol [Mass/Vol] 149 mg/dL <200 [facility] Comment on above: <200 mg/dL Desirable 200-240 mg/dL Borderline >240 mg/dL High Risk Protein [Mass/Vol] 8.1 g/dL 6.4-8.2 [facility] Triglyceride [Mass/Vol] 159 mg/dL <199 [facility] Comment on above: The drugs N-Acetylcy steine and Metamizole may falsely depress this assay.Serum Triglycerides Reference Interval Normal <150 mg/dL Borderline high 150 - 199 mg/dL High 200 - 499 mg/dL Very High > or = 500 mg/dL Direct bilirubinOrdered By: Lena Roman on 10-02-2022 Bilirubin.direct [Mass/Vol] 0.20 mg/dL 0.00-0.30 [facility] Laboratory - Chemistry and C hemistry - challengeOrdered By: Lena Roman on 10-02-2022 ALP [Catalytic activity/Vol] 84 U/L 45-117 [facility] ALT [Catalytic activity/Vol] 33 U/L 16-61 [facility] Globulin (S) [Mass/Vol] 4.4 g/dL 2.2-4.2 [facility] Serum or plasma albumin erin urement (mass/volume)Ordered By: Lena Roman on 10-02-2022 Albumin [Mass/Vol] 3.7 g/dL 3.2-5.0 [facility] Serum or plasma cholesterol in HDL measurement (mass/volume)Ordered By: Lena Roman on 10-02-2022 Cholesterol in HDL [Mass/Vol] 47 mg/dL >40 [facility] Comment on above: The drugs N-Acetylcy steine and Metamizole may falsely depress this assay. Reference Range HDL <40 mg/dL Low HDL Cholesterol HDL >or= 60 mg/dL High HDL Cholesterol Serum or plasma cholesterol in VLDL measurement (mass/volume)Ordered By: Lena Roman on 10-02-2022 Cholesterol in VLDL [Mass/Vol] 32 mg/dL 5-40 [facility] Serum or plasma low density lipoprotein (LDL) cholesterol measurement (mass/volume)Ordered By: Lena Roman on 10-02-2022 Cholesterol in LDL [Mass/Vol] 70 mg/dL 0-130 [facility] Thin prep Papanicolaou smear with manual screeningOrdered By: Lena Roman on 10-02-2022 Thin prep Papanicolaou smear with manual screening 35 U/L 15-37 [facility] Absolute lymphocyte countOrd ered By: Dr. Javed on 07-31-2022 Lymphocytes Auto (Unsp spec) [#/Vol] 1.60 10*3/uL 0.83-4.51 [facility] Basophil percentageOrdered B y: Dr. Javed on 07-31-2022 Basophils/100 WBC (Bld) 0.3 % 0-1 [facility] Bilirubin [Mass/Vol] 0.70 mg/dL 0.20-1.00 [facility] Comment on above: For patients on eltr ombopag therapy, use of [employer] [place] TBIL is not recommended. Chloride [Moles/Vol] 105 mmol/L 98-107 [facility] Eosinophils/100 WBC (Bld) 7.4 % 0-5 [facility] Glucose [Mass/Vol] 107 mg/dL 74-106 [facility] Comment on above: Fasting Glucose resu lt from 100 to 125 mg/dL suggests IMPAIRED HOMEOSTASIS per A.D.A. criteria. Neutrophils (Bld) [#/Vol] 4.5 10*3/uL 2.0-7.7 [facility] Neutrophils/100 WBC (Bld) 61.8 % 47-70 [facility] Potassium [Moles/Vol] 4.4 mmol/L 3.5-5.1 [facility] Protein [Mass/Vol] 7.6 g/dL 6.4-8.2 [facility] Sodium [Moles/Vol] 139 mmol/L 136-145 [facility] WBC (Bld) [#/Vol] 7.3 10*3/uL 4.4-11.0 [facility] Blood erythrocytes count (nu mber/volume)Ordered By: Dr. Javed on 07-31-2022 RBC (Bld) [#/Vol] 4.73 10*6/uL 4.6-6.2 [facility] Blood hemoglobin measurement (mass/volume)Ordered By: Dr. Javed on 07-31-2022 Hemoglobin (Bld) [Mass/Vol] 13.8 g/dL 13.0-16.5 [facility] Blood lymphocytes/100 leukoc ytesOrdered By: Dr. Javed on 07-31-2022 Lymphocytes/100 WBC (Bld) 22.0 % 19-41 [facility] Blood monocytes/100 leukocyt esOrdered By: Dr. Javed on 07-31-2022 Monocytes/100 WBC (Bld) 8.4 % 0-10 [facility] Blood platelet mean volumeOr dered By: Dr. Javed on 07-31-2022 Platelet mean volume (Bld) [Entitic vol] 10.9 fL 6.2-12.0 [facility] Determination of erythrocyte mean corpuscular volume (MCV)Ordered By: Dr. Javed on 07-31-2022 MCV (RBC) [Entitic vol] 91.3 fL 80-94 [facility] Hematocrit Auto (Bld) [Volum e fraction]Ordered By: Dr. Javed on 07-31-2022 Hematocrit (Bld) [Volume fraction] 43.2 % 40-54 [facility] Laboratory - Chemistry and C hemistry - challengeOrdered By: Dr. Javed on 07-31-2022 ALP [Catalytic activity/Vol] 64 U/L 45-117 [facility] ALT [Catalytic activity/Vol] 26 U/L 16-61 [facility] CO2 [Moles/Vol] 28.0 mmol/L 21.0-32.0 [facility] Globulin (S) [Mass/Vol] 4.0 g/dL 2.2-4.2 [facility] Urea nitrogen/Creatinine [Mass ratio] 21.6 mg/mg 10-20 [facility] Laboratory - Hematology and Cell countsOrdered By: Dr. Javed on 07-31-2022 Erythrocyte distribution width (RBC) [Entitic vol] 47.5 fL 35.1-43.9 [facility] Erythrocyte distribution width (RBC) [Ratio] 14.0 % 11.6-14.6 [facility] Immature granulocytes/100 WBC (Bld) 0.100 % 0.0-0.9 [facility] Comment on above: IG% - Immature Granu locytes (promyelocytes, myelocytes and metamyelocytes) > 1% indicates that a LEFT SHIFT is Present. MCH (RBC) [Entitic mass] 29.2 pg 27.0-32.0 [facility] Nucleated RBC/100 WBC (Bld) [Ratio] 0 % 0-5 [facility] MCHC Auto (RBC) [Mass/Vol]Or dered By: Dr. Javed on 07-31-2022 MCHC (RBC) [Mass/Vol] 31.9 g/dL 32-36 [facility] No Panel InformationOrdered By: Dr. Javed on 07-31-2022 Estimated GFR (MDRD) Amer 78 mL/min >60 [facility] Comment on above: GFR Calc Estimated GFR (MDRD) Non-Af Amer 65 mL/min >60 [facility] Comment on above: Non- GFR Calc Platelets bldOrdered By: Dr. Javed on 07-31-2022 Platelets (Bld) [#/Vol] 164 10*3/uL 150-450 [facility] Serum or plasma albumin erin urement (mass/volume)Ordered By: Dr. Javed on 07-31-2022 Albumin [Mass/Vol] 3.6 g/dL 3.2-5.0 [facility] Serum or plasma albumin/glob ulin mass ratioOrdered By: Dr. Javed on 07-31-2022 Albumin/Globulin [Mass ratio] 0.9 {ratio} 0.9-2.4 [facility] Serum or plasma calcium erin urement (mass/volume)Ordered By: Dr. Javed on 07-31-2022 Calcium [Mass/Vol] 9.2 mg/dL 8.5-10.1 [facility] Serum or plasma creatinine m easurement (mass/volume)Ordered By: Dr. Javed on 07-31-2022 Creatinine [Mass/Vol] 1.16 mg/dL 0.70-1.30 [facility] Comment on above: The validity of the calculated GFR & GFRAA in patients over 70 years has not been determined. Clinical correlation is essential. Serum or plasma urea nitroge n measurement (mass/volume)Ordered By: Dr. Javed on 07-31-2022 Urea nitrogen [Mass/Vol] 25 mg/dL 7-18 [facility] Thin prep Papanicolaou smear with manual screeningOrdered By: Dr. Javed on 07-31-2022 Thin prep Papanicolaou smear with manual screening 27 U/L 15-37 [facility] Thin prep Papanicolaou smear with manual screening 6 5-15 [facility] Basophil percentageon 2021 Chloride [Moles/Vol] 104 mmol/L 98-107 [facility] Work Phone: Glucose [Mass/Vol] 119 mg/dL 74-106 [facility] Work Phone: Comment on above: Fasting Glucose resu lt from 100 to 125 mg/dL suggests IMPAIRED HOMEOSTASIS per A.D.A. criteria. Potassium [Moles/Vol] 4.4 mmol/L 3.5-5.1 [facility] Work Phone: Sodium [Moles/Vol] 137 mmol/L 136-145 [facility] Work Phone: Laboratory - Chemistry and C hemistry - challengeon 01-16-2022 CO2 [Moles/Vol] 27.0 mmol/L 21.0-32.0 [facility] Work Phone: Urea nitrogen/Creatinine [Mass ratio] 19.0 mg/mg 10-20 [facility] Work Phone: No Panel Informationon 01-16 Estimated GFR (MDRD) Amer 78 mL/min >60 [facility] Work Phone: Comment on above: GFR Calc Estimated GFR (MDRD) Non-Af Amer 65 mL/min >60 [facility] Work Phone: Comment on above: Non- GFR Calc Prostate Specific Antigen Total 0.24 ng/mL 0.0-4.0 [facility] Work Phone: Comment on above: This test was perfor med using the TPSA assay method for [employer] chemistry system. Values obtained with differentassay methods cannot be used interchangably.When changing PSA assays in the course of monitoring apatient, additional sequential testing should be carriedout to confirm baseline values. Serum or plasma calcium erin urement (mass/volume)on 01-16-2022 Calcium [Mass/Vol] 9.3 mg/dL 8.5-10.1 [facility] Work Phone: Serum or plasma creatinine m easurement (mass/volume)on 01-16-2022 Creatinine [Mass/Vol] 1.16 mg/dL 0.70-1.30 [facility] Work Phone: Comment on above: The validity of the calculated GFR & GFRAA in patients over 70 years has not been determined. Clinical correlation is essential. Serum or plasma urea nitroge n measurement (mass/volume)on 01-16-2022 Urea nitrogen [Mass/Vol] 22 mg/dL 7-18 [facility] Work Phone: Thin prep Papanicolaou smear with manual screeningon 01-16-2022 Thin prep Papanicolaou smear with manual screening 6 5-15 [facility] Work Phone: Basophil percentageon 2021 Bilirubin [Mass/Vol] 0.60 mg/dL 0.20-1.00 [facility] Work Phone: Comment on above: For patients on eltr ombopag therapy, use of [employer] [place] TBIL is not recommended. Cholesterol [Mass/Vol] 148 mg/dL <200 [facility] Work Phone: Comment on above: <200 mg/dL Desirable 200-240 mg/dL Borderline >240 mg/dL High Risk Protein [Mass/Vol] 7.8 g/dL 6.4-8.2 [facility] Work Phone: Triglyceride [Mass/Vol] 175 mg/dL <199 [facility] Work Phone: Comment on above: The drugs N-Acetylcy steine and Metamizole may falsely depress this assay.Serum Triglycerides Reference Interval Normal <150 mg/dL Borderline high 150 - 199 mg/dL High 200 - 499 mg/dL Very High > or = 500 mg/dL Direct bilirubinon 2 Bilirubin.direct [Mass/Vol] 0.15 mg/dL 0.00-0.30 [facility] Work Phone: Laboratory - Chemistry and C hemistry - challengeon 11-28-2021 ALP [Catalytic activity/Vol] 70 U/L 45-117 [facility] Work Phone: ALT [Catalytic activity/Vol] 33 U/L 16-61 [facility] Work Phone: Globulin (S) [Mass/Vol] 4.1 g/dL 2.2-4.2 [facility] Work Phone: Serum or plasma albumin erin urement (mass/volume)on 11-28-2021 Albumin [Mass/Vol] 3.7 g/dL 3.2-5.0 [facility] Work Phone: Serum or plasma cholesterol in HDL measurement (mass/volume)on 11-28-2021 Cholesterol in HDL [Mass/Vol] 46 mg/dL >40 [facility] Work Phone: Comment on above: The drugs N-Acetylcy steine and Metamizole may falsely depress this assay. Reference Range HDL <40 mg/dL Low HDL Cholesterol HDL >or= 60 mg/dL High HDL Cholesterol Serum or plasma cholesterol in VLDL measurement (mass/volume)on 11-28-2021 Cholesterol in VLDL [Mass/Vol] 35 mg/dL 5-40 [facility] Work Phone: Serum or plasma low density lipoprotein (LDL) cholesterol measurement (mass/volume)on 11-28-2021 Cholesterol in LDL [Mass/Vol] 67 mg/dL 0-130 [facility] Work Phone: Thin prep Papanicolaou smear with manual screeningon 11-28-2021 Thin prep Papanicolaou smear with manual screening 34 U/L 15-37 [facility] Work Phone: CNCOon 12-24-2020 CNCO Letter Text Normal [facility] CNPNon 12-24-2020 CNPN Telephone (CARDUM) ---- HAYDEN CASE ([id number]) 1945 Date Time Provider Department 12/24/20 MICHELINE ORDOÑEZ During your visit today, we recorded the following information about you: Morgan Hernan 12/24/2020 12:51 PM Signed Patient was scheduled with Dr Mojica today and missed the appointment. Called to reschedule and had to leave a message Viktoriya Bell 12/24/2020 3:10 PM Signed First no show letter sent. Viktoriya Bell Allergies As of Date: 12/24/2020 Noted Allergy Reaction PENICILLINS 12/21/2019 16 - Unknown Comments: swelling in legs Date Reviewed: 07/29/2020 Reviewed by: Iris (Rn) CANDACE Pradhan - Fully Assessed Reason for Visit: No Show [1558] Prescriptions as of 12/24/2020 - acetaminophen (TYLENOL) 325 mg tablet Take 2 tablets by mouth every 4 hours as needed for Pain or Fever. - metoprolol tartrate, short acting, (LOPRESSOR) 25 mg tablet Take a half tablet by mouth twice daily. - polyethylene glycol 3350 (MIRALAX, GLYCOLAX) 17 gram/dose powder Take 17 g by mouth once daily. - atorvastatin (LIPITOR) 20 mg tablet Take 20 mg by mouth daily at bedtime. - ASPIRIN ORAL Take 81 mg by mouth once daily. - pantoprazole DR (PROTONIX) 40 mg tablet Take 40 mg by mouth once daily. - tamsulosin ER (FLOMAX) 0.4 mg Take 0.4 mg by mouth. - warfarin (COUMADIN) 4 mg tablet Take 4 mg by mouth daily as directed. 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* 07/25/2020 Cellulitis [L03.90] 07/26/2020 Venous insufficiency [I87.2] 07/25/2020 Discharge planning issues [Z02.9] 07/19/2020 07/26/2020 Preop testing [Z01.818] 07/19/2020 07/25/2020 Ectatic aorta (HCC) [I77.819] 07/22/2020 On mechanically assisted ventilation (HCC) [Z99*07/22/2020 07/23/2020 Postoperative pain [G89.18] 07/22/2020 07/25/2020 Stress hyperglycemia [R73.9] 07/22/2020 07/26/2020 Postoperative hypotension [I95.89] 07/22/2020 07/24/2020 Atelectasis [J98.11] 07/23/2020 Hypovolemia [E86.1] 07/23/2020 07/24/2020 Thrombocytopenia (HCC) [D69.6] 07/24/2020 07/26/2020 Fluid overload [E87.70] 07/25/2020 Encounter for support and coordination of trans*07/26/2020 Benign hypertension [I10] Aortic stenosis [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 He did not want to reschedule at this time. He stated that he feels good. I did inform him that the office would not be able to process refill requests until an appointment was made due to missing 1 year appointment. He was fine with that. I asked him to call the office and schedule an appointment when he needs refills. Luisa Brown December 24, 2020 2:04 PM Allergies As of Date: 12/24/2020 Noted Allergy Reaction PENICILLINS 12/21/2019 16 - Unknown Comments: swelling in legs Date Reviewed: 07/29/2020 Reviewed by: Iris (Rn) CANDACE Pradhan - Fully Assessed Reason for Visit: Missed Appointment [1304] Prescriptions as of 12/24/2020 - acetaminophen (TYLENOL) 325 mg tablet Take 2 tablets by mouth every 4 hours as needed for Pain or Fever. - metoprolol tartrate, short acting, (LOPRESSOR) 25 mg tablet Take a half tablet by mouth twice daily. - polyethylene glycol 3350 (MIRALAX, GLYCOLAX) 17 gram/dose powder Take 17 g by mouth once daily. - atorvastatin (LIPITOR) 20 mg tablet Take 20 mg by mouth daily at bedtime. - ASPIRIN ORAL Take 81 mg by mouth once daily. - pantoprazole DR (PROTONIX) 40 mg tablet Take 40 mg by mouth once daily. - tamsulosin ER (FLOMAX) 0.4 mg Take 0.4 mg by mouth. - warfarin (COUMADIN) 4 mg tablet Take 4 mg by mouth daily as directed. Problem List As Of Date 12/24/2020 Noted Resolved Aortic stenosis [I35.0] 07/25/2020 Benign hypertension [I10] 07/25/2020 BPH (benign prostatic hyperplasia) [N40.0] Diastolic dysfunction [I51.89] ED (erectile dysfunction) [N52.9] GERD (gastroesophageal reflux disease) [K21.9] H/O echocardiogram [Z92.89] 11/23/2018 07/26/2020 History of DVT (deep vein thrombosis) [Z86.718] History of stress test [Z92.89] 06/24/2015 07/26/2020 LVH (left ventricular hypertrophy) [I51.7] Murmur [R01.1] 07/26/2020 halfway current use of anticoagulants with IN* 07/25/2020 Cellulitis [L03.90] 07/26/2020 Venous insufficiency [I87.2] 07/25/2020 Discharge planning issues [Z02.9] 07/19/2020 07/26/2020 Preop testing [Z01.818] 07/19/2020 07/25/2020 Ectatic aorta (HCC) [I77.819] 07/22/2020 On mechanically assisted ventilation (HCC) [Z99*07/22/2020 07/23/2020 Postoperative pain [G89.18] 07/22/2020 07/25/2020 Stress hyperglycemia [R73.9] 07/22/2020 07/26/2020 Postoperative hypotension [I95.89] 07/22/2020 07/24/2020 Atelectasis [J98.11] 07/23/2020 Hypovolemia [E86.1] 07/23/2020 07/24/2020 Thrombocytopenia (HCC) [D69.6] 07/24/2020 07/26/2020 Fluid overload [E87.70] 07/25/2020 Encounter for support and coordination of trans*07/26/2020 Benign hypertension [I10] Aortic stenosis [I35.0] halfway current use of anticoagulants with IN* Venous insufficiency [I87.2] Encounter Status:Closed by LUISA BROWN on 12/24/[address] [facility] LABORATORYOrdered By: Rebekah Grubbs on 11-22-2020 INR Coag (PPP) [Relative time] 1.7 {INR} Invalid Interpretation Code 0.9 - 1.2 ratio AO Coag SS PT Coag (PPP) [Time] 19.6 s Invalid Interpretation Code 9.7 - 14.7 seconds AO Coag SS PROon 11-22-2020 INR Coag (PPP) [Relative time] 1.7 {INR} High 0.9-1.2 [facility] ([place]) Comment on above: Result Comment: Mike dard Dose 2.0 - 3.0 High Dose 2.5 - 3.5 The recommended therapeutic range for oral anticoagulant therapy is: LOW RISK: Prophylaxis of venous thrombosis INR: 2.0 - 3.0 Treatment of pulmonary embolism 2.0 - 3.0 Prevention of systemic embolism 2.0 - 3.0 HIGH RISK: Mechanical prosthetic valves 2.5 - 3.5 Performed By: #### P RO #### [place] [address] PT Coag (PPP) [Time] 19.6 s High 9.7-14.7 [facility] ([place]) Comment on above: Performed By: #### P RO #### [place] [address] LABORATORYOrdered By: Rebekah Grubbs on 10-25-2020 INR Coag (PPP) [Relative time] 1.5 {INR} Invalid Interpretation Code 0.9 - 1.2 ratio AO Coag SS PT Coag (PPP) [Time] 17.1 s Invalid Interpretation Code 9.7 - 14.7 seconds AO Coag SS PROon 10-25-2020 INR Coag (PPP) [Relative time] 1.5 {INR} High 0.9-1.2 [facility] ([place]) Comment on above: Result Comment: Mike dard Dose 2.0 - 3.0 High Dose 2.5 - 3.5 The recommended therapeutic range for oral anticoagulant therapy is: LOW RISK: Prophylaxis of venous thrombosis INR: 2.0 - 3.0 Treatment of pulmonary embolism 2.0 - 3.0 Prevention of systemic embolism 2.0 - 3.0 HIGH RISK: Mechanical prosthetic valves 2.5 - 3.5 Performed By: #### G FR, ANEU, LIPID, CMP, ADIFF, TSH, CBC #### [address] [address] PT Coag (PPP) [Time] 17.1 s High 9.7-14.7 [facility] ([place]) Comment on above: Performed By: #### G FR, ANEU, LIPID, CMP, ADIFF, TSH, CBC #### [place] [address] LABORATORYOrdered By: Stephani Wyatt on 10-11-2020 INR Coag (PPP) [Relative time] 3.5 {INR} Invalid Interpretation Code 0.9 - 1.2 ratio AO Coag SS PT Coag (PPP) [Time] 39.2 s Invalid Interpretation Code 9.7 - 14.7 seconds AO Coag SS PROon 10-11-2020 INR Coag (PPP) [Relative time] 3.5 {INR} High 0.9-1.2 [facility] ([place]) Comment on above: Result Comment: Mike dard Dose 2.0 - 3.0 High Dose 2.5 - 3.5 The recommended therapeutic range for oral anticoagulant therapy is: LOW RISK: Prophylaxis of venous thrombosis INR: 2.0 - 3.0 Treatment of pulmonary embolism 2.0 - 3.0 Prevention of systemic embolism 2.0 - 3.0 HIGH RISK: Mechanical prosthetic valves 2.5 - 3.5 Performed By: #### G FR, ANEU, LIPID, CMP, ADIFF, TSH, CBC #### [place] [id number] PT Coag (PPP) [Time] 39.2 s High 9.7-14.7 [facility] ([place]) Comment on above: Performed By: #### G FR, ANEU, LIPID, CMP, ADIFF, TSH, CBC #### [place] [id number] CNPNon 10-07-2020 [facility] Telephone (HVICTR) ---- HAYDEN CASE ([id number]) 1945 Date Time Provider Department 10/07/20 SHARLENE LO HVICTR During your visit today, we recorded the following information about you: Sharlene Lo RN 10/07/2020 8:35 AM Signed [facility] Contact Center Follow Up Phone Encounter Date: October 07, 2020 Time: 8:30 AM Service Provider: Cardiac Surgery Shahnaz Castillo M.D. Reason for call: Follow up Comments: Pt feels that his progress is slow, but he does seem improvement. 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 Sharlene Lo RN Allergies As of Date: 10/07/2020 Noted Allergy Reaction PENICILLINS 12/21/2019 16 - Unknown Comments: swelling in legs Date Reviewed: 07/29/2020 Reviewed by: Iris (Rn) CANDACE Pradhan - Fully Assessed Reason for Visit: Post Dc Program Call - [[id number]] Prescriptions as of 10/07/2020 Sig: ACETAMINOPHEN 325 MG TABLET Take 2 tablets by mouth every* METOPROLOL TARTRATE 25 MG TAB* Take a half tablet by mouth t* POLYETHYLENE GLYCOL 3350 17 G* Take 17 g by mouth once daily. ATORVASTATIN 20 MG TABLET Take 20 mg by mouth daily at * ASPIRIN ORAL Take 81 mg by mouth once endy* PANTOPRAZOLE 40 MG TABLET,DEL* Take 40 mg by mouth once endy* TAMSULOSIN 0.4 MG CAPSULE Take 0.4 mg by mouth. WARFARIN 4 MG TABLET Take 4 mg by mouth daily as d* Problem List As Of Date 10/07/2020 Noted Resolved Aortic stenosis [I35.0] 07/25/2020 Benign hypertension [I10] 07/25/2020 BPH (benign prostatic hyperplasia) [N40.0] Diastolic dysfunction [I51.89] ED (erectile dysfunction) [N52.9] GERD (gastroesophageal reflux disease) [K21.9] H/O echocardiogram [Z92.89] 11/23/2018 07/26/2020 History of DVT (deep vein thrombosis) [Z86.718] History of stress test [Z92.89] 06/24/2015 07/26/2020 LVH (left ventricular hypertrophy) [I51.7] Murmur [R01.1] 07/26/2020 halfway current use of anticoagulants with IN* 07/25/2020 Cellulitis [L03.90] 07/26/2020 Venous insufficiency [I87.2] 07/25/2020 Discharge planning issues [Z02.9] 07/19/2020 07/26/2020 Preop testing [Z01.818] 07/19/2020 07/25/2020 CAD (coronary artery disease), [place] coronary *07/19/2020 Ectatic aorta (HCC) [I77.819] 07/22/2020 On mechanically assisted ventilation (HCC) [Z99*07/22/2020 07/23/2020 Postoperative pain [G89.18] 07/22/2020 07/25/2020 Stress hyperglycemia [R73.9] 07/22/2020 07/26/2020 Postoperative hypotension [I95.89] 07/22/2020 07/24/2020 Atelectasis [J98.11] 07/23/2020 Hypovolemia [E86.1] 07/23/2020 07/24/2020 Thrombocytopenia (HCC) [D69.6] 07/24/2020 07/26/2020 Fluid overload [E87.70] 07/25/2020 Encounter for support and coordination of trans*07/26/2020 Encounter Status:Closed by SHARLENE LO on 10/07/20 Normal [facility] PROon 09-04-2020 INR Coag (PPP) [Relative time] 4.6 {INR} High 0.9-1.2 [facility] ([place]) Comment on above: Result Comment: Mike dard Dose 2.0 - 3.0 High Dose 2.5 - 3.5 The recommended therapeutic range for oral anticoagulant therapy is: LOW RISK: Prophylaxis of venous thrombosis INR: 2.0 - 3.0 Treatment of pulmonary embolism 2.0 - 3.0 Prevention of systemic embolism 2.0 - 3.0 HIGH RISK: Mechanical prosthetic valves 2.5 - 3.5 Performed By: #### P RO #### [place] [address] [place], [place] [address] PT Coag (PPP) [Time] 50.3 s High 9.7-14.7 [facility] ([place]) Comment on above: Performed By: #### P RO #### [place] [id number] [place], [place] [address] CBCon 08-07-2020 Erythrocyte distribution width (RBC) [Ratio] 14.8 % High 11-14.5 [facility] Comment on above: Performed By: #### L 200.62135 #### [facility] [address] [place] [address] Hematocrit (Bld) [Volume fraction] 37.1 % Low 41.0-53.0 [facility] Comment on above: Performed By: #### L 200.89472 #### [facility] [address] [place] [address] Hemoglobin (Bld) [Mass/Vol] 11.8 g/dL Low 13.5-17.5 [facility] Comment on above: Performed By: #### L 200.49951 #### [facility] [address] [place] [address] MCHC (RBC) [Mass/Vol] 31.8 g/dL Low 32.0-36.0 [facility] Comment on above: Performed By: #### L 200.39096 #### [facility] [address] [place], [place] [address] MCV (RBC) [Entitic vol] 93.7 fL Normal 80.0-99.0 [facility] Comment on above: Performed By: #### L 200.12808 #### [facility] [address] [place] [address] Nucleated RBC/100 WBC (Bld) [Ratio] 0.0 % Normal Less than 1 [facility] Comment on above: Performed By: #### L 200.59652 #### [facility] [address] [place] [address] Platelet mean volume (Bld) [Entitic vol] 9.9 fL Normal 9.4-12.4 [facility] Comment on above: Performed By: #### L 200.68328 #### [facility] [address] [place] [address] Platelets (Bld) [#/Vol] 352 K/CU MM Normal 150-450 [facility] Comment on above: Performed By: #### L 200.09976 #### [facility] [address] [place] [address] RBC (Bld) [#/Vol] 3.96 M/CU MM Low 4.50-6.00 [facility] Comment on above: Performed By: #### L 200.99459 #### [facility] [address] [place] [address] WBC (Bld) [#/Vol] 8.1 K/CUMM Normal 4.5-11.0 [facility] Comment on above: Performed By: #### L 200.53271 #### [facility] [address] [place] [address] CMPon 08-07-2020 Albumin [Mass/Vol] 3.2 g/dL Normal 3.2-5.0 [facility] Comment on above: Performed By: #### L 500.10962, L500.85967 #### [facility] [address] [place] [address] Albumin/Globulin [Mass ratio] 0.8 {ratio} Normal 0.8-2.0 [facility] Comment on above: Performed By: #### L 500.28042, L500.13560 #### [facility] [place] [address] ALK PHOS 131 U/L High 45-117 [facility] Comment on above: Performed By: #### L 500.39275, L500.02460 #### [facility] [address] [place] [address] ALT [Catalytic activity/Vol] 17 U/L Normal 13-61 [facility] Comment on above: Result Comment: RESU LTS MAY BE FALSELY DEPRESSED AFTER THE ADMINISTRATION OF SULFASALAZINE AND/OR SULFAPYRIDINE. Performed By: #### L 500.84319, L500.03461 #### [facility] [address] [place] [address] Anion gap [Moles/Vol] 7 mmol/L Normal 5-16 [facility] Comment on above: Performed By: #### L 500.13354, L500.70126 #### [facility] [address] [place], [place] [address] BILI TOTAL 0.60 MG/DL Normal 0.2-1.0 [facility] Comment on above: Performed By: #### L 500.46802, L500.19301 #### [facility] [address] [place], [place] [address] Calcium [Mass/Vol] 9.6 mg/dL Normal 8.5-10.5 [facility] Comment on above: Result Comment: NOTE NEW NORMAL RANGE DUE TO REAGENT CHANGE Performed By: #### L 500.83114, L500.84066 #### [facility] [place] [address] Chloride [Moles/Vol] 103 mmol/L Normal 98-107 [facility] Comment on above: Performed By: #### L 500.68067, L500.00394 #### [facility] [place] [address] CO2 [Moles/Vol] 29.0 mmol/L Normal 21-32 [facility] Comment on above: Performed By: #### L 500.80418, L500.71135 #### [facility] [address] [place] [address] Creatinine [Mass/Vol] 0.93 mg/dL Normal 0.5-1.4 [facility] Comment on above: Result Comment: NOTE NEW NORMAL RANGE DUE TO REAGENT CHANGE Patients receiving either N-Acetylcysteine (NAC) or Metamizole prior to venipuncture, may have falsely depressed results. Performed By: #### L 500.62081, L500.94593 #### [facility] [address] [place] [address] Globulin (S) [Mass/Vol] 3.9 g/dL Normal 2.2-4.2 [facility] Comment on above: Performed By: #### L 500.84968, L500.36476 #### [facility] [address] [place] [address] Glucose [Mass/Vol] 107 mg/dL High 70-100 [facility] Comment on above: Result Comment: 70-1 00- Normal Fasting; 100-125 Impaired Fasting; greater than 126 on more than one result- Diabetes. ADA guidelines. Results may be falsely elevated after the administration of Sulfapyridine. Results may be falsely depressed after the administration of Sulfasalazine. Performed By: #### L 500.85901, L500.78804 #### [facility] [address] [place] [address] Potassium [Moles/Vol] 4.4 mmol/L Normal 3.5-5.1 [facility] Comment on above: Performed By: #### L 500.04030, L500.93399 #### [facility] [address] [place], [place] [address] Protein [Mass/Vol] 7.1 g/dL Normal 6.0-8.5 [facility] Comment on above: Performed By: #### L 500.29576, L500.12917 #### [facility] [place] [address] SGOT (AST) 23 U/L Normal 8-34 [facility] Comment on above: Result Comment: RESU LTS MAY BE FALSELY DEPRESSED AFTER THE ADMINISTRATION OF SULFASALAZINE AND/OR SULFAPYRIDINE. Performed By: #### L 500.75287, L500.55270 #### [facility] [address] [place] [address] Sodium [Moles/Vol] 139 mmol/L Normal 136-145 [facility] Comment on above: Performed By: #### L 500.51642, L500.67954 #### [facility] [address] [place] [address] Urea nitrogen [Mass/Vol] 16 mg/dL Normal 7-26 [facility] Comment on above: Performed By: #### L 500.09076, L500.56927 #### [facility] [address] [place] [address] Urea nitrogen/Creatinine [Mass ratio] 17 mg/mg Normal 15-24 [facility] Comment on above: Performed By: #### L 500.11579, L500.76668 #### [facility] [address] [place], [place] [address] GFR ESTon 08-07-2020 IF AMER Greater than 60 Normal [facility] Comment on above: Performed By: #### L 500.38983, L500.89894 #### [facility] [address] [place] [address] IF non-AFR AMER Greater than 60 Normal [facility] Comment on above: Performed By: #### L 500.09580, L500.40906 #### [facility] [address] [place] [address] PBNP TESTon 08-07-2020 Natriuretic peptide B (Bld) [Mass/Vol] 780 pg/mL High 0-450 [facility] Comment on above: Result Comment: NT-p roBNP results of less than 300 pg/ml likely rules out acute congestive heart failure with 99% predictive value. NOTE: These cuttoff points are suggested for ACUTE CHF DIAGNOSIS only Less than 50 years Greater than 450 pg/ml 50-75 years Greater than 900 pg/ml Greater than 75 years Greater than 1800 pg/ml NOTE NEW NORMAL RANGE Performed By: #### L 500.14034 #### [facility] [address] [place] [address] PTon 08-07-2020 INR Coag (PPP) [Relative time] 1.17 {INR} High 0.9-1.1 [facility] Comment on above: Result Comment: Germain mmended PT INR therapeutic range for terminal carman and prophylactic therapy is 2.0 - 3.0. For heart valve and shunt patients the range is 2.5 - 3.5. Performed By: #### L 300.61066 #### [facility] [address] [place] [address] PT Coag (PPP) [Time] 12.4 s High 9.5-12.0 [facility] Comment on above: Performed By: #### L 300.26513 #### [facility] [address] [place], [place] [address] CNPNon 08-01-2020 CNPN Telephone ([facility]) ---- HAYDEN CASE ([id number]) 1945 M Date Time Provider Department 08/01/20 CORI HOLLOWAY (JOSEF) TOMN During your visit today, we recorded the following information about you: Cori Holloway APRN.CNP 08/01/2020 9:38 AM Signed Received call from Resource nurse that pt's daughter Marisa called the with concern about her dad. He has mild shortness of breath with walking and has develop small amount of pedal edema. Otherwise, he seems to be doing ok. She was wondering if he needed some lasix. Last CXR reviewed was relatively clear. Did receive lasix IV twice daily while hospitalized. Does have follow-up with PCP in [place] next week. Advised will ecscript lasix course to [facility] and directions for use provided. Advised if his condition worsens to contact us or seek emergency care. erbalizes understanding. Patient's request for medication is as follows Signed Prescriptions Disp Refills furosemide (LASIX) 20 mg tablet 10 tablet 0 Sig: Take 1 tablet by mouth once daily for 10 days. Authorizing Provider: CORI HOLLOWAY (JOSEF) Cori Holloway APRN.CNP Allergies As of Date: 08/01/2020 Noted Allergy Reaction PENICILLINS 12/21/2019 16 - Unknown Comments: swelling in legs Date Reviewed: 07/29/2020 Reviewed by: Iris (Rn) CANDACE Pradhan - Fully Assessed Reason for Visit: Medication Request [138] Order(s):furosemide (LASIX) 20 mg tabletTake 1 tablet by mouth once daily for 10 days.Disp: 10 tabletRfl: 0 Prescriptions as of 08/01/2020 Sig: FUROSEMIDE 20 MG TABLET Take 1 tablet by mouth once d* ACETAMINOPHEN 325 MG TABLET Take 2 tablets by mouth every* METOPROLOL TARTRATE 25 MG TAB* Take a half tablet by mouth t* POLYETHYLENE GLYCOL 3350 17 G* Take 17 g by mouth once daily. SENNOSIDES 8.6 MG-DOCUSATE SO* Take 1 tablet by mouth twice * TRAMADOL 50 MG TABLET Take 1 tablet by mouth every * ATORVASTATIN 20 MG TABLET Take 20 mg by mouth daily at * ASPIRIN ORAL Take 81 mg by mouth once endy* PANTOPRAZOLE 40 MG TABLET,DEL* Take 40 mg by mouth once endy* TAMSULOSIN 0.4 MG CAPSULE Take 0.4 mg by mouth. WARFARIN 4 MG TABLET Take 4 mg by mouth daily as d* Problem List As Of Date 08/01/2020 Noted Resolved Aortic stenosis [I35.0] 07/25/2020 More... Benign hypertension [I10] 07/25/2020 BPH (benign prostatic hyperplasia) [N40.0] Diastolic dysfunction [I51.89] ED (erectile dysfunction) [N52.9] GERD (gastroesophageal reflux disease) [K21.9] H/O echocardiogram [Z92.89] 11/23/2018 07/26/2020 More... History of DVT (deep vein thrombosis) [Z86.718] More... History of stress test [Z92.89] 06/24/2015 07/26/2020 More... 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 Cellulitis [L03.90] 07/26/2020 More... Venous insufficiency [I87.2] 07/25/2020 Discharge planning issues [Z02.9] 07/19/2020 07/26/2020 More... Preop testing [Z01.818] 07/19/2020 07/25/2020 More... CAD (coronary artery disease), [place] coronary *07/19/2020 More... More... Ectatic aorta (HCC) [I77.819] 07/22/2020 More... On mechanically assisted ventilation (HCC) [Z99*07/22/2020 07/23/2020 More... Postoperative pain [G89.18] 07/22/2020 07/25/2020 More... Stress hyperglycemia [R73.9] 07/22/2020 07/26/2020 More... Postoperative hypotension [I95.89] 07/22/2020 07/24/2020 More... Atelectasis [J98.11] 07/23/2020 More... Hypovolemia [E86.1] 07/23/2020 07/24/2020 More... Thrombocytopenia (HCC) [D69.6] 07/24/2020 07/26/2020 More... Fluid overload [E87.70] 07/25/2020 More... Encounter for support and coordination of trans*07/26/2020 More... Prescriptions ordered this encounter Disp Refills Start End FUROSEMIDE 20 MG TABLET 10 t* 0 08/01/2020 08/11/2020 Route: ORAL Sig: Take 1 tablet by mouth once daily for 10 days. Encounter Status:Closed by CORI HOLLOWAY CNP on 08/01/[facility] ---- HAYDEN CASE ([id number]) 1945 M Date Time Provider Department 08/01/20 SHAHNAZ CASTILLO HVICTR During your visit today, we recorded the following information about you: Mimi Hair RN 08/01/2020 10:24 AM Signed [facility] Contact Center Inbound Phone Encounter DATE of SERVICE: 08/01/2020 TIME of SERVICE: 10:23 AM Status: Non-urgent, needs attention Service/Provider: Cardiac Surgery Shahnaz Castillo M.D. Reason for call: Shortness of Breath Contact information: Marisa Case [phone] Resolution: Other - paged [employer] - spoke with Diane Holloway Comments: Marisa Case called the [facility] post-discharge line to say her father. Hayden Case, is short of breath when walking around the house. The dyspnea is relieved with rest. He is not weighing himself daily but does notice bilateral pedal edema. He is watching his 2L fluid restriction and salt intake. He is not currently taking a diuretic and asking if he should. Plans to see his PCP next week. We discussed daily weights and Marisa indicated they will start doing that as well. Mimi Hair RN Date of Resolution: 08/01/2020 Time of Resolution 10:23 AM Allergies As of Date: 08/01/2020 Noted Allergy Reaction PENICILLINS 12/21/2019 16 - Unknown Comments: swelling in legs Date Reviewed: 07/29/2020 Reviewed by: Iris AguilarRn) CANDACE Pradhan - Fully Assessed Reason for Visit: Post Dc Program Call - Needs Attn [[id number]] Prescriptions as of 08/01/2020 Sig: FUROSEMIDE 20 MG TABLET Take 1 tablet by mouth once d* ACETAMINOPHEN 325 MG TABLET Take 2 tablets by mouth every* METOPROLOL TARTRATE 25 MG TAB* Take a half tablet by mouth t* POLYETHYLENE GLYCOL 3350 17 G* Take 17 g by mouth once daily. SENNOSIDES 8.6 MG-DOCUSATE SO* Take 1 tablet by mouth twice * TRAMADOL 50 MG TABLET Take 1 tablet by mouth every * ATORVASTATIN 20 MG TABLET Take 20 mg by mouth daily at * ASPIRIN ORAL Take 81 mg by mouth once endy* PANTOPRAZOLE 40 MG TABLET,DEL* Take 40 mg by mouth once endy* TAMSULOSIN 0.4 MG CAPSULE Take 0.4 mg by mouth. WARFARIN 4 MG TABLET Take 4 mg by mouth daily as d* Problem List As Of Date 08/01/2020 Noted Resolved Aortic stenosis [I35.0] 07/25/2020 More... Benign hypertension [I10] 07/25/2020 BPH (benign prostatic hyperplasia) [N40.0] Diastolic dysfunction [I51.89] ED (erectile dysfunction) [N52.9] GERD (gastroesophageal reflux disease) [K21.9] H/O echocardiogram [Z92.89] 11/23/2018 07/26/2020 More... History of DVT (deep vein thrombosis) [Z86.718] More... History of stress test [Z92.89] 06/24/2015 07/26/2020 More... 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 Cellulitis [L03.90] 07/26/2020 More... Venous insufficiency [I87.2] 07/25/2020 Discharge planning issues [Z02.9] 07/19/2020 07/26/2020 More... Preop testing [Z01.818] 07/19/2020 07/25/2020 More... CAD (coronary artery disease), [place] coronary *07/19/2020 More... More... Ectatic aorta (HCC) [I77.819] 07/22/2020 More... On mechanically assisted ventilation (HCC) [Z99*07/22/2020 07/23/2020 More... Postoperative pain [G89.18] 07/22/2020 07/25/2020 More... Stress hyperglycemia [R73.9] 07/22/2020 07/26/2020 More... Postoperative hypotension [I95.89] 07/22/2020 07/24/2020 More... Atelectasis [J98.11] 07/23/2020 More... Hypovolemia [E86.1] 07/23/2020 07/24/2020 More... Thrombocytopenia (HCC) [D69.6] 07/24/2020 07/26/2020 More... Fluid overload [E87.70] 07/25/2020 More... Encounter for support and coordination of trans*07/26/2020 More... Encounter Status:Closed by MIMI HAIR RN on 08/01/20 [facility] 07-31-2020 CNPN Telephone (PODCCP) ---- HAYDEN CASE ([id number]) 1945 M Date Time Provider Department 07/31/20 MALLORY RUTHERFORD (RN) PODCCP During your visit today, we recorded the following information about you: Mallory Rutherford RN, RN 07/31/2020 9:52 AM Signed Called patient after recent discharge left voice message with nurse resource number. Allergies As of Date: 07/31/2020 Noted Allergy Reaction PENICILLINS 12/21/2019 16 - Unknown Comments: swelling in legs Date Reviewed: 07/29/2020 Reviewed by: Iris (Rn) CANDACE Pradhan - Fully Assessed Reason for Visit: Follow Up Phone Call [[id number]] Cmt: [facility] 1st attempt Prescriptions as of 07/31/2020 Sig: ACETAMINOPHEN 325 MG TABLET Take 2 tablets by mouth every* METOPROLOL TARTRATE 25 MG TAB* Take a half tablet by mouth t* POLYETHYLENE GLYCOL 3350 17 G* Take 17 g by mouth once daily. SENNOSIDES 8.6 MG-DOCUSATE SO* Take 1 tablet by mouth twice * TRAMADOL 50 MG TABLET Take 1 tablet by mouth every * ATORVASTATIN 20 MG TABLET Take 20 mg by mouth daily at * ASPIRIN ORAL Take 81 mg by mouth once endy* PANTOPRAZOLE 40 MG TABLET,DEL* Take 40 mg by mouth once endy* TAMSULOSIN 0.4 MG CAPSULE Take 0.4 mg by mouth. WARFARIN 4 MG TABLET Take 4 mg by mouth daily as d* Problem List As Of Date 07/31/2020 Noted Resolved Aortic stenosis [I35.0] 07/25/2020 More... Benign hypertension [I10] 07/25/2020 BPH (benign prostatic hyperplasia) [N40.0] Diastolic dysfunction [I51.89] ED (erectile dysfunction) [N52.9] GERD (gastroesophageal reflux disease) [K21.9] H/O echocardiogram [Z92.89] 11/23/2018 07/26/2020 More... History of DVT (deep vein thrombosis) [Z86.718] More... History of stress test [Z92.89] 06/24/2015 07/26/2020 More... LVH (left ventricular hypertrophy) [I51.7] Murmur [R01.1] 07/26/2020 halfway current use of anticoagulants with IN* 07/25/2020 More... Cellulitis [L03.90] 07/26/2020 More... Venous insufficiency [I87.2] 07/25/2020 Discharge planning issues [Z02.9] 07/19/2020 07/26/2020 More... Preop testing [Z01.818] 07/19/2020 07/25/2020 More... CAD (coronary artery disease), [place] coronary *07/19/2020 More... More... Ectatic aorta (HCC) [I77.819] 07/22/2020 More... On mechanically assisted ventilation (HCC) [Z99*07/22/2020 07/23/2020 More... Postoperative pain [G89.18] 07/22/2020 07/25/2020 More... Stress hyperglycemia [R73.9] 07/22/2020 07/26/2020 More... Postoperative hypotension [I95.89] 07/22/2020 07/24/2020 More... Atelectasis [J98.11] 07/23/2020 More... Hypovolemia [E86.1] 07/23/2020 07/24/2020 More... Thrombocytopenia (HCC) [D69.6] 07/24/2020 07/26/2020 More... Fluid overload [E87.70] 07/25/2020 More... Encounter for support and coordination of trans*07/26/2020 More... Encounter Status:Closed by MALLORY RUTHERFORD on 07/31/20 Normal [facility] PROon 05-06-2020 INR Coag (PPP) [Relative time] 1.9 {INR} High 0.9-1.2 [facility] ([place]) Comment on above: Result Comment: Mike dard Dose 2.0 - 3.0 High Dose 2.5 - 3.5 The recommended therapeutic range for oral anticoagulant therapy is: LOW RISK: Prophylaxis of venous thrombosis INR: 2.0 - 3.0 Treatment of pulmonary embolism 2.0 - 3.0 Prevention of systemic embolism 2.0 - 3.0 HIGH RISK: Mechanical prosthetic valves 2.5 - 3.5 Performed By: #### G FR, ANEU, LIPID, CMP, ADIFF, TSH, CBC #### Vinod [address] [address] PT Coag (PPP) [Time] 21.7 s High 9.7-14.7 [facility] ([place]) Comment on above: Performed By: #### G FR, ANEU, LIPID, CMP, ADIFF, TSH, CBC #### [address] [address] PROon 02-20-2020 INR Coag (PPP) [Relative time] 1.5 {INR} High 0.9-1.2 [facility] ([place]) Comment on above: Result Comment: Mike dard Dose 2.0 - 3.0 High Dose 2.5 - 3.5 The recommended therapeutic range for oral anticoagulant therapy is: LOW RISK: Prophylaxis of venous thrombosis INR: 2.0 - 3.0 Treatment of pulmonary embolism 2.0 - 3.0 Prevention of systemic embolism 2.0 - 3.0 HIGH RISK: Mechanical prosthetic valves 2.5 - 3.5 Performed By: #### P RO #### [address] [address] PT Coag (PPP) [Time] 17.7 s High 9.0-14.3 [facility] ([place]) Comment on above: Performed By: #### P RO #### [address] [address] .Auto Diffon 12-08-2019 Basophil, Absolute 0.00 10 3/mcL Normal 0.00-0.19 [facility] ([place]) Comment on above: Performed By: #### G FR, ANEU, LIPID, CMP, ADIFF, TSH, CBC #### [address] [address] Basophils/100 WBC (Bld) 0.4 % Normal 0.0-2.5 A [facility] ([place]) Comment on above: Performed By: #### G FR, ANEU, LIPID, CMP, ADIFF, TSH, CBC #### [address] [address] Eosinophil, Absolute 0.20 10 3/mcL Normal 0.00-0.40 A [facility] ([place]) Comment on above: Performed By: #### G FR, ANEU, LIPID, CMP, ADIFF, TSH, CBC #### [address] [address] Eosinophils/100 WBC (Bld) 2.0 % Normal 0.0-7.0 [facility] ([place] Comment on above: Performed By: #### G FR, ANEU, LIPID, CMP, ADIFF, TSH, CBC #### [address] [address] Lymphocyte, Absolute 3.00 10 3/mcL Normal 0.77-3.85 A [facility] ([place] Comment on above: Performed By: #### G FR, ANEU, LIPID, CMP, ADIFF, TSH, CBC #### [address] [address] Lymphocytes/100 WBC (Bld) 36.6 % Normal 10.0-50.0 [facility] ([place] Comment on above: Performed By: #### G FR, ANEU, LIPID, CMP, ADIFF, TSH, CBC #### [address] [address] Monocyte, Absolute 0.80 10 3/mcL Normal 0.15-1.00 [facility] ([place] Comment on above: Performed By: #### G FR, ANEU, LIPID, CMP, ADIFF, TSH, CBC #### [address] [address] Monocytes/100 WBC (Bld) 10.1 % Normal 1.7-13.0 A [facility] ([place] Comment on above: Performed By: #### G FR, ANEU, LIPID, CMP, ADIFF, TSH, CBC #### [address] [address] Neutrophils/100 WBC (Bld) 50.9 % Normal 37.0-80.0 [facility] ([place] Comment on above: Performed By: #### G FR, ANEU, LIPID, CMP, ADIFF, TSH, CBC #### [address] [address] .GFRon 12-08-2019 GFR 78 ml/min/1.73sqm Normal [facility] ([place]) Comment on above: Result Comment: GFR Population mean for , Non- Americans Ages 20-29 = 116 mL/min/1.73 sq.m. Ages 30-39 = 107 mL/min/1.73 sq.m. Ages 40-49 = 99 mL/min/1.73 sq.m. Ages 50-59 = 93 mL/min/1.73 sq.m. Ages 60-69 = 85 mL/min/1.73 sq.m. Ages 70+ = 75 mL/min/1.73 sq.m. Chronic Kidney Disease: Less than 60 mL/min/1.73 square meters End Stage Renal Disease: Less than 15 mL/min/1.73 square meters Performed By: #### G FR, ANEU, LIPID, CMP, ADIFF, TSH, CBC #### [address] [address] GFR Non- 64 ml/min/1.73sqm Normal [facility] ([place]) Comment on above: Result Comment: GFR Population mean for , Non- Americans Ages 20-29 = 116 mL/min/1.73 sq.m. Ages 30-39 = 107 mL/min/1.73 sq.m. Ages 40-49 = 99 mL/min/1.73 sq.m. Ages 50-59 = 93 mL/min/1.73 sq.m. Ages 60-69 = 85 mL/min/1.73 sq.m. Ages 70+ = 75 mL/min/1.73 sq.m. Chronic Kidney Disease: Less than 60 mL/min/1.73 square meters End Stage Renal Disease: Less than 15 mL/min/1.73 square meters Performed By: #### G FR, ANEU, LIPID, CMP, ADIFF, TSH, CBC #### [address] [address] .NEUABSon 12-08-2019 Neutrophil, Absolute 4.20 10 3/mcL Normal 2.85-6.16 A [facility] ([place] Comment on above: Performed By: #### G FR, ANEU, LIPID, CMP, ADIFF, TSH, CBC #### [address] [address] CBCon 12-08-2019 Erythrocyte distribution width (RBC) [Ratio] 15.2 % High 11.5-14.5 [facility] ([place] Comment on above: Performed By: #### G FR, ANEU, LIPID, CMP, ADIFF, TSH, CBC #### [address] [address] Hematocrit (Bld) [Volume fraction] 42.7 % Normal 42.0-52.0 [facility] ([place] Comment on above: Performed By: #### G FR, ANEU, LIPID, CMP, ADIFF, TSH, CBC #### [address] [address] Hgb 14.1 G/dL Normal 14.0-18.0 [facility] ([place]) Comment on above: Performed By: #### G FR, ANEU, LIPID, CMP, ADIFF, TSH, CBC #### [address] [address] MCH (RBC) [Entitic mass] 29.6 pg Normal 27.0-31.2 [facility] ([place] Comment on above: Performed By: #### G FR, ANEU, LIPID, CMP, ADIFF, TSH, CBC #### [place] [address] MCHC 33.1 G/dL Normal 31.8-35.4 [facility] ([place] Comment on above: Performed By: #### G FR, ANEU, LIPID, CMP, ADIFF, TSH, CBC #### [address] [address] MCV (RBC) [Entitic vol] 89.5 fL Normal 80.0-94.0 [facility] ([place]) Comment on above: Performed By: #### G FR, ANEU, LIPID, CMP, ADIFF, TSH, CBC #### [address] [address] Platelet 246 10 3/mcL Normal 130-400 [facility] ([place] Comment on above: Performed By: #### G FR, ANEU, LIPID, CMP, ADIFF, TSH, CBC #### [address] [address] Platelet mean volume (Bld) [Entitic vol] 8.5 fL Normal 7.4-10.4 [facility] ([place] Comment on above: Performed By: #### G FR, ANEU, LIPID, CMP, ADIFF, TSH, CBC #### [address] [address] RBC 4.77 10 6/mcL Normal 4.04-6.13 [facility] ([place] Comment on above: Performed By: #### G FR, ANEU, LIPID, CMP, ADIFF, TSH, CBC #### [address] [address] WBC 8.20 10 3/mcL Normal 4.60-10.80 [facility] ([place] Comment on above: Performed By: #### G FR, ANEU, LIPID, CMP, ADIFF, TSH, CBC #### [address] [address] CMPon 12-08-2019 Albumin Level 3.5 G/dL Normal 3.4-4.8 [facility] ([place] Comment on above: Performed By: #### G FR, ANEU, LIPID, CMP, ADIFF, TSH, CBC #### [address] [address] Albumin/Globulin [Mass ratio] 0.8 {ratio} Low 1.1-2.5 [facility] ([place] Comment on above: Performed By: #### G FR, ANEU, LIPID, CMP, ADIFF, TSH, CBC #### [address] [address] ALP [Catalytic activity/Vol] 85 U/L Normal 40-135 [facility] ([place] Comment on above: Performed By: #### G FR, ANEU, LIPID, CMP, ADIFF, TSH, CBC #### [address] [address] ALT [Catalytic activity/Vol] 51 U/L High 10-35 [facility] ([place] Comment on above: Performed By: #### G FR, ANEU, LIPID, CMP, ADIFF, TSH, CBC #### [address] [address] AST [Catalytic activity/Vol] 52 U/L High 10-40 [facility] ([place] Comment on above: Performed By: #### G FR, ANEU, LIPID, CMP, ADIFF, TSH, CBC #### [address] [address] Bili Total 0.5 mg/dL Normal 0.2-1.0 [facility] ([place] Comment on above: Result Comment: Use of this assay is not recommended for patients undergoing treatment with eltrombopag due to the potential for falsely elevated results. Performed By: #### G FR, ANEU, LIPID, CMP, ADIFF, TSH, CBC #### [address] [address] BUN/Creatinine Ratio 24 ratio Normal 7-27 [facility] ([place]) Comment on above: Performed By: #### G FR, ANEU, LIPID, CMP, ADIFF, TSH, CBC #### [address] [address] Calcium [Mass/Vol] 8.9 mg/dL Normal 8.4-10.2 [facility] ([place]) Comment on above: Performed By: #### G FR, ANEU, LIPID, CMP, ADIFF, TSH, CBC #### [address] [address] Chloride [Moles/Vol] 100 mmol/L Normal 98-107 [facility] ([place] Comment on above: Performed By: #### G FR, ANEU, LIPID, CMP, ADIFF, TSH, CBC #### [address] [address] CO2 [Moles/Vol] 29 mmol/L Normal 23-31 [facility] ([place] Comment on above: Performed By: #### G FR, ANEU, LIPID, CMP, ADIFF, TSH, CBC #### [address] [address] Creatinine [Mass/Vol] 1.11 mg/dL Normal 0.70-1.30 [facility] ([place] Comment on above: Performed By: #### G FR, ANEU, LIPID, CMP, ADIFF, TSH, CBC #### [address] [address] Electrolyte Balance 8.0 mEq/L Normal [facility] ([place] Comment on above: Performed By: #### G FR, ANEU, LIPID, CMP, ADIFF, TSH, CBC #### [address] [address] Globulin 4.4 G/dL Normal [facility] ([place] Comment on above: Performed By: #### G FR, ANEU, LIPID, CMP, ADIFF, TSH, CBC #### [address] [address] Glucose [Mass/Vol] 91 mg/dL Normal 83-110 [facility] ([place]) Comment on above: Performed By: #### G FR, ANEU, LIPID, CMP, ADIFF, TSH, CBC #### [address] [address] Potassium [Moles/Vol] 4.7 mmol/L Normal 3.5-5.1 [facility] ([place] Comment on above: Performed By: #### G FR, ANEU, LIPID, CMP, ADIFF, TSH, CBC #### [address] [address] Sodium [Moles/Vol] 137 mmol/L Normal 136-145 [facility] ([place]) Comment on above: Performed By: #### G FR, ANEU, LIPID, CMP, ADIFF, TSH, CBC #### [address] [address] Total Protein 7.9 G/dL Normal 6.4-8.2 [facility] ([place] Comment on above: Performed By: #### G FR, ANEU, LIPID, CMP, ADIFF, TSH, CBC #### [address] [address] Urea nitrogen [Mass/Vol] 27 mg/dL High 7-18 [facility] ([place] Comment on above: Performed By: #### G FR, ANEU, LIPID, CMP, ADIFF, TSH, CBC #### [address] [address] LIPIDon 12-08-2019 Cholesterol [Mass/Vol] 220 mg/dL High 0-200 [facility] ([place]) Comment on above: Result Comment: Chol esterol Reference Interval: Less than 200 Desirable 200-239 Borderline high risk 240 and above High risk Performed By: #### G FR, ANEU, LIPID, CMP, ADIFF, TSH, CBC #### [address] [address] Cholesterol in HDL [Mass/Vol] 30 mg/dL Low 40-60 [facility] ([place]) Comment on above: Performed By: #### G FR, ANEU, LIPID, CMP, ADIFF, TSH, CBC #### [place] [address] [place], [place] [address] Cholesterol in LDL [Mass/Vol] 133 mg/dL High 0-130 [facility] ([place] Comment on above: Performed By: #### G FR, ANEU, LIPID, CMP, ADIFF, TSH, CBC #### [address] [address] Triglyceride [Mass/Vol] 284 mg/dL High 0-150 A [facility] ([place]) Comment on above: Result Comment: Trig lyceride Reference Interval: Less than 150 Normal 150-199 Borderline high risk 200-499 High risk 500 or higher Very high risk Performed By: #### G FR, ANEU, LIPID, CMP, ADIFF, TSH, CBC #### [place] [address] [place], [place] [address] PROon 12-08-2019 INR Coag (PPP) [Relative time] 3.1 {INR} High 0.9-1.2 [facility] ([place]) Comment on above: Result Comment: Mike dard Dose 2.0 - 3.0 High Dose 2.5 - 3.5 The recommended therapeutic range for oral anticoagulant therapy is: LOW RISK: Prophylaxis of venous thrombosis INR: 2.0 - 3.0 Treatment of pulmonary embolism 2.0 - 3.0 Prevention of systemic embolism 2.0 - 3.0 HIGH RISK: Mechanical prosthetic valves 2.5 - 3.5 Performed By: #### G FR, ANEU, LIPID, CMP, ADIFF, TSH, CBC #### [place] [address] [place], [place] [address] PT Coag (PPP) [Time] 35.2 s High 9.0-14.3 [facility] ([place]) Comment on above: Performed By: #### G FR, ANEU, LIPID, CMP, ADIFF, TSH, CBC #### [place] [address] [place], [place] [address] TSHon 12-08-2019 TSH Qn 2.46 m[IU]/L Normal 0.36-3.74 [facility] ([place]) Comment on above: Performed By: #### G FR, ANEU, LIPID, CMP, ADIFF, TSH, CBC #### [place] [address] [place], [place] [address] EMERGENCY REPORTon 0 EMERGENCY REPORT [facility] EMERGENCY ROOM REPORT NAME ACCOUNT SEX AGE ADMIT DISCHARGE PT MED. RECORD# NUMBER DATE DATE TYPE HAYDEN CASE [id number] M 74 11/23/19 1 [id number] ROOM: [facility] DATE OF : 1945 DICTATING PHYSICIAN: Mike Felipe CHIEF COMPLAINT: Fever, weakness, and cough. HISTORY OF PRESENT ILLNESS: The patient began about 2 weeks ago not feeling well. I should say that he is quite a poor historian, but he states that he initially seemed to have some fever and aching and he states that he felt a little better after a few days and the fever tended to go away. However, over the last week, he generally felt worse. He has developed increasing weakness and fatigue. He is mildly short of breath. He has developed a cough that is not productive. He does have a bit of sore throat. He states that he can eat and drink a little if somebody brings it right up to me. He thinks that he can move about from room to room, but has been too weak and tired. No nausea or vomiting. No urinary symptoms. No rash. He is not complaining of pain, otherwise just generalized aching. PAST MEDICAL HISTORY: Negative for any known medical problems. He has had a previous blood clot and is on Coumadin for that. PAST SURGICAL HISTORY: He has not had any previous surgery. MEDICATIONS: Per medication reconciliation list. ALLERGIES: Per allergy list. SOCIAL HISTORY: The patient is [place]. He does not smoke or drink alcohol. He has not been exposed to any known illness. REVIEW OF SYSTEMS: As mentioned above. No known underlying heart or lung disease, or bowel or bladder symptoms. PHYSICAL EXAMINATION: This is a 74-year-old male who is alert and appropriate. He appears ill but not toxic. He seems somewhat fatigued, but he does respond to questions appropriately. Skin is quite warm and dry, though his hands are somewhat cool. HEENT: He has fairly significant erythema diffusely to the oral mucosa and pharynx, but no exudate or lesions. Eyes, nose and tympanic membranes are normal. His neck is very supple. Breath sounds are generally equal bilaterally. No cr crackles or wheezes are heard. He does not appear tachypneic. Cardiac: Regular rhythm without ectopy or murmur. Abdomen is soft and nontender. He moves all extremities appropriately. He has chronic venous stasis changes to his lower Page 1 of 2 HAYDEN CASE Emergency Room Report HAYDEN CASE : 1945 extremities, but no redness, tenderness or asymmetry. He has weak peripheral pulses. Capillary refill is somewhat diminished at 2-3 seconds. Vital Signs: Temperature 101.8, pulse 75, respirations 16, Blood pressure 98/53. His O2 saturation is 88-89% on room air. DIAGNOSTIC DATA: Chest x-ray as read by the radiologist showed right upper and left lower small infiltrates. Lab studies returned showing a CBC with a white count of 4700. He has a generally unremarkable differential. Platelet count is borderline low at 147. INR was 1.4. CRP is 10.77. Sodium 128. BUN and creatinine 22 and 1.2. Lactate was normal at 1.6. EKG showed sinus rhythm without acute abnormalities. EMERGENCY DEPARTMENT COURSE AND TREATMENT: He was placed on O2 and he was under code precautions. IV was placed. Chest x-ray, EKG, and lab studies were obtained. Cultures were obtained. I did give him a dose of Rocephin and azithromycin in the ED. DIAGNOSIS: Febrile illness with pneumonia, probable COVID-19. PLAN/DISPOSITION: I discussed with Dr. Hernandes who will admit for further management. Dictated By: Mike Felipe MD 11/24/19 14:46 JOB #: [id number] Transcribed By: abram 11/24/19 15:34 Electronically signed by: SPEEDY Felipe M.D. 11/29/19 07:26 Page 2 of 2 HAYDEN CASE Emergency Room Report Normal [facility] MYCOPLASMA PNEUMO IGM AB [CC L]on 11-27-2019 M. pneumo IgM, Qual Negative Normal NEGAT [facility] Comment on above: Result Comment: No s ignificant amount of IgM antibodies to M. pneumoniae detected. A nonreactive result indicates no current/previous infection. Performed By: #### 2 [id number] #### [address] [address] Mycoplasma IgM AB 0.17 OD Ratio Normal [facility] Comment on above: Result Comment: Inde x Values/OD Ratios are interpreted as follows: Negative: < or = 0.90 Equivocal: 0.91 to 1.09 Positive: > or = 1.10 The magnitude of the measured result above the cutoff is not indicative of the total amount of antibody present and cannot be correlated to IFA titers. [facility] [employer] [address] [place] [id number] Collin Donis III, M.D. [id number] Performed By: #### 2 [id number] #### [address] [address] Mycoplasma IgM ABon 11-27-19 20 M. pneumo IgM, Qual Negative Normal Negative [facility] Comment on above: Performed By: #### M YCOPM #### [facility] [employer] [address] [place] [address] Mycoplasma IgM AB 0.17 OD Ratio Normal [facility] Comment on above: Performed By: #### M YCOPM #### [facility] [employer] [address] [place] [id number] PROGRESS NOTESon 11-27-2019 PROGRESS NOTES [facility] PROGRESS NOTE NAME ACCOUNT SEX AGE ADMIT DISCHARGE PT MED. RECORD# NUMBER DATE DATE TYPE HAYDEN CASE [id number] M 74 11/23/19 1 [id number] ROOM: [facility] DATE OF : 1945 DICTATING PHYSICIAN: Silvia Leung DATE OF SERVICE: November 26, 2019 This is a shared split visit with Dr. Hernandes who also rounded on and examined the patient today. SUBJECTIVE: Mr. Case is sitting up in his recliner at my time of visit. He states that he does feel a bit stronger today and he does look a little better than yesterday. He is still on 2 L of oxygen per nasal cannula; however, has not required any additional oxygen. We did have a discussion about his positive COVID test and whether he would want any extreme measures or heroic measures including intubation or chest compressions he states he would not, so we will continue to monitor him here. If thinks should worsen, we will have a discussion with him and the family about further plans but at this time, that does not include intubation. OBJECTIVE: Vital signs this morning is 92% on 2 L. Temperature is 98.6, pulse 65, respirations 18, blood pressure 132/76. HEENT is unremarkable. Neck is supple. Heart rate: Regular rate and rhythm. Does have a murmur. Lungs are diminished. He does have some scattered crackles throughout. Abdomen is soft and nontender. Lower extremities without edema. He is alert and oriented. ASSESSMENT AND PLAN: 1. Positive COVID-19 with pneumonia and hypoxia. Will continue supportive care for now. At this time patient does appear to be improving. He feels stronger than he did yesterday. Will continue with Ventolin and oxygen support. At this time the antibiotics have been held due to the viral nature of the pneumonia. 2. Patient wishes to be a DNR/Comfort Care Arrest with no intubation. We will respect his wishes and at this time we are not anticipating a decline in condition; however, this is definitely possible with the COVID virus. We had a discussion about that with him and he is adamant that there is to be no intubation. He does not also wish to be transferred at this time. Will continue close monitoring and keep in contact with his family per his request. 3. History of deep vein thrombosis. Continue patient's warfarin. He gets 15 mg daily. His INR was 2.2 today. Monitor INR daily. Dictated By: Silvia Leung APRN 11/26/19 12:32 JOB #: [id number] Transcribed By: gerardo 11/26/19 12:52 Page 1 of 2 HAYDEN CASE Progress Note HAYDEN CASE : 1945 Electronically signed by: Silvia Leung 11/27/19 08:14 Page 2 of 2 HAYDEN CASE Progress Note Normal [facility] PROGRESS NOTES [facility] PROGRESS NOTE NAME ACCOUNT SEX AGE ADMIT DISCHARGE PT MED. RECORD# NUMBER DATE DATE TYPE HAYDEN CASE [id number] M [id number] 11/23/19 1 [id number] ROOM: 311 DATE OF : 1945 DICTATING PHYSICIAN: Silvia Leung DATE OF SERVICE: November 25, 2019 This is a shared split visit with Dr. Hernandes who also rounded on and examined the patient today. SUBJECTIVE: I visited Mr. Case for quite some time this morning. He states that he has no shortness of breath. However, he does feel extremely weak. He is normally independent and he is still working, but I helped him in the room and he appeared very weak. However, he was steady and he had no concerns for falling. Overall, he denies any other major symptoms except for weakness. OBJECTIVE: VITAL SIGNS: Temperature this morning was 98.4. On the evening before, he did spike a fever of 101.9. Pulse 65, respires 18, blood pressure 108/64, oxygen saturation is 92% on room air. HEENT is unremarkable. Neck is supple. Heart has regular rate and rhythm. He does have a murmur. Lungs are diminished. He does have some scattered crackles. Respirations are slightly tachypneic, but he does not have increased work of breathing. Abdomen is soft and nontender with active bowel sounds. Lower extremities are without edema. He is alert and oriented. DIAGNOSTIC DATA: INR 1.5. ASSESSMENT/PLAN: 1. Community acquired pneumonia. Continue IV antibiotics, lung expansion, and MDI inhalers. Aerosols are being held at this time for concerns for COVID. Continue waiting on the COVID 19 test results. 2. Acute hypoxia, related to pneumonia. He is still currently on 2 liters per nasal cannula. 3. Hyponatremia. We did get urine studies and pending CT of the chest. We are waiting for the COVID result to proceed with the CT. His sodium did improve to 133 yesterday. 4. History of DVT. Continue warfarin. His INR today is 1.5. Dictated By: Silvia Leung APRN 11/25/19 12:38 JOB #: [id number] Transcribed By: abram 11/25/19 19:08 Electronically signed by: Page 1 of 2 HAYDEN CASE Progress Note HAYDEN CASE : 1945 Silvia Leung 11/27/19 08:12 Page 2 of 2 HAYDEN CASE Progress Note Normal [facility] PT/INR DAILY PATIENT ON COUM ADINon 11-27-2019 INR Coag (PPP) [Relative time] 2.9 {INR} High 0.8 - 1.2 [facility] Comment on above: Result Comment: T HE HEMOSIL THROMBOPLASTIN REAGENT USED IN THE PROTHROMBIN TIME TEST INTERACTS WITH THE DRUG CUBICIN (DAPTOMYCIN) AND WILL RESULT IN FALSELY ELEVATED PT / INR RESULTS. INR INTERPRETATION INR INDICATION PREVENTION AND TREATMENT OF THROMBOEMBOLISM ASSOCIATED WITH: 2.0 - 3.0 ATRIAL FIBRILLATION, BIOPROSTHETIC HEART VALVES, PULMONARY EMBOLISM, VENOUS THROMBOSIS, SYSTEMIC EMBOLISM POST MYOCARDIAL INFARCTION 2.5 - 3.5 MECHANICAL HEART VALVES Performed By: #### 2 69644 #### [facility],[address] [place], [place] [id number] PT-COUMADIN 31.2 sec High 9.3 - 14.1 [facility] Comment on above: Performed By: #### 2 48140 #### [facility],[address] [place] [address] 24824 BMP with eGFRon 11-26-2019 Age - Reported 74 years Normal [facility] Comment on above: Performed By: #### 2 69002 #### [facility],[address] [place] [address] 96255 Anion gap [Moles/Vol] 11 mmol/L Normal - [facility] Comment on above: Performed By: #### 2 53743 #### [facility],[address] [place] [address] 55841 Calcium [Mass/Vol] 8.0 mg/dL Low 8.6 - 10.2 [facility] Comment on above: Performed By: #### 2 23906 #### [facility],[address] [place] [address] 03568 Chloride [Moles/Vol] 100 mmol/L Normal 98 - 107 [facility] Comment on above: Performed By: #### 2 26858 #### [facility],[address] [place], [place] [id number] CO2 [Moles/Vol] 25.0 mmol/L Normal 21.0 - 31.0 [facility] Comment on above: Performed By: #### 2 20441 #### [facility],[address] [place], [place] [id number] Creatinine [Mass/Vol] 0.8 mg/dL Normal 0.7 - 1.3 [facility] Comment on above: Performed By: #### 2 67876 #### [facility],[address] [place], [place] [id number] GFR/1.73 sq M predicted among non-blacks MDRD (S/P/Bld) [Vol rate/Area] mL/min/{1.73_m2} Normal 60 - 999 [facility] Comment on above: Performed By: #### 2 82393 #### [facility],[address] [place], [place] [id number] Result Comment: ACCO RDING TO THE NATIONAL KIDNEY DISEASE EDUCATION PROGRAM(NKDE), A NORMAL eGFR IS A VALUE GREATER THAN OR EQUAL TO 60 ML/MIN/1.73 SQ METERS. CHRONIC KIDNEY DISEASE: <60mL/MIN/1.73 SQ METERS KIDNEY FAILURE: <15mL/MIN/1.73 SQ METERS THIS TEST SHOULD ONLY BE USED FOR PATIENTS 18 YEARS OF AGE AND OLDER. GFR/1.73 sq M predicted among non-blacks MDRD (S/P/Bld) [Vol rate/Area] Normal [facility] Comment on above: Result Comment: BASI C METABOLIC PANEL Performed By: #### 2 84160 #### [facility],[address],[place] [address] Glucose [Mass/Vol] 96 mg/dL Normal 74 - 106 [facility] Comment on above: Performed By: #### 2 75226 #### [facility],[address] [place] [address] 59365 Potassium [Moles/Vol] 3.9 mmol/L Normal 3.5 - 5.1 [facility] Comment on above: Performed By: #### 2 93664 #### [facility],[address] [place] [address] 89196 Sodium [Moles/Vol] 132 mmol/L Low 136 - 145 [facility] Comment on above: Performed By: #### 2 93964 #### [facility],[address] [place] [address] 34439 Urea nitrogen [Mass/Vol] 14 mg/dL Normal 6 - 20 [facility] Comment on above: Performed By: #### 2 98117 #### [facility],[address] [place] [address] 06775 CBC + DIFFon 11-26-2019 Basophils (Bld) [#/Vol] 0.00 x10EE3/UL Normal 0.00 - 0 .10 [facility] Comment on above: Performed By: #### 2 94260 #### [facility],[address] [place] [address] 20088 Basophils/100 WBC (Bld) 0.4 % Normal 0.0 - 2.0 [facility] Comment on above: Performed By: #### 2 47510 #### [facility],[address] [place] [address] 33414 CBC + DIFF Normal [facility] Comment on above: Result Comment: CBC- COMPLETE BLOOD COUNT Performed By: #### 2 68786 #### [facility],[address] [place] [address] 56603 Eosinophils (Bld) [#/Vol] 0.10 x10EE3/UL Normal 0.00 - 0.50 [facility] Comment on above: Performed By: #### 2 67813 #### [facility],[address] [place], [place] [id number] Eosinophils/100 WBC (Bld) 1.5 % Normal 0.0 - 7.0 [facility] Comment on above: Performed By: #### 2 80190 #### [facility],[address] [place] [address] Erythrocyte distribution width (RBC) [Ratio] 14.5 % Normal 12.0 - 15.6 [facility] [place] Comment on above: Performed By: #### 2 36766 #### [facility],[address] [place] [address] Hematocrit (Bld) [Volume fraction] 39.2 % Low 40.0 - 52.0 [facility] Comment on above: Performed By: #### 2 46208 #### [facility],[address] [place] [address] Hemoglobin (Bld) [Mass/Vol] 13.3 g/dL Normal 13.0 - 17.5 [facility] Comment on above: Performed By: #### 2 21876 #### [facility],[address] [place] [address] Lymphocytes (Bld) [#/Vol] 0.80 x10EE3/UL Normal 0.80 - 2.80 [facility] Comment on above: Performed By: #### 2 01213 #### [facility],[address] [place], [place] [id number] Lymphocytes/100 WBC (Bld) 14.2 % Low 20.0 - 45.0 [facility] Comment on above: Performed By: #### 2 69318 #### [facility],[address] [place], [place] [id number] MANUAL DIFF N/A Normal [facility] Comment on above: Performed By: #### 2 45462 #### [facility],[address] [place], [place] [id number] MCH (RBC) [Entitic mass] 29 pg Normal 27 - 33 [facility] Comment on above: Performed By: #### 2 62655 #### [facility],[address] [place], [place] [id number] MCHC (RBC) [Mass/Vol] 34 X10 3 Normal 32 - 36 [facility] Comment on above: Performed By: #### 2 63058 #### [facility],[address] [place], [place] [id number] MCV (RBC) [Entitic vol] 86 fL Normal 81 - 98 [facility] Comment on above: Performed By: #### 2 17171 #### [facility],[address] [place], [place] [id number] Monocytes (Bld) [#/Vol] 0.60 x10EE3/UL Normal 0.20 - 1 .00 [facility] Comment on above: Performed By: #### 2 54713 #### [facility],[address] [place], [place] [id number] MONOS % 10.0 % Normal 0.0 - 10.0 [facility] Comment on above: Performed By: #### 2 22003 #### [facility],[address] [place] [address] 00428 Morphology Dwight (Bld) [Interp] N/A Normal [facility] Comment on above: Performed By: #### 2 67579 #### [facility],[address] [place] [address] 29164 Neutrophils (Bld) [#/Vol] 4.20 x10EE3/UL Normal 1.50 - 7.10 [facility] Comment on above: Performed By: #### 2 21804 #### [facility],[address] [place], [place] [id number] Neutrophils/100 WBC (Bld) 73.9 % Normal 46.0 - 76.0 [facility] Comment on above: Performed By: #### 2 65304 #### [facility],[address] [place] [address] 84841 Platelet mean volume (Bld) [Entitic vol] 9.6 fL Normal 6.4 - 10.5 [facility] [place] Comment on above: Result Comment: AUTO MATED DIFFERENTIAL Performed By: #### 2 47628 #### [facility],[address] [place] [address] 23618 Platelets (Bld) [#/Vol] 160 x10EE3/UL Normal 150 - 450 [facility] Comment on above: Performed By: #### 2 03455 #### [facility],[address] [place] [address] 13263 RBC (Bld) [#/Vol] 4.54 x 10EE6/UL Normal 4.50 - 6.00 [facility] Comment on above: Performed By: #### 2 82117 #### [facility],[address] [place] [address] 54412 WBC (Bld) [#/Vol] 5.7 x 10EE3/UL Normal 4.5 - 10.8 [facility] Comment on above: Performed By: #### 2 05208 #### [facility],[address] [place] [address] 77840 LEGIONELLA URINARY AG [CCL]o n 11-26-2019 Legionella Urine Ag Negative Normal NEGAT [facility] Comment on above: Result Comment: Nega tive for L. pneumophila serogroup 1 antigen in urine, suggesting no recent or current infection. Legionnaires disease cannot be ruled out since other serogroups and species may also cause disease. [facility] [address] [place] [address] Collin Donis III, M.D. [id number] Performed By: #### 2 46651 #### [facility],[address] [place] [address] 61979 Legionella Urine Agon 2019 Legionella Urine Ag Normal Negative [facility] Comment on above: Result Comment: Nega tive Negative for L. pneumophila serogroup 1 antigen in urine, suggesting no recent or current infection. Legionnaires disease cannot be ruled out since other serogroups and species may also cause disease. Performed By: #### L EGUAG #### [facility] [address], [place] [address] PT/INR DAILY PATIENT ON COUM ADINon 11-26-2019 INR Coag (PPP) [Relative time] 2.2 {INR} High 0.8 - 1.2 [facility] Comment on above: Result Comment: T HE HEMOSIL THROMBOPLASTIN REAGENT USED IN THE PROTHROMBIN TIME TEST INTERACTS WITH THE DRUG CUBICIN (DAPTOMYCIN) AND WILL RESULT IN FALSELY ELEVATED PT / INR RESULTS. INR INTERPRETATION INR INDICATION PREVENTION AND TREATMENT OF THROMBOEMBOLISM ASSOCIATED WITH: 2.0 - 3.0 ATRIAL FIBRILLATION, BIOPROSTHETIC HEART VALVES, PULMONARY EMBOLISM, VENOUS THROMBOSIS, SYSTEMIC EMBOLISM POST MYOCARDIAL INFARCTION 2.5 - 3.5 MECHANICAL HEART VALVES Performed By: #### 2 64179 #### [facility],[address] [place] [address] PT-COUMADIN 23.4 sec High 9.3 - 14.1 [facility] Comment on above: Performed By: #### 2 80715 #### [facility],[address] [place], [place] [id number] CORONAVIRUS [CCL]on 11-25-19 COVID 19 Result [facility] [employer] HEAD Positive Abnormal [facility] Comment on above: Result Comment: Posi tive for COVID19 (SARS CoV2) by PCR.(*) This test was developed and its performance characteristics determined by [facility] [place]. This test has been authorized by FDA under an Emergency Use Authorization (EUA). This test has been validated in accordance with the FDA's Guidance Document Policy for Diagnostics Testing in Laboratories Certified to Perform High Complexity Testing under CLIA prior to Emergency use Authorization for Coronavirus Disease 2019 during the Public Health Emergency issued on August 05, 2019. [facility] [employer] [address] [place] [address] Collin Donis III, M.D. [id number] Performed By: #### 2 03963 #### [facility],[address] [place] [address] 44210 COVID 19 Source REFERENCE SERVICES HEAD NASOPHARYNGEAL Normal [facility] Comment on above: Performed By: #### 2 82357 #### [facility],[address] [place] [address] 73181 Coronavirus 2019on 0 COVID 19 Source REFERENCE SERVICES HEAD Normal [facility] Comment on above: Result Comment: NASO PHARYNGEAL Called to and read back by: Ranjeet Hughes [facility] 11/25/19 17:36 P deLisio COVID 19 Result REFERENCE SERVICES HEAD Abnormal Negative for COVID19 (SARS CoV2) by PCR. [facility] Comment on above: Result Comment: Posi tive for This test was developed and its performance characteristics determined by [facility] [place]. This test has been authorized by [facility] under an Emergency Use Authorization (EUA). This test has been validated in accordance with the FDA's Guidance Document Policy for Diagnostics Testing in Laboratories Certified to Perform High Complexity Testing under CLIA prior to Emergency use Authorization for Coronavirus Disease 2019 during the Public Health Emergency issued on August 05, 2019. COVID19 (SARS This test was developed and its performance characteristics determined by [facility] [place]. This test has been authorized by FDA under an Emergency Use Authorization (EUA). This test has been validated in accordance with the FDA's Guidance Document Policy for Diagnostics Testing in Laboratories Certified to Perform High Complexity Testing under CLIA prior to Emergency use Authorization for Coronavirus Disease 2019 during the Public Health Emergency issued on August 05, 2019. CoV2) by This test was developed and its performance characteristics determined by [facility] [place]. This test has been authorized by FDA under an Emergency Use Authorization (EUA). This test has been validated in accordance with the FDA's Guidance Document Policy for Diagnostics Testing in Laboratories Certified to Perform High Complexity Testing under CLIA prior to Emergency use Authorization for Coronavirus Disease 2019 during the Public Health Emergency issued on August 05, 2019. PCR.(*) This test was developed and its performance characteristics determined by [facility] [place]. This test has been authorized by FDA under an Emergency Use Authorization (EUA). This test has been validated in accordance with the FDA's Guidance Document Policy for Diagnostics Testing in Laboratories Certified to Perform High Complexity Testing under CLIA prior to Emergency use Authorization for Coronavirus Disease 2019 during the Public Health Emergency issued on August 05, 2019. PT/INR DAILY PATIENT ON COUM ADINon 11-25-2019 INR Coag (PPP) [Relative time] 1.5 {INR} High 0.8 - 1.2 [facility] Comment on above: Result Comment: T HE HEMOSIL THROMBOPLASTIN REAGENT USED IN THE PROTHROMBIN TIME TEST INTERACTS WITH THE DRUG CUBICIN (DAPTOMYCIN) AND WILL RESULT IN FALSELY ELEVATED PT / INR RESULTS. INR INTERPRETATION INR INDICATION PREVENTION AND TREATMENT OF THROMBOEMBOLISM ASSOCIATED WITH: 2.0 - 3.0 ATRIAL FIBRILLATION, BIOPROSTHETIC HEART VALVES, PULMONARY EMBOLISM, VENOUS THROMBOSIS, SYSTEMIC EMBOLISM POST MYOCARDIAL INFARCTION 2.5 - 3.5 MECHANICAL HEART VALVES Performed By: #### 2 60185 #### [facility],[address] [place] [address] PT-COUMADIN 16.1 sec High 9.3 - 14.1 [facility] Comment on above: Performed By: #### 2 42836 #### [facility],[address] [place] [address] BMP with eGFRon 11-24-2019 Age - Reported 74 years Normal [facility] Comment on above: Performed By: #### 2 09385 #### [facility],[address] [place] [address] Anion gap [Moles/Vol] 11 mmol/L Normal - [facility] Comment on above: Performed By: #### 2 35925 #### [facility],[address] [place] [address] Calcium [Mass/Vol] 8.2 mg/dL Low 8.6 - 10.2 [facility] Comment on above: Performed By: #### 2 02438 #### [facility],[address] [place] [address] 08842 Chloride [Moles/Vol] 97 mmol/L Low 98 - 107 [facility] Comment on above: Performed By: #### 2 44482 #### [facility],[address] [place], [place] [id number] CO2 [Moles/Vol] 28.1 mmol/L Normal 21.0 - 31.0 [facility] Comment on above: Performed By: #### 2 45512 #### [facility],[address] [place], [place] [id number] Creatinine [Mass/Vol] 0.9 mg/dL Normal 0.7 - 1.3 [facility] Comment on above: Performed By: #### 2 94629 #### [facility],[address] [place], [place] [id number] GFR/1.73 sq M predicted among non-blacks MDRD (S/P/Bld) [Vol rate/Area] mL/min/{1.73_m2} Normal 60 - 999 [facility] Comment on above: Result Comment: ACCO RDING TO THE NATIONAL KIDNEY DISEASE EDUCATION PROGRAM(NKDE), A NORMAL eGFR IS A VALUE GREATER THAN OR EQUAL TO 60 ML/MIN/1.73 SQ METERS. CHRONIC KIDNEY DISEASE: <60mL/MIN/1.73 SQ METERS KIDNEY FAILURE: <15mL/MIN/1.73 SQ METERS THIS TEST SHOULD ONLY BE USED FOR PATIENTS 18 YEARS OF AGE AND OLDER. Performed By: #### 2 35510 #### [facility],[address] [place] [address] 22919 GFR/1.73 sq M predicted among non-blacks MDRD (S/P/Bld) [Vol rate/Area] Normal [facility] Comment on above: Result Comment: BASI C METABOLIC PANEL Performed By: #### 2 65354 #### [facility],[address] [place] [address] 47489 Glucose [Mass/Vol] 92 mg/dL Normal 74 - 106 [facility] Comment on above: Performed By: #### 2 98359 #### [facility],[address] [place] [address] 48713 Potassium [Moles/Vol] 4.3 mmol/L Normal 3.5 - 5.1 [facility] Comment on above: Performed By: #### 2 23694 #### [facility],[address] [place] [address] 00466 Sodium [Moles/Vol] 132 mmol/L Low 136 - 145 [facility] Comment on above: Performed By: #### 2 10551 #### [facility],[address] [place], [place] [id number] Urea nitrogen [Mass/Vol] 16 mg/dL Normal 6 - 20 [facility] Comment on above: Performed By: #### 2 71824 #### [facility],[address] [place] [address] 30242 PT/INR DAILY PATIENT ON COUM ADINon 11-24-2019 INR Coag (PPP) [Relative time] 1.4 {INR} High 0.8 - 1.2 [facility] Comment on above: Result Comment: T HE HEMOSIL THROMBOPLASTIN REAGENT USED IN THE PROTHROMBIN TIME TEST INTERACTS WITH THE DRUG CUBICIN (DAPTOMYCIN) AND WILL RESULT IN FALSELY ELEVATED PT / INR RESULTS. INR INTERPRETATION INR INDICATION PREVENTION AND TREATMENT OF THROMBOEMBOLISM ASSOCIATED WITH: 2.0 - 3.0 ATRIAL FIBRILLATION, BIOPROSTHETIC HEART VALVES, PULMONARY EMBOLISM, VENOUS THROMBOSIS, SYSTEMIC EMBOLISM POST MYOCARDIAL INFARCTION 2.5 - 3.5 MECHANICAL HEART VALVES Performed By: #### 2 14459 #### [facility],[address] [place], [place] [id number] PT-COUMADIN 14.7 sec High 9.3 - 14.1 [facility] Comment on above: Performed By: #### 2 85333 #### [facility],[address] [place] [address] C-REACTIVE PROTEINon 020 CRP [Mass/Vol] 10.77 mg/dl High 0.00 - 1.00 [facility] Comment on above: Performed By: #### 2 73847 #### [facility],[address] [place] [address] CBC + DIFFon 11-23-2019 Basophils (Bld) [#/Vol] 0.00 x10EE3/UL Normal 0.00 - 0 .10 [facility] Comment on above: Performed By: #### 2 14393 #### [facility],[address] [place], [place] [id number] Basophils/100 WBC (Bld) 0.6 % Normal 0.0 - 2.0 [facility] Comment on above: Performed By: #### 2 21931 #### [facility],[address] [place] [address] CBC + DIFF Normal [facility] Comment on above: Result Comment: CBC- COMPLETE BLOOD COUNT Performed By: #### 2 42542 #### [facility],[address] [place] [address] Eosinophils (Bld) [#/Vol] 0.00 x10EE3/UL Normal 0.00 - 0.50 [facility] Comment on above: Performed By: #### 2 87644 #### [facility],[address] [place] [address] 11897 Eosinophils/100 WBC (Bld) 0.1 % Normal 0.0 - 7.0 [facility] Comment on above: Performed By: #### 2 72893 #### [facility],[address] [place] [address] Erythrocyte distribution width (RBC) [Ratio] 14.7 % Normal 12.0 - 15.6 [facility] [place] Comment on above: Performed By: #### 2 92682 #### [facility],[address] [place] [address] 59571 Hematocrit (Bld) [Volume fraction] 39.8 % Low 40.0 - 52.0 [facility] Comment on above: Performed By: #### 2 45697 #### [facility],[address] [place] [address] 62704 Hemoglobin (Bld) [Mass/Vol] 14.2 g/dL Normal 13.0 - 17.5 [facility] Comment on above: Performed By: #### 2 35670 #### [facility],[address] [place], [place] [id number] Lymphocytes (Bld) [#/Vol] 0.70 x10EE3/UL Low 0.80 - 2.80 [facility] Comment on above: Performed By: #### 2 95365 #### [facility],[address] [place], [place] [id number] Lymphocytes/100 WBC (Bld) 15.5 % Low 20.0 - 45.0 [facility] Comment on above: Performed By: #### 2 29864 #### [facility],[address] [place] [address] 93783 MANUAL DIFF N/A Normal [facility] Comment on above: Performed By: #### 2 83603 #### [facility],[address] [place] [address] 60060 MCH (RBC) [Entitic mass] 30 pg Normal 27 - 33 [facility] Comment on above: Performed By: #### 2 68259 #### [facility],[address] [place] [address] 81038 MCHC (RBC) [Mass/Vol] 36 X10 3 Normal 32 - 36 [facility] Comment on above: Performed By: #### 2 [id number] #### [facility],[address] [place] [address] 65203 MCV (RBC) [Entitic vol] 85 fL Normal 81 - 98 [facility] Comment on above: Performed By: #### 2 23939 #### [facility],[address] [place] [address] 18011 Monocytes (Bld) [#/Vol] 0.40 x10EE3/UL Normal 0.20 - 1 .00 [facility] Comment on above: Performed By: #### 2 00054 #### [facility],[address] [place] [address] 79252 MONOS % 7.9 % Normal 0.0 - 10.0 [facility] Comment on above: Performed By: #### 2 46831 #### [facility],[address] [place] [address] 61676 Morphology Dwight (Bld) [Interp] N/A Normal [facility] Comment on above: Performed By: #### 2 58421 #### [facility],[address] [place] [address] 65053 Neutrophils (Bld) [#/Vol] 3.60 x10EE3/UL Normal 1.50 - 7.10 [facility] Comment on above: Performed By: #### 2 91842 #### [facility],[address] [place] [address] 48190 Neutrophils/100 WBC (Bld) 75.9 % Normal 46.0 - 76.0 [facility] Comment on above: Performed By: #### 2 43170 #### [facility],[address] [place] [address] 38949 Platelet mean volume (Bld) [Entitic vol] 9.1 fL Normal 6.4 - 10.5 [facility] Comment on above: Result Comment: AUTO MATED DIFFERENTIAL Performed By: #### 2 21919 #### [facility],[address] [place] [address] 51255 Platelets (Bld) [#/Vol] 147 x10EE3/UL Low 150 - 450 [facility] Comment on above: Performed By: #### 2 54677 #### [facility],[address] [place] [address] 55713 RBC (Bld) [#/Vol] 4.67 x 10EE6/UL Normal 4.50 - 6.00 [facility] Comment on above: Performed By: #### 2 45471 #### [facility],[address] [place] [address] 15341 WBC (Bld) [#/Vol] 4.7 x 10EE3/UL Normal 4.5 - 10.8 [facility] Comment on above: Performed By: #### 2 23580 #### [facility],[address] [place] [address] 69384 CHEST 1 VIEWon 11-23-2019 CHEST 1 VIEW [place] [address] Patient: HAYDEN CASE Phone#: : 1945 Age: 74 Gender: M Pt. Type: ER Account: [id number] Location: [facility] Ordering: MIKE FELIPE Exam Date: 11/23/2019/14:36 Family Phys: CONOR KINSEY Charge Code: 418240 Physician: [place] Order #: [id number] DLP Dose#: PROCEDURE: X-RAY CHEST 1 VIEW COMPARISON: None. INDICATIONS: Shortness of breath FINDINGS: LUNGS: Irregular patchy density in the right upper lobe and possible patchy density in the left lung base. VASCULATURE: Normal. Unremarkable pulmonary vasculature. CARDIAC: Normal. No cardiac silhouette abnormality or cardiomegaly. MEDIASTINUM: Normal. No visible mass or adenopathy. PLEURA: Normal. No effusion or pleural thickening. BONES: Normal. No fracture or visible bony lesion. OTHER: Monitoring leads project across the thorax. CONCLUSION: 1. Right upper lobe probable infiltrate 2. Left lower lobe atelectasis versus infiltrate. Dictated by: Mariela Mason MD on 11/23/2019 at 14:54 Approved by: Mariela Mason MD on 11/23/2019 at 14:54 Normal [facility] CMP with eGFRon 11-23-2019 Age - Reported 74 years Normal [facility] Comment on above: Performed By: #### 2 37018 #### [facility],[address] [place] [address] 91125 Albumin [Mass/Vol] 3.7 g/dL Normal 3.4 - 4.8 [facility] Comment on above: Performed By: #### 2 08971 #### [facility],[address] [place] [address] 80458 Albumin/Globulin [Mass ratio] 1.2 {ratio} Normal 0.9 - 1.6 [facility] Comment on above: Performed By: #### 2 16033 #### [facility],[address] [place] [address] 86430 ALK PHOS 31 U/L Low 38 - 126 [facility] Comment on above: Performed By: #### 2 53201 #### [facility],[address] [place] [address] 43067 ALT/SGPT 24 U/L Normal 10 - 40 [facility] Comment on above: Performed By: #### 2 45754 #### [facility],[address] [place] [address] 44277 Anion gap [Moles/Vol] 11 mmol/L Normal 10 - 20 [facility] Comment on above: Performed By: #### 2 92471 #### [facility],[address] [place] [address] 97834 AST/SGOT 40 U/L High 13 - 39 [facility] Comment on above: Performed By: #### 2 54254 #### [facility],[address] [place] [address] 37907 B/C RATIO 18 ratio Normal 0 - 30 [facility] Comment on above: Performed By: #### 2 18365 #### [facility],[address] [place] [address] 45808 Bilirubin [Mass/Vol] 0.9 mg/dL Normal 0.0 - 1.5 [facility] Comment on above: Performed By: #### 2 06553 #### [facility],[address] [place] [address] 17458 Calcium [Mass/Vol] 8.2 mg/dL Low 8.6 - 10.2 [facility] Comment on above: Performed By: #### 2 84167 #### [facility],[address] [place] [address] 02019 Chloride [Moles/Vol] 93 mmol/L Low 98 - 107 [facility] Comment on above: Performed By: #### 2 71089 #### [facility],[address] [place] [address] 25444 CO2 [Moles/Vol] 28.1 mmol/L Normal 21.0 - 31.0 [facility] Comment on above: Performed By: #### 2 90446 #### [facility],[address] [place] [address] 39834 Creatinine [Mass/Vol] 1.2 mg/dL Normal 0.7 - 1.3 [facility] Comment on above: Performed By: #### 2 41492 #### [facility],[address] [place] [address] 79833 GFR/1.73 sq M predicted among non-blacks MDRD (S/P/Bld) [Vol rate/Area] mL/min/{1.73_m2} Normal 60 - 999 [facility] Comment on above: Result Comment: ACCO RDING TO THE NATIONAL KIDNEY DISEASE EDUCATION PROGRAM(NKDE), A NORMAL eGFR IS A VALUE GREATER THAN OR EQUAL TO 60 ML/MIN/1.73 SQ METERS. CHRONIC KIDNEY DISEASE: <60mL/MIN/1.73 SQ METERS KIDNEY FAILURE: <15mL/MIN/1.73 SQ METERS THIS TEST SHOULD ONLY BE USED FOR PATIENTS 18 YEARS OF AGE AND OLDER. Performed By: #### 2 55929 #### [facility],[address] [place] [address] 74421 GFR/1.73 sq M predicted among non-blacks MDRD (S/P/Bld) [Vol rate/Area] 59 ML/MINUTE Low 60 - 999 [facility] Comment on above: Performed By: #### 2 99914 #### [facility],[address] [place] [address] 66888 GFR/1.73 sq M predicted among non-blacks MDRD (S/P/Bld) [Vol rate/Area] Normal [facility] Comment on above: Result Comment: COMP REHENSIVE METABOLIC PANEL Performed By: #### 2 53295 #### [facility],[address] [place] [address] 62731 Globulin (S) [Mass/Vol] 3.2 g/dL Normal 1.5 - 3.8 [facility] Comment on above: Performed By: #### 2 81321 #### [facility],[address] [place] [address] 26358 Glucose [Mass/Vol] 117 mg/dL High 74 - 106 [facility] Comment on above: Performed By: #### 2 09911 #### [facility],[address] [place] [address] 78844 Potassium [Moles/Vol] 3.6 mmol/L Normal 3.5 - 5.1 [facility] Comment on above: Performed By: #### 2 05093 #### [facility],[address] [place] [address] 38107 Protein [Mass/Vol] 6.9 g/dL Normal 6.4 - 8.3 [facility] Comment on above: Performed By: #### 2 10709 #### [facility],[address] [place] [address] 75833 Sodium [Moles/Vol] 128 mmol/L Low 136 - 145 [facility] Comment on above: Performed By: #### 2 87480 #### [facility],[address] [place] [address] 42763 Urea nitrogen [Mass/Vol] 22 mg/dL High 6 - 20 [facility] Comment on above: Performed By: #### 2 06760 #### [facility],[address] [place] [address] 50929 CULTURE URINEon 11-23-2019 CULTURE URINE CULTURE URINE _URINE CULTURE_ M I C R O B I O L O G Y R E P O R T FINAL Antimicrobial Susceptibility and Organism Identification Report Specimen Number : [id number] Requested : 11/23/19 Specimen Source : URINE Collected : 11/23/19 16:53 [place] [facility] [place] : MED/SURG Received : 11/23/19 16:53 Requesting Physician : TUNG GALAVIZ Patient/Specimen Tests and Comments Specimen Comments FINAL REPORT: NO GROWTH AT 48 HOURS Tech : Source : URINE ID # : [id number] FINAL Report Date : / / : Collected : 11/23/19 16:53 11/26/19.1322.KLS. 11/25/19.1309.KLS. 11/26/19.1322.KLS.C OMPLETE Normal [facility] Comment on above: Performed By: #### 2 21663 #### [facility],[address] [place] [address] LACTATEon 11-23-2019 Lactate [Moles/Vol] 1.6 mmol/L Normal 0.5 - 2.0 [facility] Comment on above: Performed By: #### 2 05419 #### [facility],[address] [place], [place] [address] OSMOLALITY - URINEon 020 OSMO URINE 601 mOsm/kg Normal 150 - 1000 [facility] Comment on above: Performed By: #### 2 72956 #### [facility],[address] [place], [place] [id number] PROTHROMBIN TIME AND INRon 11-23-2019 INR Coag (Bld) [Relative time] Normal [facility] Comment on above: Result Comment: PROT HROMBIN TIME AND INR Performed By: #### 2 92754 #### [facility],[address] [place], [place] [id number] INR Coag (PPP) [Relative time] 1.4 {INR} High 0.8 - 1.2 [facility] Comment on above: Result Comment: T HE HEMOSIL THROMBOPLASTIN REAGENT USED IN THE PROTHROMBIN TIME TEST INTERACTS WITH THE DRUG CUBICIN (DAPTOMYCIN) AND WILL RESULT IN FALSELY ELEVATED PT / INR RESULTS INR INTERPRETATION INR INDICATION PREVENTION AND TREATMENT OF THROMBOEMBOLISM ASSOCIATED WITH: 2.0 - 3.0 ATRIAL FIBRILLATION, BIOPROSTHETIC HEART VALVES, PULMONARY EMBOLISM, VENOUS THROMBOSIS, SYSTEMIC EMBOLISM POST MYOCARDIAL INFARCTION 2.5 - 3.5 MECHANICAL HEART VALVES Performed By: #### 2 14251 #### [facility],[address] [place] [address] PT-COUMADIN 15.5 sec High 9.3 - 14.1 [facility] Comment on above: Performed By: #### 2 72930 #### [facility],[address] [place] [address] SODIUM,URINE,RANDOMon 2019 RANDOM UR NA 55.0 mmol/L Normal [facility] Comment on above: Performed By: #### 2 18307 #### [facility],[address] [place] [address] 47073 URINALYSISon 11-23-2019 Amorphous NONE Normal [facility] Comment on above: Performed By: #### 2 87746 #### [facility],[address] [place] [address] Bacteria LM.HPF (Urine sed) [#/Area] NONE Normal [facility] Comment on above: Performed By: #### 2 43072 #### [facility],[address] [place] [address] 72964 Bilirubin [Mass/Vol] Negative Normal NORMAL: NEGATIVE [facility] Comment on above: Performed By: #### 2 66346 #### [facility],[address] [place], [place] [id number] Blood Negative Normal NORMAL: NEGATIVE [facility] Comment on above: Performed By: #### 2 88367 #### [facility],[address] [place] [address] 67973 Casts LM.LPF (Urine sed) [#/Area] NONE Normal [facility] Comment on above: Performed By: #### 2 47097 #### [facility],[address] [place], [place] [id number] Clarity (U) clear Normal NORMAL: CLEAR [facility] Comment on above: Performed By: #### 2 50455 #### [facility],[address] [place] [address] 16602 Color (U) yellow Normal NORMAL: YELLOW [facility] Comment on above: Performed By: #### 2 49824 #### [facility],[address] [place] [address] 52588 Crystals LM Nom (Urine sed) NONE Normal [facility] Comment on above: Performed By: #### 2 87275 #### [facility],[address] [place] [address] 02965 Epi Cells NONE Normal [facility] Comment on above: Performed By: #### 2 77564 #### [facility],[address] [place] [address] 85855 Glucose [Mass/Vol] NORM Normal NORMAL: NORMAL [facility] Comment on above: Performed By: #### 2 66061 #### [facility],[address] [place] [address] 15556 Ketone Negative Normal NORMAL: NEGATIVE [facility] Comment on above: Performed By: #### 2 48154 #### [facility],[address] [place] [address] 62972 Microscopic SEE BELOW Normal [facility] Comment on above: Result Comment: MICR OSCOPIC Performed By: #### 2 02622 #### [facility],[address] [place] [address] 67350 Mucous NONE Normal [facility] Comment on above: Performed By: #### 2 44954 #### [facility],[address] [place] [address] 04590 Nitrite Ql (U) Negative Normal NORMAL: NEGATIVE [facility] Comment on above: Performed By: #### 2 25621 #### [facility],[address] [place] [address] 45270 pH (Bld) 6 Normal NORMAL: 5.0-8.0 [facility] Comment on above: Performed By: #### 2 18384 #### [facility],[address] [place] [address] Protein (U) [Mass/Vol] 15 mg/dL Abnormal URBANO L: NEGATIVE [facility] Comment on above: Performed By: #### 2 79263 #### [facility],[address] [place] [address] Rbc NONE Normal 0-3/hpf [facility] Comment on above: Performed By: #### 2 20991 #### [facility],[address] [place] [address] Sp Mason 1.015 Normal NORMAL: 1.010-1.030 [facility] Comment on above: Performed By: #### 2 40073 #### [facility],[address] [place] [address] Specimen type Nom (Spec) UNSPECIFIED Normal [facility] Comment on above: Performed By: #### 2 02639 #### [facility],[address] [place] [address] Urobilinog NORM Normal NORMAL: NORMAL [facility] Comment on above: Performed By: #### 2 24353 #### [facility],[address] [place] [address] Wbc 1-5 Normal 0-5/hpf [facility] Comment on above: Performed By: #### 2 85819 #### [facility],[address] [place] [address] WBC (Bld) [#/Vol] 25 Abnormal NORMAL: NEGATIVE [facility] Comment on above: Performed By: #### 2 82506 #### [facility],[address] [place] [address] Yeast LM Ql (Urine sed) NONE Normal [facility] Comment on above: Performed By: #### 2 06977 #### [facility],[address] [place] [address] Vital Signs Date Time Vital Sign Value Performing Clinician Rafykhurram jatinder 01-02-2025 09:01-0400 Body temperature 98.4 [degF] Dr. Guillaume Javed MD Work Phone: [facility] 01-02-2025 09:01-0400 Diastolic blood pressure 94 mm[Hg] Dr. Guillaume Javed MD Work Phone: [facility] 01-02-2025 09:01-0400 Heart rate 76 /min Dr. Guillaume Javed MD Work Phone: [facility] 01-02-2025 09:01-0400 Respiratory rate 18 /min Dr. Guillaume Javed MD Work Phone: [facility] 01-02-2025 09:01-0400 SaO2% (BldA) [Mass fraction] 95 % Dr. Guillaume Javed MD Work Phone: [facility] 01-02-2025 09:01-0400 Systolic blood pressure 158 mm[Hg] Dr. Guillaume Javed MD Work Phone: [facility] 12-28-2024 10:21-0400 Body height 180.[address] Guillaume Javed MD Work Phone: [facility] 12-28-2024 10:21-0400 Body mass index (BMI) [Ratio] 31.2 kg/m2 Dr. Guillaume Javed MD Work Phone: [facility] 12-28-2024 10:21-0400 Body temperature 98.2 [degF] Dr. Guillaume Javed MD Work Phone: [facility] 12-28-2024 10:21-0400 Body weight 101.[address] Guillaume Javed MD Work Phone: [facility] 12-28-2024 10:21-0400 Diastolic blood pressure 73 mm[Hg] Dr. Guillaume Javed MD Work Phone: [facility] 12-28-2024 10:21-0400 Heart rate 67 /min Dr. Guillaume Javed MD Work Phone: [facility] 12-28-2024 10:21-0400 SaO2% (BldA) [Mass fraction] 96 % Dr. Guillaume Javed MD Work Phone: [facility] 12-28-2024 10:21-0400 Systolic blood pressure 121 mm[Hg] Dr. Guillaume Javed MD Work Phone: [facility] 12-15-2024 08:25-0400 Body height 180.[address] Guillaume Javed MD Work Phone: [facility] 12-15-2024 08:25-0400 Body mass index (BMI) [Ratio] 31.5 kg/m2 Dr. Guillaume aJved MD Work Phone: [facility] 12-15-2024 08:25-0400 Body weight 102.[address] Guillaume Javed MD Work Phone: [facility] 12-15-2024 08:25-0400 Diastolic blood pressure 48 mm[Hg] Dr. Guillaume Javed MD Work Phone: [facility] 12-15-2024 08:25-0400 Heart rate 55 /min Dr. Guillaume aJved MD Work Phone: [facility] 12-15-2024 08:25-0400 Respiratory rate 18 /min Dr. Guillaume Javed MD Work Phone: [facility] 12-15-2024 08:25-0400 SaO2% (BldA) [Mass fraction] 92 % Dr. Guillaume Javed MD Work Phone: [facility] 12-15-2024 08:25-0400 Systolic blood pressure 96 mm[Hg] Dr. Guillaume Javed MD Work Phone: [facility] 11-17-2024 08:19-0400 Body height 180.[address] Guillaume Javed MD Work Phone: [facility] 11-17-2024 08:19-0400 Body mass index (BMI) [Ratio] 31.4 kg/m2 Dr. Guillaume Javed MD Work Phone: [facility] 11-17-2024 08:19-0400 Body temperature 97.4 [degF] Dr. Guillaume Javed MD Work Phone: [facility] 11-17-2024 08:19-0400 Body weight 102.[address] Guillaume Javed MD Work Phone: [facility] 11-17-2024 08:19-0400 Diastolic blood pressure 72 mm[Hg] Dr. Guillaume Javed MD Work Phone: [facility] 11-17-2024 08:19-0400 Heart rate 68 /min Dr. Guillaume Javed MD Work Phone: [facility] 11-17-2024 08:19-0400 Respiratory rate 16 /min Dr. Guillaume Javed MD Work Phone: [facility] 11-17-2024 08:19-0400 SaO2% (BldA) [Mass fraction] 95 % Dr. Guillaume Javed MD Work Phone: [facility] 11-17-2024 08:19-0400 Systolic blood pressure 126 mm[Hg] Dr. Guillaume Javed MD Work Phone: [facility] 06-18-2023 08:29-0500 Body height 180.[address] Guillaume Javed Work Phone: [facility] 06-18-2023 08:29-0500 Body mass index (BMI) [Ratio] 33.6 kg/m2 Dr. Guillaume Javed Work Phone: [facility] 06-18-2023 08:29-0500 Body temperature 97.1 [degF] Dr. Guillaume Jvaed Work Phone: [facility] 06-18-2023 08:29-0500 Body weight 109.[address] Guillaume Javed Work Phone: [facility] 06-18-2023 08:29-0500 Diastolic blood pressure 70 mm[Hg] Dr. Guillaume Javed Work Phone: [facility] 06-18-2023 08:29-0500 Heart rate 57 /min Dr. Guillaume Javed Work Phone: [facility] 06-18-2023 08:29-0500 Respiratory rate 16 /min Dr. Guillaume Javed Work Phone: [facility] 06-18-2023 08:29-0500 SaO2% (BldA) [Mass fraction] 95 % Dr. Guillaume Javed Work Phone: [facility] 06-18-2023 08:29-0500 Systolic blood pressure 120 mm[Hg] Dr. Guillaume Javed Work Phone: [facility] 06-04-2023 08:54-0500 Body mass index (BMI) [Ratio] 33.7 kg/m2 Dr. Guillaume Javed Work Phone: [facility] 06-04-2023 08:54-0500 Body weight 109.[address] Guillaume Javed Work Phone: [facility] 06-04-2023 08:54-0500 Diastolic blood pressure 66 mm[Hg] Dr. Guillaume Javed Work Phone: [facility] 06-04-2023 08:54-0500 Heart rate 54 /min Dr. Guillaume Javed Work Phone: [facility] 06-04-2023 08:54-0500 Respiratory rate 16 /min Dr. Guillaume Javed Work Phone: [facility] 06-04-2023 08:54-0500 Systolic blood pressure 133 mm[Hg] Dr. Guillaume Javed Work Phone: [facility] 10-02-2022 08:38-0400 Body height 180.[address] Guillaume Javed Work Phone: [facility] 10-02-2022 08:38-0400 Body mass index (BMI) [Ratio] 33.5 kg/m2 Dr. Guillaume Javed Work Phone: [facility] 10-02-2022 08:38-0400 Body weight 108.[address] Guillaume Javed Work Phone: [facility] 10-02-2022 08:38-0400 Diastolic blood pressure 85 mm[Hg] Dr. Guillaume Javed Work Phone: [facility] 10-02-2022 08:38-0400 Heart rate 55 /min Dr. Guilalume Javed Work Phone: [facility] 10-02-2022 08:38-0400 Respiratory rate 18 /min Dr. Guillaume Javed Work Phone: [facility] 10-02-2022 08:38-0400 SaO2% (BldA) [Mass fraction] 95 % Dr. Guillaume Javed Work Phone: [facility] 10-02-2022 08:38-0400 Systolic blood pressure 135 mm[Hg] Dr. Guillaume Javed Work Phone: [facility] 07-31-2022 11:06-0500 Body height 180.[address] Guillaume Javed Work Phone: [facility] 07-31-2022 11:06-0500 Body mass index (BMI) [Ratio] 34.2 kg/m2 Dr. Guillaume Javed Work Phone: [facility] 07-31-2022 11:06-0500 Body temperature 95 [degF] Dr. Guillaume Javed Work Phone: [facility] 07-31-2022 11:06-0500 Body weight 111.[address] Guillaume Javed Work Phone: [facility] 07-31-2022 11:06-0500 Diastolic blood pressure 76 mm[Hg] Dr. Guillaume Javed Work Phone: [facility] 07-31-2022 11:06-0500 Heart rate 53 /min Dr. Guillaume Javed Work Phone: [facility] 07-31-2022 11:06-0500 Respiratory rate 18 /min Dr. Guillaume Javed Work Phone: [facility] 07-31-2022 11:06-0500 SaO2% (BldA) [Mass fraction] 96 % Dr. Guillaume Javed Work Phone: [facility] 07-31-2022 11:06-0500 Systolic blood pressure 118 mm[Hg] Dr. Guillaume Javed Work Phone: [facility] 01-16-2022 08:13-0400 Body height 180.[address] Guillaume Javed Work Phone: [facility] Work Phone: 01-16-2022 08:13-0400 Body mass index (BMI) [Ratio] 34.1 kg/m2 Dr. Guillaume Javed Work Phone: [facility] Work Phone: 01-16-2022 08:13-0400 Body temperature 97.3 [degF] Dr. Guillaume Javed Work Phone: [facility] Work Phone: 01-16-2022 08:13-0400 Body weight 110.[address] Guillaume Javed Work Phone: [facility] Work Phone: 01-16-2022 08:13-0400 Diastolic blood pressure 74 mm[Hg] [facility] Gu[facility]aved [facility] [facility] Work Phone: 01-16-2022 08:13-0400 Heart rate 60 /min Dr. Guillaume Javed Work Phone: [facility] Work Phone: 01-16-2022 08:13-0400 Respiratory rate 16 /min Dr. Guillaume Javed Work Phone: [facility] Work Phone: 01-16-2022 08:13-0400 SaO2% (BldA) [Mass fraction] 96 % Dr. Guillaume Javed Work Phone: [facility] Work Phone: 01-16-2022 08:13-0400 Systolic blood pressure 130 mm[Hg] Dr. Guillaume Javed Work Phone: [facility] Work Phone: 08-22-2021 09:45-0400 Body height 180.[address] Conor Kinsey Work Phone: [facility] Work Phone: 08-22-2021 09:45-0400 Body weight 107.[address] Conor Kinsey Work Phone: [facility] Work Phone: 08-22-2021 09:45-0400 Diastolic blood pressure 78 mm[Hg] Dr. Conor Kinsey Work Phone: [facility] Work Phone: 08-22-2021 09:45-0400 Heart rate 56 /min Dr. Conor Kinsey Work Phone: [facility] Work Phone: 08-22-2021 09:45-0400 Respiratory rate 16 /min Dr. Conor Kinsey Work Phone: [facility] Work Phone: 08-22-2021 09:45-0400 Systolic blood pressure 136 mm[Hg] Dr. Conor Kinsey Work Phone: [facility] Work Phone: 10-09-2020 09:05-0400 Body mass index (BMI) [Ratio] 31.1 kg/m2 Dr. Conor Kinsey Work Phone: [facility] Work Phone: Encounters Encounter Date Encounter Type Care Provider Facility Start: 01-12-2025 ambulatory Guillaume Alanis ty:[facility] Start: 01-02-2025 End: 01-02-2025 Patient encounter procedure Aminata Ledbetter NP-C -[facility] Work Phone: Start: 01-02-2025 End: 01-02-[address] Guillaume Javed MD Work Phone: -[facility] Start: 12-28-2024 End: 12-28-2024 Patient encounter procedure Ricky Gerardogerri REFERENCE SERVICES HEAD-C -[facility] Work Phone: Start: 12-28-2024 End: 12-28-[address] Guillaume Javed MD Work Phone: -[facility] Start: 12-15-2024 End: 12-15-2024 Patient encounter procedure Shilo MCCORD -[facility] Work Phone: Start: 12-15-2024 End: 12-15-[address] Guillaume Javed MD Work Phone: -[facility] Start: 11-17-2024 End: 11-17-[address] Guillaume Javed MD -[facility] Work Phone: Start: 11-17-2024 End: 11-17-[address] Guillaume Javed MD Work Phone: [facility] Work Phone: Start: 11-17-2024 End: 11-17-[facility] Start: 05-19-2024 End: 05-19-2024 ambulatory Alondrabrantfarrah Scoutsixto Facility:[facility] Start: 01-14-2024 ambulatory Cate Hunter Facility: [facility] Start: [facility]-14-[facility] Start: 01-14-2024 End: 01-14-2024 ambulatory [facility] Facility:[facility] Start: 06-18-2023 End: 06-18-[address] Guillaume Javed Work Phone: [facility] Work Phone: Start: 06-18-2023 End: 06-18-[address] Guillaume Javed Work Phone: [facility] Work Phone: Start: 06-04-2023 End: 06-04-[address] Guillaume Javed Work Phone: [facility] Work Phone: Start: 10-09-2022 Non-patient / Non-visit Dr. Leonora Javed Work Phone: [facility] Start: 10-09-2022 End: 10-09-[address] Guillaume Javed Work Phone: [facility] Work Phone: Start: 10-09-2022 End: 10-09-[address] [facility] Start: 10-02-2022 End: 10-02-[address] Guillaume Javed Work Phone: [facility] Work Phone: Start: 10-02-2022 End: 10-02-[address] Guillaume Javed Work Phone: [facility] Start: 10-02-2022 End: 10-02-[address] Guillaume Javed Work Phone: [facility] Start: 08-19-[address] Hardeep Javed Work Phone: [facility] Start: 07-31-2022 End: 07-31-[address] Guillaume Javed Work Phone: [facility] Work Phone: Start: 07-31-2022 End: 07-31-[address] Guillaume Javed Work Phone: [facility] Start: 01-16-2022 End: 01-16-[address] Guillaume Javed Work Phone: [facility] Start: 11-28-2021 End: 11-28-[address] Conor Kinsey Work Phone: [facility] Start: 08-22-2021 End: 08-22-[address] Conor Kinsey Work Phone: [facility] Start: 11-22-2020 End: 11-05-2021 Lab-Standing Order [facility] MORGAN BONE PA [facility] Start: 11-23-2019 End: 11-27-2019 Evaluation and management of inpatient CONOR KINSEY [facility] Procedures Date Procedure Procedure Detail Performing Clinician Start: 11-17-2024 Prostate specific an tigen measurement Dr. Guillaume Javed MD Work Phone: Comment on above: This test was perfor med using the [employer] tPSA method. Measured values of a patient sample can vary depending on the testing procedure used. PSA values determined on patient samples by different testing procedures cannot be used interchangeably. If there is a change in PSA assays while monitoring therapy, sequential testing should be performed to confirm baseline values. Start: 07-08-2020 History of coronary artery bypass grafting History of coronary artery bypass surgery Shilo MCCORD Comment on above: CABG x2-KALIA to the LAD, SVG to the first diagonal branch 07/22/20 Start: 11-23-2019 Urinalysis CONOR MCKINLEY Comment on above: Result Comment: URIN ALYSIS Performed By: #### [id number] #### [facility],[address] [place], [place] [id number] Start: 11-23-2019 Microscopic examinat ion of blood, culture CONOR KINSEY Comment on above: Performed By: #### [id number] #### [facility],[address] [place] [id number] Start: 06-07-2014 Amputated thumb (finding) MS MORA LIZANDRO MCCORD Comment on above: left Closed reduction of nasal fracture MS MORA LIZANDRO MCCORD Hernia repair MS MORGAN BONE FLEX Comment on above: inguinal right History of repair of musculotendinous cuff of shoulder MS MORGAN HANCOCKVCI MCCORD Comment on above: right Primary repair of um bilical hernia MS MORGAN LZIANDRO MCCORD Plan of Treatment Date Care Activity Detail Author Start: 11-17-2024 CBC W Auto Different ial panel - Blood [facility] Start: 11-17-2024 Comprehensive metabo lic 2000 panel - Serum or Plasma [facility] Start: 11-17-2024 Prostate specific an tigen measurement [facility] Start: 11-17-2024 T4 free measurement [facility] Start: 11-17-2024 Thyroid stimulating hormone measurement [facility] Alanine aminotransfe rase [Enzymatic activity/volume] in Serum or Plasma [facility] Albumin [Mass/volume ] in Serum or Plasma [facility] Alkaline phosphatase [Enzymatic activity/volume] in Serum or Plasma [facility] Anion gap in Serum or Plasma [facility] Bilirubin, total measurement [facility] Bilirubin.direct [Ma ss/volume] in Serum or Plasma [facility] BUN/Creatinine ratio [facility] Calcium [Mass/volume ] in Serum or Plasma [facility] Carbon dioxide, tota l [Moles/volume] in Central venous blood [facility] Cholesterol [Mass/vo lume] in Serum or Plasma [facility] Cholesterol in HDL [ Mass/volume] in Serum or Plasma [facility] Creatinine [Mass/vol ume] in Serum or Plasma [facility] Erythrocyte mean cor puscular volume determination [facility] Glucose [Mass/volume ] in Serum or Plasma [facility] Hematocrit [Volume F raction] of Blood [facility] Hemoglobin [Mass/volume] in Blood [facility] Leukocytes [#/volume] in Blood [facility] Low density lipoprot ein cholesterol measurement [facility] Mean corpuscular hem oglobin concentration determination [facility] Mean corpuscular hem oglobin determination [facility] Measurement of renal function [facility] Natriuretic peptide. B prohormone N-Terminal [Mass/volume] in Serum or Plasma [facility] Neutrophil count [facility] Neutrophil percent d ifferential count [facility] Platelets [#/volume] in Blood [facility] Potassium measurement [facility] Radionuclide imaging of perfusion of myocardium under exercise stress [facility] Red blood cell count [facility] Red cell distributio n width determination [facility] Serum chloride measurement [facility] Sodium measurement [facility] Total cholesterol:HD L ratio measurement [facility] Total protein measurement [facility] Triglycerides measurement [facility] Urea nitrogen [Mass/ volume] in Serum or Plasma [facility] US Carotid arteries [facility] VLDL cholesterol measurement [facility] Payers Date Payer Category Payer Self-pay [id number] 2023 Unknown [id number] 1945 Unknown [id number] 2.16.84 [id number] Unknown [id number] Unknown [id number] 2.16.8 [id number] Unknown [id number] 2.16.8 [id number] Unknown [id number] 2.16.8 [id number] Unknown [id number] 2.16.8 [id number] Unknown [id number] 2.16.8 [id number] Unknown [id number] 2.16.8 [id number] Unknown [id number] 2.16.8 [id number] Unknown [id number] 2.16.8 [id number] Unknown [id number] 2.16.8 [id number] Unknown [id number] 2.16.8 [id number] Social History Date Type Detail Facility Start: 08-05-2018 End: 06-18-2023 Tobacco smoking status Ex-smoker (finding) [facility] Comment on above: quit 15 years ago Start: 1945 Sex Assigned At Male A [facility] Start: 08-22-2021 End: 06-18-2023 Tobacco smoking status NHIS Unknown if ever smoked [facility] Clinical Notes 07-08-2020 to 12-28-2024 Note Date & Type Note Facility 12-28-2024 Progress note [facility] 12-28-2024 Progress note Note Date/Time December 28, 2024 10:33am [facility] [address], [address] [place] [address] OFFICE VISIT Date of Service: 12/28/24 MR#: [id number] Acct: [id number] Name: HAYDEN CASE Rep #: [id number] : 1945 Provider: BISHOP Holloway Age/Sex: 79/M Location: [facility] Status: Signed Intake Vital Signs 12/15/24 08:25 12/28/24 10:21 Height 5 ft 11 in 5 ft 11 in Weight: 226 lb 224 lb BMI 31.5 31.2 BP 96/48 L 121/73 H Blood Pressure Location Lt brachial Lt brachial Position Sitting Sitting Respiration 18 Pulse 55 L 67 Pulse Source Monitor Monitor Temp 98.2 F Temp Source Temporal Pulse Oximetry (%) 92 96 Oxygen Delivery Method room air room air Intake Visit Reasons: LEFT LEG INFECTED/ SORES Chief Complaint: 6 M FU Allergies Penicillins Adverse Reaction (Unknown, Verified 12/28/24 10:22) Extreme Pain Medications ?Medication ?Instructions ?Recorded ?Confirmed ?Type aspirin 81 mg tablet,delayed 81 mg PO DAILY #1 TAB 12/2512/28/24 Rx release omega-3 fatty acids 1,000 mg 1,000 mg PO DAILY 12/28/24 History capsule (Fish Oil Concentrate) polyethylene glycol 3350 17 gram 17 g PO DAILY 12/28/24 History oral powder packet (Miralax) tamsulosin 0.4 mg capsule 0.4 mg PO QHS #90 caps 03/1712/28/24 Rx apixaban 5 mg tablet (Eliquis) 5 mg PO BID #180 tabs 1 06/28/23 12/28/24 Rx atorvastatin 20 mg tablet 20 mg PO QHS #90 tabs 12/28/24 Rx lansoprazole 30 mg capsule,delayed 30 mg PO DAILY #90 caps 11/17/24 12/28/24 Rx release (Prevacid) cephalexin 500 mg capsule 500 mg PO Q6H 7 days #28 cap s 12/28/24 12/28/24 Rx Have you fallen in the past year?: No PFSH Medical History (Updated 12/28/24 @ 10:31 by BISHOP Patel) Cellulitis of left lower leg Tremor Low back pain Bilateral hip pain Hypersomnolence Rib pain on left side Bilateral lower extremity edema Ulcer of right lower extremity with fat layer exposed Chronic pain of both ears Abdominal hernia CAD (coronary artery disease) Right knee pain Enlarged prostate Bilateral hydronephrosis Abdominal pain BPH (benign prostatic hyperplasia) Left flank pain Calcific tendinitis of left shoulder Left shoulder pain Aortic root dilatation Atherosclerotic heart disease of [place] coronary artery without angina pectoris Mixed hyperlipidemia GERD (gastroesophageal reflux disease) BPH (benign prostatic hyperplasia) PAD (peripheral artery disease) Non-rheumatic mitral regurgitation Non-rheumatic aortic regurgitation Nonrheumatic aortic (valve) stenosis Essential hypertension Peripheral neuropathy History of DVT (deep vein thrombosis) Surgical History History of ascending aorta repair (~07/22/20) History of aortic valve replacement with bioprosthetic valve (~07/22/20) History of coronary artery bypass surgery (~07/22/20) History of right and left heart catheterization (LHC) (~06/21/20) History of hernia repair Family History Other Sudden cardiac Social History household members: children housing: house Smoking Status: Former smoker how long ago did patient quit smokin years ago alcohol intake: never substance use type: does not use caffeine: Yes Type: coffee Number of servings: 1 what type of physical activity do you participate in: none do you feel safe at home: Yes HPI HPI Chief Complaint: 6 M FU Details: HAYDEN CASE, is a 79 M who presents to the office today for HPI: Patient presents today complaining of increased redness and swelling to his leftlower extremity. He notes that he does have chronic vascular changes however hefeels that over the last several days it has worsened becoming more red and swollen. Patient does have a history of DVT for which he takes Eliquis and denies any missed doses. Denies any fever. Denies any trauma to the leg. ROS: As noted in HPI Physical Exam: VITALS: Reviewed. GEN: Healthy appearing, well-developed, NAD. PSYCH: AOx3. Normal memory, mood, and affect. HEENT -Eyes: -No discharge or redness; -Ears: -Mouth and throat: Moist mucous membranes. NECK: CV: Regular rate and rhythm LUNGS: Normal respiratory effort. Lungs clear bilaterally. SKIN: Warm, well perfused. Chronic vascular changes and erythema to the left lower leg from the lower calf down to and including the left foot. There are several ulcerated areas. No obvious drainage noted. No obvious streaking noted. MSK: Normal gait. No calf or popliteal tenderness. NEURO: Ambulating with no limitations. Normal muscle strength and tone. No focaldeficits. Coding Level of Care Code Off vis,new,level 3 Diagnoses Cellulitis of left lower leg L03.116 Assessment and Plan Assessment and Plan (1) Cellulitis of left lower leg: Status: Acute Plan: On evaluation patient subjectively noted that the erythema and color changes were different but not markedly so. Patient had no specific calf or popliteal tenderness and denied any missed doses of his Eliquis making DVT less likely option. I did not appreciate any obvious streaking up into the calf and leg on the left side. Patient's vital signs here were unremarkable showing no signs oftachycardia or fever. I did have a long discussion with patient and family about my concerns for severe cellulitis versus DVT versus MRSA versus simple cellulitis. After discussion patient does prefer to attempt initial treatment with Keflex understanding that there is a good possibility that this will not completely cover his symptoms then he will need to go to the ER for further evaluation. I reviewed with him warning signs such as increased pain, swelling,fever, and/or tachycardia at which point he should go directly to the emergency department to which he understands and was agreeable. Medications: New cephalexin 500 mg PO Q6H 28 caps 0RF 7 days Clinical Quality Measures Falls Risk Screening/Assistive Devices Have you fallen in the past year?: No 12/28/24 1033 <Electronically signed by iRcky Polo> Date _ Ricky Jewel REFERENCE SERVICES HEAD-C Cosigner Signature: Date (if applicable) CC: ~ [facility] Work Phone: 1(697) 424-368506-13-2025 Evaluation note* Diagnosis Onset Date Resolution Status Admit Date BPH (benign prostatic hyperplasia) chronic November 17, 2024 8:12am Essential hypertension chronic Ju ne 2024 8:12am GERD (gastroesophageal reflu x disease) chronic November 17, 2024 8:12am Tremor chronic November 17 8:12am [facility] Work Phone: 1(247) 671-952506-13-2025 Evaluation note* Diagnosis Onset Date Resolution Status Admit Date BPH (benign prostatic hyperplasia) chronic November 17, 2024 8:12am Essential hypertension chronic Ju ne 2024 8:12am GERD (gastroesophageal reflu x disease) chronic November 17, 2024 8:12am Tremor chronic November 17 8:12am halfway (current) use of anticoagulants acute December 15, 2024 8:22am Atherosclerotic heart diseas e of [place] coronary artery without angina pectoris chronic December 8:22am Essential hypertension chronic Ju ly 2024 8:22am History of aortic valve replacement with bioprosthetic valve July, chronic December 15, 2024 8:22am History of ascending aorta repair July, chronic December 15, 2024 8:22am History of coronary artery bypass surgery July, chronic December 15, 2024 8:22am Mixed hyperlipidemia chronic December 15, 2024 8:22am [facility] Work Phone: 1(394) 883-470006-13-2025 Evaluation note* Diagnosis Onset Date Resolution Status Admit Date BPH (benign prostatic hyperplasia) chronic November 17, 2024 8:12am Essential hypertension chronic Ju ne 2024 8:12am GERD (gastroesophageal reflu x disease) chronic November 17, 2024 8:12am Tremor chronic November 17 8:12am Atherosclerotic heart diseas e of [place] coronary artery without angina pectoris chronic December 8:22am Essential hypertension chronic Ju 2024 8:22am History of aortic valve replacement with bioprosthetic valve July, chronic December 15, 2024 8:22am History of ascending aorta repair July, chronic December 15, 2024 8:22am History of coronary artery bypass surgery July, chronic December 15, 2024 8:22am 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 December 15, 2024 8:22am Mixed hyperlipidemia chronic December 15, 2024 8:22am Cellulitis of left lower leg acute December 28, 2024 9:53am [facility] Work Phone: 1(398) 720-347302-01-2021 Evaluation note* Diagnosis Onset Date Resolution Status Atherosclerotic heart diseas e of [place] coronary artery without angina pectoris chronic Essential hypertension chron ic History of aortic valve repl acement with bioprosthetic valve July, chronic History of ascending aorta repair July, chronic History of coronary artery bypass surgery July, chronic Mixed hyperlipidemia [facility] Work Phone: 1(656) 127-465302-01-2021 Evaluation note* Diagnosis Onset Date Resolution Status Abnormality on screening test acute Vision loss of right eye acu te Essential hypertension chron ic History of aortic valve repl acement with bioprosthetic valve July, chronic History of ascending aorta repair July, chronic History of coronary artery bypass surgery July, chronic Mixed hyperlipidemia chronic Bilateral hip pain chronic BPH (benign prostatic hyperplasia) chronic Essential hypertension chron ic GERD (gastroesophageal reflux disease) chronic Low back pain [facility] Work Phone: Evaluation + Plan note No data available for this section [facility] Evaluation note* Diagnosis Onset Date Resolution Status Abdominal hernia chronic BPH (benign prostatic hyperplasia) chronic Chronic pain of both ears ch ronic Essential hypertension chron ic [facility] Work Phone: Evaluation note* Diagnosis Onset Date Resolution Status BPH (benign prostatic hyperplasia) chronic Essential hypertension chron ic GERD (gastroesophageal reflux disease) [facility] Work Phone: Evaluation note* Diagnosis Onset Date Resolution Status BPH (benign prostatic hyperplasia) chronic Essential hypertension chron ic GERD (gastroesophageal reflux disease) chronic Abnormality on screening test acute Essential hypertension chron ic History of aortic valve repl acement with bioprosthetic valve July, chronic History of ascending aorta repair July, chronic History of coronary artery bypass surgery July, chronic Mixed hyperlipidemia [facility] Work Phone: Evaluation noteNo assessment information available [facility] Work Phone: Hospital Discharge instructions No data available for this section [facility] Progress note No data available for this section [facility] Reason for referral (narrative)[facility] Work [facility]: Summary Purpose Family History No Family History Records Found Relationship Condition Age at Onset Recorded Date/T elena Not Specified Sudden cardiac Unknown Advance Directives No Advanced Directives Records Found Advance Directive Response Recorded Date/ Time Advance Directives No June 21, 2020 9:14am Living Will No June 21 9:14am Power of Head Start Director No June 21, 2020 9:14am Advance Directive Response Recorded Date/ Time Advance Directives No June 21, 2020 8:14am Living Will No June 21 8:14am Power of Head Start Director No June 21, 2020 8:14am Advance Directive Response Recorded Date/ Time Advance Directives No June 21, 2020 9:14am Advance Directive Response Recorded Date/ Time Living Will No June 21 9:14am Do you have a Healthcare Power of Head Start Director? No June 21, 2020 9:14am Advance Directives No June 21, 2020 9:14am Hospital Course Note [facility] DISCHARGE SUMMARY NAME ACCOUNT SEX AGE ADMIT DISCHARGE PT MED. RECORD# NUMBER DATE DATE TYPE HAYDEN CASE [id number] M 74 11/23/19 11/27/19 [id number] ROOM: [facility] DATE OF : 1945 ATTENDING PHYSICIAN: Silvia [...] This is a 74-year-old normally healthy, active St. [facility] gentleman who presented to the (more content not included)... Chief Complaint and Reason for Visit Chief Complaint 10 m fu INT LABS Reason for Visit Atherosclerotic hear t disease of [place] coronary artery without angina pectoris Essential hypertension History of aortic valve replacement with bioprosthetic valve History of ascending aorta repair History of coronary artery bypass surgery Mixed hyperlipidemia Chief Complaint INT LABS 6 M FU Reason for Visit Abdominal hernia BPH (benign prostatic hyperplasia) Chronic pain of both ears Essential hypertension Chief Complaint 6 m fu Reason for Visit BPH (benign prostati c hyperplasia) Essential hypertension GERD (gastroesophageal reflux disease) Chief Complaint 6 m fu SCREENING/ANNAMARIA 6 M FU E ORDERS Reason for Visit BPH (benign prostati c hyperplasia) Essential hypertension GERD (gastroesophageal reflux disease) Abnormality on screening test Essential hypertension History of aortic valve replacement with bioprosthetic valve History of ascending aorta repair History of coronary artery bypass surgery Mixed hyperlipidemia Chief Complaint 6 m fu SCREENING/ANNAMARIA 6 M FU E ORDERS ABNORMAL LIFE LINE OF SCREENING HX OF VISION LOSS Reason for Visit BPH (benign prostati c hyperplasia) Essential hypertension GERD (gastroesophageal reflux disease) Abnormality on screening test Essential hypertension History of aortic valve replacement with bioprosthetic valve History of ascending aorta repair History of coronary artery bypass surgery Mixed hyperlipidemia Chief Complaint 6 M FU 4 M FU Reason for Visit Abnormality on scree tyler test Vision loss of right eye Essential hypertension History of aortic valve replacement with bioprosthetic valve History of ascending aorta repair History of coronary artery bypass surgery Mixed hyperlipidemia Bilateral hip pain BPH (benign prostatic hyperplasia) Essential hypertension GERD (gastroesophageal reflux disease) Low back pain Chief Complaint Admit Date 6 M FU November 17, 2024 8:12 am Reason for Visit Admit Date BPH (benign prostatic hyperplasia) November 17, 2024 8:12am Essential hypertension November 17, 2024 8 :12am GERD (gastroesophageal reflux disease) [facility] 8:12am Tremor November 17, 2024 8:12 am Chief Complaint Admit Date 6 M FU November 17, 2024 8:12 am 1 Y FU December 15, 2024 8:22 am Reason for Visit Admit Date BPH (benign prostatic hyperplasia) November 17, 2024 8:12am Essential hypertension November 17, 2024 8 :12am GERD (gastroesophageal reflux disease) [facility] 8:12am Tremor November 17, 2024 8:12 am halfway (current) use of anticoagulant s December 15, 2024 8:22am Atherosclerotic heart diseas e of [place] coronary artery without angina pectoris December 15, 2024 8:22am Essential hypertension December 15, 2024 8 :22am History of aortic valve replacement with bioprosthetic valve December 15, 2024 8:22am History of ascending aorta repair December [id number] 8:22am History of coronary artery bypass surger y December 15, 2024 8:22am Mixed hyperlipidemia December 15, 2024 8:2 2am Chief Complaint Admit Date 6 M November 17, 2024 8:12 am 1 Y FU December 15, 2024 8:22 am LEFT LEG INFECTED/ SORES December 28, 2024 9:53am Reason for Visit Admit Date BPH (benign prostatic hyperplasia) November 17, 2024 8:12am Essential hypertension November 17, 2024 8 :12am GERD (gastroesophageal reflux disease) [facility] 20[facility] 8:12am Tremor November 17, 2024 8:12 am Atherosclerotic heart diseas e of [place] coronary artery without angina pectoris December 15, 2024 8:22am Essential hypertension December 15, 2024 8 :22am History of aortic valve replacement with bioprosthetic valve December 15, 2024 8:22am History of ascending aorta repair December [id number] 8:22am History of coronary artery bypass surger y December 15, 2024 8:22am 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 F/U January 02, 2025 8 :51am Additional Source Comments (unrecognized sect ion and content) No Status Records FoundNo Status Records FoundNo Status Records FoundNo Status Records FoundNo Status Records FoundNo Status Records Found INFORMATION SOURCE (unrecogn ized section and content) DATE CREATED AUTHOR 12/23/2019 [facility] DATE CREATED AUTHOR AUTHOR'S ORGANIZ ATION 12/28/2019 [facility] DATE CREATED AUTHOR AUTHOR'S ORGANIZ ATION 08/14/2020 [facility] DATE CREATED AUTHOR AUTHOR'S ORGANIZ ATION 11/23/2020 [facility] ([place] DATE CREATED AUTHOR AUTHOR'S ORGANIZ ATION 07/30/2021 [facility] DATE CREATED AUTHOR AUTHOR'S ORGANIZ ATION 01/12/2025 [facility] Care Team (unrecognized sect ion and content) Team Status: Active Member Role Status Dates Dr. Conor Kinsey MD Family Provider Active Dr. Guillaume Javed MD Primary Care Provider Active Team Status: Inactive Member Role Status Dates Dr. Guillaume Javed MD Primary Care P julia, Attending Provider, Referring Provider Active Team Status: Inactive Member Role Status Dates Dr. Guillaume Javed MD Primary Care Provider, Refer ring Provider Active Lena Roman REFERENCE SERVICES HEAD, REFERENCE SERVICES HEAD-C Attending Provider Active Team Status: Active Member Role Status Dates Dr. Guillaume Javed MD Primary Care Provider Active Self Referred Attending Provider, Referring Provider A ctive Team Status: Inactive Member Role Status Dates Dr. Guillaume Javed MD Primary Care Provider Active Lena Roman REFERENCE SERVICES HEAD, REFERENCE SERVICES HEAD-C Attending Provider, Referring Pro vider Active Team Status: Active Member Role Status Dates Dr. Guillaume Javed MD Primary Care Provider Active Dr. Jenaro Perez MD Attending Provider Active Team Status: Inactive Member Role Status Dates Dr. Guillaume Javed MD Primary Care Provider Active Start: November 17, 2024 End: November 17, 2024 Dr. Guillaume Javed MD Attending Provider Active Start: November 17, 2024 End: November 17, 2024 Dr. Guillaume Javed MD Referring Provider Active Start: November 17, 2024 End: November 17, 2024 Team Status: Active Member Role Status Dates Dr. Guillaume Javed MD Primary Care Provider Active Start: November 17, 2024 Dr. Guillaume Javed MD Attending Provider Active Start: November 17, 2024 Dr. Guillaume Javed MD Referring Provider Active Start: November 17, 2024 Team Status: Active Member Role/Relationship Status Dates Dr. Conor Kinsey MD Family Provider Active Dr. Guillaume Javed MD Primary Care Provider Active Team Status: Inactive Member Role/Relationship Status Dates Dr. Guillaume Javed MD Primary Care Provider Active Start: November 17, 2024 End: November 17, 2024 Dr. Guillaume Javed MD Attending Provider Active Start: November 17, 2024 End: November 17, 2024 Dr. Guillaume Javed MD Referring Provider Active Start: November 17, 2024 End: November 17, 2024 Team Status: Inactive Member Role/Relationship Status Dates Dr. Guillaume Javed MD Primary Care Provider Active Start: November 17, 2024 End: November 17, 2024 Dr. Guillaume Javed MD Attending Provider Active Start: November 17, 2024 End: November 17, 2024 Dr. Guillaume Javed MD Referring Provider Active Start: November 17, 2024 End: November 17, 2024 Team Status: Inactive Member Role/Relationship Status Dates Dr. Guillaume Javed MD Primary Care Provider Active Start: December 15, 2024 End: December 15, 2024 Dr. Guillaume Javed MD Referring Provider Active Start: December 15, 2024 End: December 15, 2024 FLEX Bañuelos Attending Provider Active St art: December 15, 2024 End: December 15, 2024 Team Status: Active Member Role/Relationship Status Dates Dr. Guillaume Javed MD Primary Care Provider Active Team Status: Inactive Member Role/Relationship Status Dates Dr. Guillaume Javed MD Primary Care Provider Active Start: December 28, 2024 End: December 28, 2024 Dr. Guillaume Javed MD Referring Provider Active Start: December 28, 2024 End: December 28, 2024 BISHOP Patel Attending Provider Active Star t: December 28, 2024 End: December 28, 2024 Team Status: Inactive Member Role/Relationship Status Dates Dr. Guillaume Javed MD Primary Care Provider Active Start: January 02, 2025 End: January 02, 2025 Dr. Guillaume Javed MD Referring Provider Active Start: January 02, 2025 End: January 02, 2025 BISHOP Neil Attending Provider Active Start: January 02, 2025 End: January 02, 2025 Goals (unrecognized section and content) Goals may be documented in a n alternate section FOR RECORDS PERTAINING TO PATIENTS WHO ARE [...] BE BASED ON THE PRIMARY CLINICAL RECORDS. [facility] [employer] provides no warranty or guarantee of the accuracy or completeness of information in this document.
[2025-01-12 09:45] LABS: Hematocrit 39.9 % (40-54); Hemoglobin 13.1 g/dL (13.0-16.5); Immature Granulocytes Count 0.030 X10^3/uL (0.0-0.0); Mean Corp Hgb Conc 32.8 g/dL (32-36); Mean Corpuscular Volume 91.5 fL (80-94); Mean Platelet Vol. 10.3 fl (6.2-12.0); NRBC Flagged by Analyzer 0 % (0-5); Platelet Count 148 K/mm3 (150-450); RBC Distribution Width CV 13.5 % (11.6-14.6); RBC Distribution Width SD 45.9 fl (35.1-43.9); Red Blood Count 4.36 M/mm3 (4.6-6.2); White Blood Count 5.3 K/mm3 (4.4-11.0)
[2025-01-12 11:31] LABS: AST(SGOT) 30 U/L (<=37); Alanine Aminotransfer ALT/SGPT 20 U/L (<=46); Albumin, Serum 4.3 g/dL (3.4-4.8); Alkaline Phosphatase 61 U/L (40-129); Bilirubin, Direct 0.25 mg/dL (0.00-0.30); Globulin 3.0 g/dL (2.2-4.2)
[2025-01-12 11:47] LABS: Cholesterol 157 mg/dL (<=200); Low Density Lipoprotein Calc. 78 mg/dL; Triglycerides 110 mg/dL; Very Low Density Lipoprotein 22 mg/dL (5-40); cholesterol:hdl ratio screen 2.77
[2025-01-12 13:18] LABS: Pro- Brain NATRIURETIC PEPTIDE 384 pg/mL (<=1800)
--- NOTE | 2025-01-15 18:51 | STRESSREP ---
Stress Test Report Pharmacologic myocardial perfusion stress test. 79-year-old man with a history of chest pain Resting EKG demonstrates sinus bradycardia with a rate of 55 bpm. Resting blood pressure is 124/70 mmHg. 0.4 mg of regadenoson was infused per usual protocol followed by rapid intravenous saline flush injection. Continuous EKG monitoring was performed. The maximum heart rate was 80 bpm which was 57% of max impacted heart rate the maximum workload was 1 metabolic equivalent. At rest there were no ST or T wave changes noted to suggest ischemia and at peak infusion nonspecific ST changes were noted which did not meet the criteria for ischemia. No clinical angina is noted. The final blood pressure was 118/68 mmHg. the patient had previously undergone an exercise stress test but was only able to exercise for 2-1/2 minutes. There was failure to obtain 85% of maximum predicted heart rate, and premature ventricular complexes were noted. Patient was therefore determined to be suboptimal for this test and therefore was switched to a pharmacologic test. Myocardial perfusion protocol. 13.4 mCi of technetium 99m sestamibi was injected at rest. 0.4 mg of regadenoson was infused per usual protocol. At peak infusion 39.2 mCi of technetium 99m sestamibi was injected stress images were obtained stress and rest images were reconstructed and compared in the short axis vertical long and horizontal long axis. Gated images were also obtained. Perfusion SPECT analysis: Review of the stress images demonstrate normal uptake of tracer noted in all areas of the myocardium. The resting images similar demonstrated normal uptake of tracer noted in all areas of the myocardium. No areas of reversibility are noted to suggest ischemia and no previous infarct is noted. Gated SPECT analysis: The gated ejection fraction is 57%. Conclusion: Normal pharmacologic myocardial perfusion stress test. Preserved ejection fraction.
== END | disposition home or self-care (01) ==
PROVIDERS: Nurse Practitioner Family; PCP Internal Medicine; Referring Provider Student in an Organized Health Care Education/Training Program; Visit Provider Student in an Organized Health Care Education/Training Program
DX: R06.09 Other forms of dyspnea (principal); I25.10 Atherosclerotic heart disease of native coronary artery without angina pectoris; E78.2 Mixed hyperlipidemia; K21.9 Gastro-esophageal reflux disease without esophagitis
CPT/HCPCS: 36415; 78452; 80061; 80076; 83880; 85025; 93017; A9500; A4216; J2785